=== PATIENT | female | born 1945 | race Caucasian/White ===

== ENCOUNTER 2016-12-10 19:11 | Inpatient (IN) | payer MEDICARE ==
[2016-12-10] MEDS ORDERED: Morphine INJ* 10 MG/ML 1 ML SYRINGE SUBCUT ONE (20:29)
[2016-12-10] MEDS ORDERED: Morphine INJ* 10 MG/ML 1 ML SYRINGE IV ONE ×2 (20:38→23:20)
[2016-12-10 21:15] LABS: Hematocrit 34 % (35-47); Hemoglobin 10.7 g/dl (12.0-16.0); Mean Corpuscular HGB Conc 31 g/dl (31-36); Mean Corpuscular Hemoglobin 25 pg (27-31); Mean Corpuscular Volume 79 fL (80-97); Mean Platelet Volume 7 um3 (7.4-10.4); Red Blood Count 4.33 10^6/ul (4.0-5.4); Red Cell Distribution Width 17 % (10.5-15)
[2016-12-10 21:22] LABS: Albumin 3.7 g/dL (3.2-5.2); BUN/Creatinine Ratio 16.9 (8-20); C Reactive Protein 18.43 mg/L (< 5.00); Calcium 9.2 mg/dL (8.6-10.3); EGFR African American 87.4 (>60); Globulin 3.5 g/dL (2-4); Potassium 4.4 mmol/L (3.5-5.0); Total Bilirubin 0.7 mg/dL (0.2-1.0); Total Protein 7.2 g/dL (6.4-8.9)
[2016-12-10] MEDS ORDERED: oxyCODONE/Acetamin 5/325 MG* TAB PO ONE (22:45)
[2016-12-11] MEDS ORDERED: Morphine INJ* 10 MG/ML 1 ML SYRINGE IV ONE (03:43)
[2016-12-11] MEDS ORDERED: Bisacodyl SUPP* 10 MG SUPP PR PRN (05:18)
--- NOTE | 2016-12-11 07:41 | RAD ---
HISTORY: Pain and weakness, leg giving out, right hip COMPARISONS: None VIEWS: 4, Frontal view of the pelvis with frontal and frog-leg views of the right hip FINDINGS: BONE DENSITY: Normal. BONES: There is no displaced fracture. JOINTS: There is mild osteoarthritis of the hips and SI joints bilaterally. ALIGNMENT: There is no dislocation. SOFT TISSUES: Unremarkable. OTHER FINDINGS: Degenerative changes are noted of the spine IMPRESSION: OSTEOARTHRITIS. NO ACUTE OSSEOUS INJURY. IF SYMPTOMS PERSIST, RECOMMEND REPEAT IMAGING.
--- NOTE | 2016-12-11 07:42 | RAD ---
HISTORY: Pain, weakness, right knee tibia COMPARISONS: None VIEWS: 5, Frontal, lateral, axial, and oblique views of the right knee. The axial views are technically limited. FINDINGS: BONE DENSITY: There is diffuse osteopenia. BONES: There is no displaced fracture. JOINTS: There is advanced tricompartmental osteoarthritis. ALIGNMENT: There is no dislocation. SOFT TISSUES: Unremarkable. OTHER FINDINGS: None. IMPRESSION: ADVANCED OSTEOARTHRITIS. NO ACUTE OSSEOUS INJURY. IF SYMPTOMS PERSIST, RECOMMEND REPEAT IMAGING.
--- NOTE | 2016-12-11 07:44 | RAD ---
HISTORY: Right lower extremity pain COMPARISONS: April 27, 2013 TECHNIQUE: Multiple transverse and longitudinal ultrasound images were obtained of the right lower extremity from the level of the common femoral vein inferiorly through to the infrapopliteal veins using grayscale, color Doppler, and spectral Doppler imaging with and without compression and with augmentation. Comparison images were obtained of the contralateral common femoral vein. FINDINGS: The study is limited by patient body habitus. There is limited evaluation of the peroneal veins. VEINS: The venous system of the right lower extremity is compressible throughout its course, with normal flow on color Doppler imaging and normal response to augmentation on spectral Doppler imaging. SOFT TISSUES: Unremarkable. OTHER FINDINGS: None. IMPRESSION: LIMITED STUDY. NO RIGHT LOWER EXTREMITY DEEP VEIN THROMBOSIS
--- NOTE | 2016-12-11 08:11 | ED ---
Wilbert Chávez Janilya, scribed for Griselda Fields MD on 12/10/16 at 1953 . Lower Extremity - HPI Summary HPI Summary: A 71 y/o female came in to [facility] presenting w/ a gradual onset of constant chronic R leg pain. Severity rated 8/10 per triage note. Pt states a month ago, pt was given Lasix by Dr. Saenz for pedal edema. When she has shoes on, the edema is more under control. Today, pt had Lasix at 1330 20 mg. At 1500, pt reports knee swelling, numbness, prickly sensation, and pain to touch. At 1800, pt could not ambulate or stand up. She states her leg was "bent". Also, pt has started physical therapy on Wednesday, 12/08. She believes she might have pulled a muscle during PT because she started having front leg pain. In addition, pt has been doing heel to toe home exercises. Pt states on the third day of the second week, she started having severe hip pain. Pt was seen at [facility] for lab work today. Pt usually takes Oxycodone and oxycontin prescribed by Dr. Olson for chronic pain. Pt has had several Doppler studies - all normal according to pt. PMHx PE 3 years ago. - History of Current Complaint Chief Complaint: EDExtremityLower Stated Complaint: RT LEG PAIN Time Seen by Provider: 12/10/16 19:17 Hx Obtained From: Patient, Family/Public Policy Professor - daughter Onset of Pain: Days Onset/Duration: Worse Since - Physical therapy on 12/08 Severity Initially: Moderate Severity Currently: Moderate Pain Intensity: 8 Pain Scale Used: 0-10 Numeric Timing: Constant Location: Is Discrete @ - right leg Character Of Pain: Aching Associated Signs And Symptoms: Positive: Swelling, Knee Pain Aggravating Factor(s): Standing, Ambulation, Weight Bearing Alleviating Factor(s): Nothing Able to Bear Weight: No - Risk Factors Gout Risk Factors: Diabetes, Obesity DVT Risk Factors: Prior PE, Other: - morbid obesity Septic Arthritis Risk Factor: Negative - Allergies/Home Medications Allergies/Adverse Reactions: Allergies Allergy/AdvReac Type Severity Reaction Status Date / Time Clindamycin Allergy Nausea Verified 05/12/14 11:14 crab Allergy Hives Uncoded 04/27/13 13:58 Home Medications: Home Medications Furosemide [Lasix] 20 mg PO DAILY 12/10/16 [History Confirmed 12/10/16] Warfarin Sodium [Coumadin] 2.5 mg PO QPM 12/10/16 [History Confirmed 12/10/16] PMH/Surg Hx/FS Hx/Imm Hx Previously Healthy: No - morbid obesity Endocrine/Hematology History: Reports: 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 Denies: Hx Diabetes Cardiovascular History: Reports: Hx Hypercholesterolemia - HYPERLIPIDEMIA, Hx Hypertension Respiratory History: Reports: Hx Pulmonary Embolism History: Musculoskeletal History: Reports: Hx Arthritis - BL KNEES Sensory History: Reports: Hx Contacts or Glasses Opthamlomology History: Reports: Hx Contacts or Glasses - Surgical History Surgery Procedure, Year, and Place: 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,,appendectomy,[place] Infectious Disease History: No Infectious Disease History: Denies: Traveled Outside the [place] in Last 30 Days - Family History Known Family History: Positive: Cardiac Disease - father, Diabetes - mother, Other - breast cancer - mother Negative: Hypertension - Social History Alcohol Use: Occasionally Substance Use Type: Reports: None Smoking Status (MU): Former Smoker Type: Cigarettes Review of Systems Constitutional: Negative Gastrointestinal: Negative Positive: frequency Positive: Arthralgia - R leg pain, hip pain, Myalgia - R leg pain, hip pain, Edema Positive: Rash - chronic venous stasis changes bilat Positive: Paresthesia - "prickly" sensation, Numbness Psychological: Normal All Other Systems Reviewed And Are Negative: Yes Physical Exam Triage Information Reviewed: Yes Vital Signs On Initial Exam: Initial Vitals Temp Pulse Resp BP Pulse Ox 98.9 F 75 14 136/67 97 12/10/16 19:11 12/10/16 19:11 12/10/16 19:11 12/10/16 19:11 12/10/16 19:11 Vital Signs Reviewed: Yes Appearance: Positive: Well-Appearing, Well-Nourished, Pain Distress Skin: Positive: Warm, Skin Color Reflects Adequate Perfusion, Dry, Other - 3 cm and 2 cm ecchymosis of green, purple, and yellow colors at femoral crease. venous stasis changes bilat lower extrem Head/Face: Positive: Normal Head/Face Inspection Eyes: Positive: EOMI, Conjunctiva Clear ENT: Positive: Normal ENT inspection, Hearing grossly normal. Negative: Muffled /hoarse voice Neck: Positive: Supple Respiratory/Lung Sounds: Positive: Clear to Auscultation, Breath Sounds Present Cardiovascular: Positive: RRR, Pulses are Symmetrical in both Upper and Lower Extremities. Negative: Murmur Abdomen Description: Positive: Nontender, Soft Bowel Sounds: Positive: Present Musculoskeletal: Positive: Limited @ - right leg, Pain @ - right hip and right knee, Edema Left, Edema Right, Other - R calf and R lateral hip tenderness. Negative: Strength/ROM Intact, Prosper Sign Left, Prosper Sign Right Neurological: Positive: Sensory/Motor Intact, Alert, Oriented to Person Place, Time. Negative: Facial Droop, Focal Deficit @, Slurred Speech Psychiatric: Positive: Normal - Phyllis Coma Scale Coma Scale Total: 15 Diagnostics - Vital Signs Vital Signs Temp Pulse Resp BP Pulse Ox 12/10/16 19:11 98.9 F 75 14 136/67 97 - Laboratory Lab Results: Lab Results 12/10/16 12/10/16 12/10/16 Range/Units 20:55 20:55 20:55 WBC 12.0 H (3.5-10.8) 10^3/ul RBC 4.33 (4.0-5.4) 10^6/ul Hgb 10.7 L (12.0-16.0) g/dl Hct 34 L (35-47) % MCV 79 L (80-97) fL MCH 25 L (27-31) pg MCHC 31 (31-36) g/dl RDW 17 H (10.5-15) % Plt Count 321 (150-450) 10^3/ul MPV 7 L (7.4-10.4) um3 Neut % (Auto) 88.5 H (38-83) % Lymph % (Auto) 6.0 L (25-47) % [place] % (Auto) 3.9 (1-9) % Eos % (Auto) 0.3 (0-6) % Baso % (Auto) 1.3 (0-2) % Absolute Neuts (auto) 10.6 H (1.5-7.7) 10^3/ul Absolute Lymphs (auto) 0.7 L (1.0-4.8) 10^3/ul Absolute Monos (auto) 0.5 (0-0.8) 10^3/ul Absolute Eos (auto) 0 (0-0.6) 10^3/ul Absolute Basos (auto) 0.2 (0-0.2) 10^3/ul Absolute Nucleated RBC 0.01 10^3/ul Nucleated RBC % 0.1 INR (Anticoag Therapy) 3.94 H (0.89-1.11) APTT 58.8 H (26.0-36.3) seconds D-Dimer, Quantitative 428 H (Less Than 230) ng/mL Sodium 131 L (133-145) mmol/L Potassium 4.4 (3.5-5.0) mmol/L Chloride 97 L (101-111) mmol/L Carbon Dioxide 30 (22-32) mmol/L Anion Gap 4 (2-11) mmol/L BUN 14 (6-24) mg/dL Creatinine 0.83 (0.51-0.95) mg/dL Est GFR ( Amer) 87.4 (>60) Est GFR (Non-Af Amer) 68.0 (>60) BUN/Creatinine Ratio 16.9 (8-20) Glucose 131 H (70-100) mg/dL Calcium 9.2 (8.6-10.3) mg/dL Total Bilirubin 0.70 (0.2-1.0) mg/dL AST 16 (13-39) U/L ALT 12 (7-52) U/L Alkaline Phosphatase 50 (34-104) U/L C-Reactive Protein 18.43 H (< 5.00) mg/L Total Protein 7.2 (6.4-8.9) g/dL Albumin 3.7 (3.2-5.2) g/dL Globulin 3.5 (2-4) g/dL Albumin/Globulin Ratio 1.1 (1-3) Result Diagrams: 12/10/16 20:55 12/10/16 20:55 Lab Statement: Any lab studies that have been ordered have been reviewed, and results considered in the medical decision making process. - Radiology knee Xray Interpretation: Positive (See Comments) - Severe bone on bone osteoarthritic changes w/ sclerosis. Osteophyte. Complete collapse of medial compartment. Radiology Interpretation Completed By: ED Physician - Dr. Fields hip/pelvis Xray Interpretation: No Acute Changes - Negative examination Radiology Interpretation Completed By: ED Physician - Dr. Fields - Additional Comments Diagnostic Additional Comments: Venous Doppler: R lower extremity venous duplex negative for DVT Re-Evaluation - Re-Evaluation First Eval Re-Evaluation Time: 12:19 Change: Unchanged Comment: Examined legs. Discussed xray results, lab workups, and evaluate ability to ambulate. Pt able to stand, but unable to bear weight as right knee gives out. Second Eval Re-Evaluation Time: 03:45 - c/o continued pain, will medicate again with morphine IV Change: Unchanged Lower Extremity Course/Dx - Diagnoses Differential Diagnosis/HQI/PQRI: Positive: Arthritis, Cellulitis, DVT, Sprain, Strain Provider Diagnoses: Arthritis - Physician Notifications Discussed Care of Patient With: Dr. Conde (hospitalist) at 0245: agrees to evaluate pt for admission for pain control. Discharge - Discharge Plan Condition: Stable Disposition: ADMITTED TO [facility] documentation as recorded by the Wilbert shirley Janilya accurately reflects the service I personally performed and the decisions made by Donnie lees Barbara J, MD.
[2016-12-11] MEDS ORDERED: oxyCODONE SR TAB(*) 20 MG TAB.SR PO SCH ×2 (09:00→10:30)
[2016-12-11] MEDS ORDERED: [UNRECOGNIZED DRUG - MIXTURE] PO SCH (09:00)
[2016-12-11] MEDS ORDERED: GARLIC 1000 MG PO SCH (09:00)
[2016-12-11] MEDS ORDERED: OMEGA PO SCH (09:00)
--- NOTE | 2016-12-11 09:19 | PN ---
Subjective Date of Service: 12/11/16 Interval History: Patient seen this morning. States she continues to have R knee pain, has not been out of bed since the ED. Urinating frequently, has been using depends as she does at home. Unsure if leg is less edematous. Pain began around the anterior knee/thigh and then after exercising with PT developed pain in the hip area on the R which seemed to improve with alteration of her exercises (calf raises). Family History: Unchanged from Admission Social History: Unchanged from Admission Past Medical History: Unchanged from Admission Objective Active Medications: Aspirin (Aspirin Ec Low Dose*) 81 mg PO DAILY [facility] Atorvastatin Calcium (Lipitor*) 10 mg PO BEDTIME [facility] Bisacodyl (Dulcolax Supp*) 10 mg [place] DAILY PRN Calcium/Vitamin D (Oscal D Tab 250/125*) 1 tab PO BID [facility] Furosemide (Lasix Tab*) 20 mg PO DAILY [facility] ([place]-3 Fatty Acids ([Fish Oil] 1 Cap)) 1 cap PO BID [facility]AN[facility] Oxycodone HCl (Oxycontin(*)) 20 mg PO BID [facility] Oxycodone HCl (Roxycodone Tab*) 10 mg PO Q4H [facility] Pharmacy Profile Note (Coumadin Per Pharmacy*) 1 note FOLLOW UP 1700 [facility] Polyethylene Glycol/Electrolytes (Miralax*) 17 gm PO DAILY PRN Valsartan (Diovan Tab*) 80 mg PO DAILY [facility] Warfarin Sodium (Coumadin Tab(*)) 2.5 mg PO 1700 [facility] Vital Signs 12/11/16 12/11/16 05:30 06:44 Temperature 97.9 F Pulse Rate 71 73 Respiratory 20 Rate Blood Pressure 97/43 127/56 (mmHg) O2 Sat by Pulse 93 96 Oximetry Oxygen Devices in Use Now: None Appearance: Super morbid obese, elderly F, laying in bed in NAD Eyes: No Scleral Icterus Ears/Nose/Mouth/Throat: Mucous Membranes Moist Neck: NL Appearance and Movements; NL JVP Respiratory: Symmetrical Chest Expansion and Respiratory Effort, Clear to Auscultation - in lateral and anterior andujar Cardiovascular: NL Sounds; No Murmurs; No JVD, RRR Abdominal: NL Sounds; No Tenderness; No Distention Lymphatic: No Cervical Adenopathy Extremities: - - Definite pedal edema B/L, does not seem to have much difference in edema in legs otherwise but difficult to tell due to morbid obesity, cannot identify landmarks in the knee, do not appreciate effusion, attempted anterior and posterior drawer tests which seem to be negative, no worsening pain with lateral or medial tension, reports pain when she attempts to flex the knee, no TTP at hip Skin: - - Chronic LE skin changes Neurological: Alert and Oriented x 3 Result Diagrams: 12/10/16 20:55 12/10/16 20:55 Assess/Plan/Problems-Billing Assessment: RLE pain in a 71 yo F with super morbid obesity, LE edema, HTN, HLD, hx of PE on coumadin - Patient Problems (1) Acute pain of right lower extremity Current Visit: Yes Comment: on chronic. May be combination of acute on chronic OA, LE edema, possible muscle/ligament strain. Some symptoms sound like possible IT band syndrome but this seems less likely. Exam incredibly difficult due to habitus. Imaging negative for fracture, shows OA. Will continue home narcotic regimen. Will add ATC tylenol and antiinflammatories. PT eval pending. (2) HTN (hypertension) Current Visit: No Comment: Continue home Losartan (3) Pulmonary embolism Current Visit: No Comment: INR supratherapeutic, hold Warfarin for now (4) Leg edema Current Visit: Yes Comment: Continue home Lasix (5) Obesity, morbid, BMI 50 or higher Current Visit: No (6) DVT prophylaxis Current Visit: Yes Comment: Warfarin Status and Disposition: PT eval pending
[2016-12-11] MEDS: Aspirin EC Low Dose* 81 MG TAB.EC PO SCH (10:36)
[2016-12-11] MEDS: oxyCODONE TAB* 5 MG TAB PO SCH ×6 (10:37→21:03)
[2016-12-11] MEDS: Calcium/Vitamin D TAB 250/125* TAB PO SCH ×2 (10:37→21:04)
[2016-12-11] MEDS: Furosemide TAB* 20 MG PO SCH (10:38)
[2016-12-11] MEDS: Valsartan TAB* 80 MG PO SCH (10:38)
[2016-12-11] MEDS: Acetaminophen TAB* 325 MG PO SCH ×3 (10:41→21:03)
--- NOTE | 2016-12-11 13:55 | HP ---
HISTORY AND PHYSICAL: DATE OF ADMISSION: 12/11/16 PRIMARY CARE PHYSICIAN: Anum Saenz MD CHIEF COMPLAINT: Knee pain. HISTORY OF PRESENT ILLNESS: The patient is a 71-year-old woman who was in her usual state of health until this and at about 6 p.m., she stood up to go to the bathroom and after she did, she developed significant pain in her right knee. It became so bad that she stumbled backwards and had to sit back in her chair. The pain was about 10/10 in severity. Because she could not get up, she came to the hospital for further evaluation. In the ER, she received morphine and Percocet and this seemed to help. So she tried to stand up with a walker, but said her right knee buckled and she was unable to keep any weight on. Pain can be excruciating and she has a history of chronic pain and takes numerous opioids for this problem. In the ER, the patient was evaluated and there was no evidence of fracture on any of the imaging studies. PAST MEDICAL HISTORY: Significant for pulmonary embolism, pneumonia, hypertension, hyperlipidemia, and osteoarthritis. CURRENT MEDICATIONS: Are as follows: 1. Garlic 1000 mg daily. 2. Dulcolax 10 mg p.r. daily as needed. 3. MiraLAX 17 g daily as needed. 4. [place]-3 fatty acid 1 capsule twice daily. 5. Calcium with vitamin D 1 tablet twice daily. 6. Aspirin 81 mg daily. 7. Furosemide 20 mg daily. 8. Oxycodone 10 mg every 4 hours as needed. 9. Warfarin 2.5 mg in the evening. 10. OxyContin 20 mg twice daily. 11. Valsartan 80 mg daily. 12. Simvastatin 20 mg at bedtime. ALLERGIES: She has an allergy/adverse reaction to CLINDAMYCIN and CRABS. FAMILY HISTORY: Mother at 50 of bone cancer and father at 90 of old age. Brother, diabetes. SOCIAL HISTORY: She quit tobacco in 1973, but smoked only for 4 years. Social alcohol. No recreational drug use. She is a with 2 children. Her daughter, Lucía Gunn, , is her healthcare proxy. REVIEW OF SYSTEMS: A 14-point review of systems was completed with the patient. All pertinent positives and negatives are in the history of present illness, otherwise negative. PHYSICAL EXAMINATION GENERAL: A pleasant woman, lying in bed, in no acute distress. VITAL SIGNS: Blood pressure 130/44, pulse ox 93%, heart rate 69 beats per minute, and temperature is 98.9 degrees. HEENT: Normocephalic, atraumatic. Pupils equal, round, reactive to light. Moist mucous membranes. NECK: Supple. No JVD, bruits, palpable thyroid, or lymphadenopathy. CHEST: Clear to auscultation and percussion bilaterally. CARDIOVASCULAR: S1, S2 appreciated. Regular rate and rhythm. ABDOMEN: Positive bowel sounds in all 4 quadrants. Soft, nontender, and nondistended. EXTREMITIES: No cyanosis, clubbing, or edema. No tenderness to palpation of her knees. She has got such a large legs that is unable to really distinguish her kneecap. NEUROLOGIC: Alert and oriented x3. She moves all extremities. SKIN: No rashes or abnormalities. DIAGNOSTIC STUDIES/LAB DATA: Her white count is 12.0, hemoglobin 15.7, hematocrit 44, and platelets 221. Sodium 131, potassium 4.4, chloride 97, CO2 30, BUN 14, creatinine 0.83, and glucose 131. Her INR was 2.94. Knee x-ray, preliminary reading showed no evidence of fracture. Venous duplex showed no evidence of a DVT. ASSESSMENT AND PLAN: 1. Right knee pain: This probably is an exacerbation of the patient's arthritis. She is on chronic pain meds, started feeling better. We will get a PT consult but the patient should leave by later today. She is a candidate for the CDU unit. 2. History of a pulmonary embolism: Continue Coumadin. INR is right now supratherapeutic; so if she stays overnight for unknown reason, they should hold the Coumadin. 3. Hypertension: Blood pressure adequately controlled. Continue current regimen. 4. FEN: Low-fat diet 5. DVT prophylaxis: She is on Coumadin and anticoagulated. 6. The patient is a full code. TIME SPENT: Over 75 minutes was spent on this H and P; more than 40 minutes of which was spent in direct [id number] contact with the patient, evaluation, physical exam, counseling, and coordination of care. CC: Dr. Saenz* [id number]/[facility] #: [id number] PLAINVIEW HOSPITALFreida
[2016-12-11] MEDS ORDERED: Warfarin TAB(*) 2.5 MG PO SCH (17:00)
[2016-12-11] MEDS: oxyCODONE SR TAB(*) 20 MG TAB.SR PO SCH (21:04)
[2016-12-11] MEDS: OMEGA PO SCH (21:04)
[2016-12-11] MEDS: Polyethylene Glycol 3350* 17 GM PACKET PO PRN (21:05)
[2016-12-11] MEDS: Atorvastatin* 10 MG TAB PO SCH (21:05)
[2016-12-12] MEDS: oxyCODONE TAB* 5 MG TAB PO SCH ×6 (03:15→23:33)
[2016-12-12] MEDS: Calcium/Vitamin D TAB 250/125* TAB PO SCH ×2 (09:24→20:36)
[2016-12-12] MEDS: oxyCODONE SR TAB(*) 20 MG TAB.SR PO SCH ×2 (09:25→20:36)
[2016-12-12] MEDS: Furosemide TAB* 20 MG PO SCH (09:26)
[2016-12-12] MEDS: Acetaminophen TAB* 325 MG PO SCH ×3 (09:26→20:35)
[2016-12-12] MEDS: Valsartan TAB* 80 MG PO SCH (09:26)
[2016-12-12] MEDS: Aspirin EC Low Dose* 81 MG TAB.EC PO SCH (09:26)
[2016-12-12] MEDS: OMEGA PO SCH ×2 (09:28→20:37)
--- NOTE | 2016-12-12 13:06 | PN ---
Subjective Date of Service: 12/12/16 Interval History: Patient seen this afternoon. States she has had continued pain, better at the moment but was more severe this morning after her pain medication was a little late. OK PO intake. Feels LE swelling is improving with Lasix. Family History: Unchanged from Admission Social History: Unchanged from Admission Past Medical History: Unchanged from Admission Objective Active Medications: Acetaminophen (Tylenol Tab*) 975 mg PO TID [facility] Aspirin (Aspirin Ec Low Dose*) 81 mg PO DAILY [facility] Atorvastatin Calcium (Lipitor*) 10 mg PO BEDTIME [facility] Bisacodyl (Dulcolax Supp*) 10 mg [place] DAILY PRN Calcium/Vitamin D (Oscal D Tab 250/125*) 1 tab PO BID [facility] Fish Oil (Fish Oil (Nf)) 1,000 mg PO BID [facility] Furosemide (Lasix Tab*) 20 mg PO DAILY [facility] Ibuprofen (Motrin Tab*) 600 mg PO Q6H PRN Oxycodone HCl (Oxycontin(*)) 20 mg PO BID [facility] Oxycodone HCl (Roxycodone Tab*) 10 mg PO Q4HR [facility] Pharmacy Profile Note (Coumadin Per Pharmacy*) 1 note FOLLOW UP 1700 [facility] Polyethylene Glycol/Electrolytes (Miralax*) 17 gm PO DAILY PRN Valsartan (Diovan Tab*) 80 mg PO DAILY [facility] Vital Signs 12/11/16 12/11/16 12/11/16 15:47 16:17 17:51 Temperature 98.7 F Pulse Rate 77 Respiratory 17 16 16 Rate Blood Pressure 127/51 (mmHg) O2 Sat by Pulse 94 Oximetry 12/12/16 12/12/16 12/12/16 03:54 05:15 05:50 Temperature 98.3 F Pulse Rate 73 Respiratory 18 18 18 Rate Blood Pressure 141/57 (mmHg) O2 Sat by Pulse 96 Oximetry 12/12/16 12/12/16 12/12/16 07:37 07:50 08:00 Temperature 97.8 F Pulse Rate 71 Respiratory 18 18 18 Rate Blood Pressure 139/62 (mmHg) O2 Sat by Pulse 96 Oximetry Oxygen Devices in Use Now: None Appearance: Obese, F, laying in bed in NAD Eyes: No Scleral Icterus Ears/Nose/Mouth/Throat: Mucous Membranes Moist Neck: NL Appearance and Movements; NL JVP Respiratory: Symmetrical Chest Expansion and Respiratory Effort, Clear to Auscultation Cardiovascular: NL Sounds; No Murmurs; No JVD, RRR Abdominal: NL Sounds; No Tenderness; No Distention, - - Obese, soft Lymphatic: No Cervical Adenopathy Extremities: - - B/L LE edema, non-pitting. Better ROM in LLE, pain in R knee limiting movement, difficult to examine due to habitus, cannot appreciate effuison Neurological: Alert and Oriented x 3 Result Diagrams: 12/10/16 20:55 12/10/16 20:55 Assess/Plan/Problems-Billing Assessment: RLE pain in a 71 yo F with super morbid obesity, LE edema, HTN, HLD, hx of PE on coumadin - Patient Problems (1) Acute pain of right lower extremity Current Visit: Yes Comment: on chronic. May be combination of acute on chronic OA, LE edema, possible muscle/ligament strain. Some symptoms sound like possible. Imaging negative for fracture, shows OA. Will continue home narcotic regimen. Continue ATC tylenol and antiinflammatories. Continue PT eval. If not improving by Wednesday can consider additional imaging (MRI) but I'm not convinced this will show much. (2) HTN (hypertension) Current Visit: No Comment: Continue home Losartan (3) Pulmonary embolism Current Visit: No Comment: Coumadin dosing as per pharmacy (4) Leg edema Current Visit: Yes Comment: Continue home Lasix (5) Obesity, morbid, BMI 50 or higher Current Visit: No (6) DVT prophylaxis Current Visit: Yes Comment: Warfarin Status and Disposition: May need HLOC
[2016-12-12] MEDS: Ibuprofen TAB* 600 MG PO PRN ×2 (14:16→23:33)
[2016-12-12] MEDS ORDERED: Warfarin TAB(*) 1 MG PO ONE (18:00)
[2016-12-12] MEDS: Atorvastatin* 10 MG TAB PO SCH (20:36)
[2016-12-13] MEDS: oxyCODONE TAB* 5 MG TAB PO SCH ×6 (03:12→22:00)
[2016-12-13 07:52] LABS: Hematocrit 31 % (35-47); Hemoglobin 9.7 g/dl (12.0-16.0); Mean Corpuscular HGB Conc 31 g/dl (31-36); Mean Corpuscular Hemoglobin 25 pg (27-31); Mean Corpuscular Volume 81 fL (80-97); Mean Platelet Volume 7 um3 (7.4-10.4); Red Blood Count 3.87 10^6/ul (4.0-5.4); Red Cell Distribution Width 18 % (10.5-15); White Blood Count 8.3 10^3/ul (3.5-10.8)
[2016-12-13 08:08] LABS: Add Diff/Slide Review? Slide Review Added; Comments Flag Yes
[2016-12-13] MEDS: Aspirin EC Low Dose* 81 MG TAB.EC PO SCH (08:59)
[2016-12-13] MEDS: Acetaminophen TAB* 325 MG PO SCH ×3 (08:59→22:00)
[2016-12-13] MEDS: Furosemide TAB* 20 MG PO SCH (09:00)
[2016-12-13] MEDS: Calcium/Vitamin D TAB 250/125* TAB PO SCH ×2 (09:00→22:00)
[2016-12-13] MEDS: Valsartan TAB* 80 MG PO SCH (09:00)
[2016-12-13] MEDS: oxyCODONE SR TAB(*) 20 MG TAB.SR PO SCH ×2 (09:01→22:00)
[2016-12-13] MEDS: OMEGA PO SCH ×2 (09:03→22:01)
--- NOTE | 2016-12-13 11:03 | PN ---
Subjective Date of Service: 12/13/16 Interval History: Patient seen this morning. Pleased with her progress. Feels ibuprofen has been helpful. Has been able to support weight on her R knee and has been able to get to the bedside commode with assistance. Family History: Unchanged from Admission Social History: Unchanged from Admission Past Medical History: Unchanged from Admission Objective Active Medications: Acetaminophen (Tylenol Tab*) 975 mg PO TID [facility] Aspirin (Aspirin Ec Low Dose*) 81 mg PO DAILY [facility] Atorvastatin Calcium (Lipitor*) 10 mg PO BEDTIME [facility] Bisacodyl (Dulcolax Supp*) 10 mg [place] DAILY PRN Calcium/Vitamin D (Oscal D Tab 250/125*) 1 tab PO BID [facility] Fish Oil (Fish Oil (Nf)) 1,000 mg PO BID [facility] Furosemide (Lasix Tab*) 20 mg PO DAILY [facility] Ibuprofen (Motrin Tab*) 600 mg PO Q6H PRN Oxycodone HCl (Oxycontin(*)) 20 mg PO BID [facility] Oxycodone HCl (Roxycodone Tab*) 10 mg PO Q4HR [facility] Pharmacy Profile Note (Coumadin Per Pharmacy*) 1 note FOLLOW UP 1700 [facility] Polyethylene Glycol/Electrolytes (Miralax*) 17 gm PO DAILY PRN Valsartan (Diovan Tab*) 80 mg PO DAILY [facility] Warfarin Sodium (Coumadin Tab(*)) 2.5 mg PO 1700 [facility] Vital Signs 12/12/16 12/12/16 12/12/16 11:25 14:13 15:57 Temperature 98.8 F Pulse Rate 77 Respiratory 18 18 18 Rate Blood Pressure 126/45 (mmHg) O2 Sat by Pulse 96 Oximetry 12/12/16 12/12/16 12/12/16 20:36 22:36 23:31 Temperature 98.3 F Pulse Rate 71 Respiratory 16 18 16 Rate Blood Pressure 115/49 (mmHg) O2 Sat by Pulse 95 Oximetry 12/13/16 12/13/16 12/13/16 07:40 08:00 09:00 Temperature 97.6 F Pulse Rate 59 Respiratory 16 18 18 Rate Blood Pressure 119/53 (mmHg) O2 Sat by Pulse 95 Oximetry Oxygen Devices in Use Now: None Appearance: Morbidly obese, F, laying in bed in NAD Eyes: No Scleral Icterus Ears/Nose/Mouth/Throat: Mucous Membranes Moist Neck: NL Appearance and Movements; NL JVP Respiratory: Symmetrical Chest Expansion and Respiratory Effort, Clear to Auscultation Cardiovascular: NL Sounds; No Murmurs; No JVD, RRR Abdominal: NL Sounds; No Tenderness; No Distention Lymphatic: No Cervical Adenopathy Extremities: - - Mild LE edema, some improved ROM in RLE, unable to do adequate exam to habitus, no TTP Skin: No Rash or Ulcers Neurological: Alert and Oriented x 3 Result Diagrams: 12/13/16 07:25 12/10/16 20:55 Additional Lab and Data: Assess/Plan/Problems-Billing Assessment: RLE pain in a 71 yo F with super morbid obesity, LE edema, HTN, HLD, hx of PE on coumadin - Patient Problems (1) Acute pain of right lower extremity Current Visit: Yes Comment: on chronic. May be combination of acute on chronic OA, LE edema, possible muscle/ligament strain. Some symptoms sound like possible. Imaging negative for fracture, shows OA. Will continue home narcotic regimen. Continue ATC tylenol and anti-inflammatories. Continue PT sessions. (2) HTN (hypertension) Current Visit: No Comment: Continue home Losartan (3) Pulmonary embolism Current Visit: No Comment: Coumadin dosing as per pharmacy. If lower tomorrow AM will bridge with Lovenox. (4) Leg edema Current Visit: Yes Comment: Continue home Lasix (5) Obesity, morbid, BMI 50 or higher Current Visit: No (6) DVT prophylaxis Current Visit: Yes Comment: Warfarin Status and Disposition: May need HLOC
[2016-12-13] MEDS ORDERED: Warfarin TAB(*) 2.5 MG PO ONE (17:00)
[2016-12-13] MEDS: Atorvastatin* 10 MG TAB PO SCH (22:01)
[2016-12-13] MEDS: Polyethylene Glycol 3350* 17 GM PACKET PO PRN (22:07)
[2016-12-13] MEDS: Ibuprofen TAB* 600 MG PO PRN (22:10)
[2016-12-14] MEDS: oxyCODONE TAB* 5 MG TAB PO SCH ×6 (02:23→21:38)
[2016-12-14 06:58] LABS: Hematocrit 29 % (35-47); Hemoglobin 9.3 g/dl (12.0-16.0); Mean Platelet Volume 7 um3 (7.4-10.4)
[2016-12-14] MEDS: Enoxaparin(*) 80 MG/0.8 ML SYR SUBCUT SCH ×2 (08:42→21:35)
[2016-12-14] MEDS: Calcium/Vitamin D TAB 250/125* TAB PO SCH ×2 (08:43→21:34)
[2016-12-14] MEDS: Enoxaparin(*) 100 MG/ML SYR SUBCUT SCH ×2 (08:43→21:36)
[2016-12-14] MEDS: oxyCODONE SR TAB(*) 20 MG TAB.SR PO SCH ×2 (08:43→21:35)
[2016-12-14] MEDS: Acetaminophen TAB* 325 MG PO SCH ×3 (08:43→21:35)
[2016-12-14] MEDS: Furosemide TAB* 20 MG PO SCH (08:43)
[2016-12-14] MEDS: Valsartan TAB* 80 MG PO SCH (08:44)
[2016-12-14] MEDS: OMEGA PO SCH ×2 (08:44→21:34)
[2016-12-14] MEDS: Aspirin EC Low Dose* 81 MG TAB.EC PO SCH (08:44)
--- NOTE | 2016-12-14 12:11 | PN ---
Subjective Date of Service: 12/14/16 Interval History: Continues to feel improvement in symptoms. More ambulatory this morning with PT. Sitting up for hours at a time. Family History: Unchanged from Admission Social History: Unchanged from Admission Past Medical History: Unchanged from Admission Objective Active Medications: Acetaminophen (Tylenol Tab*) 975 mg PO TID [facility] Last Admin: 12/14/16 08:43 Dose: 975 mg Aspirin (Aspirin Ec Low Dose*) 81 mg PO DAILY [facility] Last Admin: 12/14/16 08:44 Dose: 81 mg Atorvastatin Calcium (Lipitor*) 10 mg PO BEDTIME [facility] Last Admin: 12/13/16 22:01 Dose: 10 mg Bisacodyl (Dulcolax Supp*) 10 mg [place] DAILY PRN PRN Reason: CONSTIPATION Calcium/Vitamin D (Oscal D Tab 250/125*) 1 tab PO BID [facility] Last Admin: 12/14/16 08:43 Dose: 1 tab Enoxaparin Sodium (Lovenox(*)) 100 mg SUBCUT BID [facility] Last Admin: 12/14/16 08:43 Dose: 100 mg Enoxaparin Sodium (Lovenox(*)) 80 mg SUBCUT BID [facility] Last Admin: 12/14/16 08:42 Dose: 80 mg Fish Oil (Fish Oil (Nf)) 1,000 mg PO BID [facility] Last Admin: 12/14/16 08:44 Dose: Not Given Furosemide (Lasix Tab*) 20 mg PO DAILY [facility] Last Admin: 12/14/16 08:43 Dose: 20 mg Ibuprofen (Motrin Tab*) 600 mg PO Q6H PRN PRN Reason: PAIN Last Admin: 12/13/16 22:10 Dose: 600 mg Oxycodone HCl (Oxycontin(*)) 20 mg PO BID [facility] Last Admin: 12/14/16 08:43 Dose: 20 mg Oxycodone HCl (Roxycodone Tab*) 10 mg PO Q4HR [facility] Last Admin: 12/14/16 10:59 Dose: 10 mg Pharmacy Profile Note (Coumadin Per Pharmacy*) 1 note FOLLOW UP 1700 [facility] Last Admin: 12/13/16 17:34 Dose: 1 note Polyethylene Glycol/Electrolytes (Miralax*) 17 gm PO DAILY PRN PRN Reason: CONSTIPATION Last Admin: 12/13/16 22:07 Dose: 17 gm Valsartan (Diovan Tab*) 80 mg PO DAILY [facility] Last Admin: 12/14/16 08:44 Dose: 80 mg Warfarin Sodium (Coumadin Tab(*)) 2.5 mg PO ONCE ONE Stop: 12/14/16 17:01 Vital Signs 12/13/16 12/13/16 12/13/16 13:46 15:46 16:06 Temperature 97.9 F Pulse Rate 70 Respiratory 18 18 Rate Blood Pressure 117/50 (mmHg) O2 Sat by Pulse 95 Oximetry 12/13/16 12/13/16 12/13/16 17:33 19:33 20:56 Temperature Pulse Rate Respiratory 18 16 16 Rate Blood Pressure (mmHg) O2 Sat by Pulse Oximetry 12/13/16 12/13/16 12/14/16 22:00 23:23 00:00 Temperature 98.0 F Pulse Rate 78 Respiratory 16 16 14 Rate Blood Pressure 134/56 (mmHg) O2 Sat by Pulse 97 Oximetry 12/14/16 12/14/16 12/14/16 02:23 04:23 06:19 Temperature Pulse Rate Respiratory 16 16 16 Rate Blood Pressure (mmHg) O2 Sat by Pulse Oximetry 12/14/16 12/14/16 12/14/16 08:00 08:03 08:43 Temperature 98.5 F Pulse Rate 66 Respiratory 18 20 Rate Blood Pressure 131/75 (mmHg) O2 Sat by Pulse 97 Oximetry 12/14/16 10:59 Temperature Pulse Rate Respiratory 18 Rate Blood Pressure (mmHg) O2 Sat by Pulse Oximetry Oxygen Devices in Use Now: None Appearance: Elderly, super morbidly obese F, laying in bed in NAD Eyes: No Scleral Icterus Ears/Nose/Mouth/Throat: Mucous Membranes Moist Neck: NL Appearance and Movements; NL JVP Respiratory: Symmetrical Chest Expansion and Respiratory Effort, Clear to Auscultation Cardiovascular: NL Sounds; No Murmurs; No JVD, RRR Abdominal: NL Sounds; No Tenderness; No Distention Lymphatic: No Cervical Adenopathy Extremities: - - B/L LE edema seems to be improving, can clearly feel patella, non-tender Skin: No Rash or Ulcers Neurological: Alert and Oriented x 3 Result Diagrams: 12/14/16 06:29 12/10/16 20:55 Additional Lab and Data: Assess/Plan/Problems-Billing Assessment: RLE pain in a 71 yo F with super morbid obesity, LE edema, HTN, HLD, hx of PE on coumadin - Patient Problems (1) Acute pain of right lower extremity Current Visit: Yes Comment: on chronic. May be combination of acute on chronic OA, LE edema, possible muscle/ligament strain. Some symptoms sound like possible. Imaging negative for fracture, shows OA. Will continue home narcotic regimen. Continue ATC tylenol and anti-inflammatories. Continue PT sessions. Will need placement. (2) HTN (hypertension) Current Visit: No Comment: Continue home Losartan (3) Pulmonary embolism Current Visit: No Comment: Coumadin dosing as per pharmacy. INR low, will bridge with Lovenox (4) Leg edema Current Visit: Yes Comment: Continue home Lasix (5) Obesity, morbid, BMI 50 or higher Current Visit: No (6) DVT prophylaxis Current Visit: Yes Comment: Warfarin/Lovenox Status and Disposition: Will need NANDO
[2016-12-14] MEDS: Ibuprofen TAB* 600 MG PO PRN (14:46)
[2016-12-14] MEDS ORDERED: Warfarin TAB(*) 2.5 MG PO ONE (17:00)
[2016-12-14] MEDS: Atorvastatin* 10 MG TAB PO SCH (21:35)
[2016-12-15] MEDS: oxyCODONE TAB* 5 MG TAB PO SCH ×3 (02:15→10:05)
[2016-12-15] MEDS: Ibuprofen TAB* 600 MG PO PRN ×2 (02:39→08:40)
--- NOTE | 2016-12-15 06:33 | DS ---
DISCHARGE SUMMARY: DATE OF ADMISSION: 12/10/16 DATE OF DISCHARGE: 12/15/16 PRIMARY CARE PHYSICIAN: Dr. Saenz. PRINCIPAL DISCHARGE DIAGNOSES: 1. Right knee pain. 2. [id number] osteoarthritis. 3. Super morbid obesity. SECONDARY DIAGNOSES: 1. Hypertension. 2. Hyperlipidemia. 3. Pulmonary embolism, on warfarin. 4. Chronic pain. STUDIES DONE DURING HOSPITALIZATION: 1. Right lower extremity Doppler - Impression: Limited study, no right lower extremity DVT. 2. Hip x-ray - Impression: Osteoarthritis. No acute osseous injury. 3. Knee x-ray - Impression: Advanced osteoarthritis. No acute osseous injury. DISCHARGE MEDICATION REGIMEN: 1. Simvastatin 20 mg by mouth at bedtime. 2. Valsartan 80 mg by mouth daily. 3. OxyContin 20 mg by mouth 3 times daily. 4. Warfarin 2.5 mg by mouth daily. 5. Oxycodone 10 mg by mouth every 4 hours as needed for pain. 6. Lasix 20 mg by mouth daily. 7. Aspirin 81 mg by mouth daily. 8. Calcium plus D plus K 750/500/40 mg one tablet by mouth 3 times daily. 9. Calcium carbonate and vitamin D one tablet by mouth 3 times daily. 10. [place]-3 fatty acid one capsule by mouth 3 times daily. 11. Polyethylene glycol one powder by mouth daily as needed for constipation. 12. Dulcolax 10 mg by mouth daily as needed for constipation. 13. Garlic 1000 mg by mouth daily. 14. Ibuprofen 600 mg by mouth every 6 hours as needed for pain. 15. Lovenox 180 mg by mouth 3 times daily until INR is therapeutic. 16. Tylenol 975 mg by mouth 3 times daily. HISTORY OF PRESENT ILLNESS AND HOSPITAL SUMMARY: Please see the full history and physical by Dr. Moise Conde for full details. Briefly, Ms. Tipton is a 71- year-old female with a past medical history as above, including super-morbid obesity who presented to the hospital with progressive right knee pain. There is no trauma involved; however, it seemed to worsen, which she attributes to doing some physical therapy exercises incorrectly. The pain progressed to the point where the patient was unable to put any weight on her right knee. She came to the emergency department. As noted above, imaging was negative for any fractures. The patient was treated with [id number] Tylenol anti- inflammatories and physical therapy. Over the following days, her symptoms improved. She did have some edema that is being treated with Lasix, which also improved over the course of the hospitalization. Her symptoms are certainly driven by her super-morbid obesity and this precluded an accurate knee exam. Despite improvement here in the hospital, the patient still needs significant assistance and will be transferred to rehab facility for further physical therapy. The patient is on Coumadin for pulmonary embolism and while hospitalized, her INR dropped below 2. She was started on therapeutic Lovenox, which should continue until her INR becomes therapeutic again. The patient will be transferred to [facility]. Total time spent on this discharge was 45 minutes. This is a summary of the hospitalization, please see the full medical record for further details. CC: Dr. Saenz* [id number]/[facility] #: [id number] SAVAN[place]H
[2016-12-15 08:05] VITALS: BP 120/46
[2016-12-15] MEDS: Valsartan TAB* 80 MG PO SCH (08:38)
[2016-12-15] MEDS: Calcium/Vitamin D TAB 250/125* TAB PO SCH (08:38)
[2016-12-15] MEDS: Acetaminophen TAB* 325 MG PO SCH (08:39)
[2016-12-15] MEDS: OMEGA PO SCH (08:39)
[2016-12-15] MEDS: Furosemide TAB* 20 MG PO SCH (08:39)
[2016-12-15] MEDS: oxyCODONE SR TAB(*) 20 MG TAB.SR PO SCH (08:39)
[2016-12-15] MEDS: Aspirin EC Low Dose* 81 MG TAB.EC PO SCH (08:39)
[2016-12-15] MEDS: Enoxaparin(*) 80 MG/0.8 ML SYR SUBCUT SCH (08:40)
[2016-12-15] MEDS: Enoxaparin(*) 100 MG/ML SYR SUBCUT SCH (08:40)
== END 2016-12-15 11:00 | DRG 556 ==
LOC: ED 19:11 → MED 12-11 05:29 → OBSVTOIN 12-11 15:37
PROVIDERS: ADMIT Internal Medicine; ATTEND Hospitalist
DX: M25.561 Pain in right knee (principal); Z68.45 Body mass index [BMI] 70 or greater, adult; I10 Essential (primary) hypertension; M17.11 Unilateral primary osteoarthritis, right knee; E66.01 Morbid (severe) obesity due to excess calories; E78.5 Hyperlipidemia, unspecified; Z86.711 Personal history of pulmonary embolism; Z79.01 Long term (current) use of anticoagulants; G89.29 Other chronic pain; Z79.82 Long term (current) use of aspirin; Z79.891 Long term (current) use of opiate analgesic; Z79.899 Other long term (current) drug therapy; Z88.8 Allergy status to other drugs, medicaments and biological substances; Z91.013 Allergy to seafood; Z83.3 Family history of diabetes mellitus; Z80.8 Family history of malignant neoplasm of other organs or systems; Z87.891 Personal history of nicotine dependence; R60.0 Localized edema
CPT/HCPCS: 36415; 80053; 85014; 85018; 85025; 85049; 85379; 85610; 85730; 86140; A9270-GY; J1650; J2270

== ENCOUNTER 2018-12-24 11:12 | Inpatient (IN) | payer MEDICARE, BC ==
--- OUTSIDE RECORDS SUMMARY | 2018-12-24 12:00 | XMS REPORT | Continuity of Care Document ---
:1945 External Reference #:[id number] Author Name Lebron Olson DO, MPH Address [address] [place] [address], [address] [place] [address] Care Team Providers Name Role Phone Anum Saenz M.D. Care Team Information Medical Assisting Instructor Unavailable Anum Saenz M.D. Primary Care Physician Unavailable Payers Date Identification Numbers Payment Provider Subscriber Effective: 2011 Policy Number: [id number] [employer] [place] Erika Tipton PayID: [id number] [address] [place] [address] Policy Number: [id number] Formerly [facility] Erika Tipton PayID: [id number] [address] [place] [address] Advance Directives Description No Information Available Problems Description No Information Family History Date Family Member(s) Observation Comments Father due to Natural Causes () Mother due to Ovarian Cancer () Children 2 Siblings 3 Grandchildren 2 Social History Type Date Description Comments Sex Unknown Marital Status Occupation Retired Work Status Not Currently Working Cigarette Use Former Cigarette Smoker 1 Pack Daily ETOH Use Denies alcohol use Tobacco Use Start: Unknown Patient has never smoked Smoking Status Reviewed: 12/06/18 Patient has never smoked Allergies, Adverse Reactions, Alerts Active Allergies Reaction Severity Comments Date Clindamycin 08/28/2013 Crab 08/28/2013 Medications Active Medications SIG Qnty Indications Ordering Provider Date Oxycontin si by mouth 60tabs Lebron Olson DO, 11/22/2013 20mg Tab ER every 12 hours MPH 12H Abuse-Det chronic pain patient Oxycodone HCL si-2 by mouth 180tabs Lebron Olson DO, 09/14/2013 5mg every 4 to 6 MPH Tablets hours as directed chronic pain patient Lasix 1 by mouth in the Unknown 40mg Tablets morning Miralax si scoop in Ud Unknown [id number] Powder 8oz of water x 3 nights ud Coumadin si po qd 30tabs Unknown 2.5mg Tablets Fish Oil Unknown 300mg Capsules Garlic Unknown 1000mg Capsules Ella Root Unknown 550mg Capsules Aspir-81 1 po qhs Unknown [address] Tablets [address] Calcium + D3 2 po daily Unknown [id number] Tablets Diovan HCT 1 po q Am Unknown 80-12.5mg Tablets Simvastatin 1 po qPM Unknown 20mg Tablets History Medications Amitiza si bid 60caps Lebron Olson DO, 04/20/2014 - 8mcg Capsules MPH 05/25/2014 Oxycontin take 2 po q12 48units Lebron Olson DO, 09/26/2013 - 10mg T12a hours ud chronic MPH 11/22/2013 pain patient 12 day script Tramadol HCL si po q8h ud 90tabs Lebron Olson DO, 08/28/2013 - 50mg chronic pain MPH 09/14/2013 Tablets patient Hydrocodone/Acetamin si po q8-12h 90tabs Unknown - ophen prn 11/22/2013 5-325mg Tablets chronic pain patient Warfarin Sodium 1 po q PM Unknown - 2.5mg 11/22/2013 Tablets Lidocaine apply 1 a day to 30units Unknown - 5% Patches affected area prn 11/26/[address] 1 PO bid 60tabs Unknown - 01/23/2015 75mg Tablets Immunizations Description No Information Available Vital Signs Date Vital Result Comment 12/06/2018 2:13pm Respiratory Rate 20 /min Weight 303.00 lb Pain Level Without Medicine 9 without meds 11/03/2018 2:22pm BP Systolic 128 mmHg BP Diastolic 76 mmHg Heart Rate 78 /min Respiratory Rate 20 /min Height 62 inches 5'2" Weight 304.00 lb Pain Level 2 Pain at this time. Pain Level With Medicine 1 on average with meds Pain Level Without Medicine 10 06/01 without meds BMI (Body Mass Index) 55.6 kg/m2 09/23/2018 2:18pm BP Systolic 128 mmHg BP Diastolic 78 mmHg Heart Rate 74 /min Respiratory Rate 20 /min Height 62 inches 5'2" Weight 302.00 lb Pain Level 2 Pain at this time. Pain Level With Medicine 1 on average with meds Pain Level Without Medicine 06/01 without meds BMI (Body Mass Index) 55.2 kg/m2 08/26/2018 11:11am BP Systolic 128 mmHg BP Diastolic 84 mmHg Heart Rate 86 /min Respiratory Rate 20 /min Height 62 inches 5'2" Weight 292.00 lb Pain Level 2 Pain at this time. Pain Level With Medicine 1 on average with meds Pain Level Without Medicine 06/01 without meds BMI (Body Mass Index) 53.4 kg/m2 07/26/2018 11:07am BP Systolic 128 mmHg BP Diastolic 78 mmHg Heart Rate 76 /min Respiratory Rate 20 /min Height 62 inches 5'2" Weight 290.00 lb Pain Level 2 Pain at this time. Pain Level With Medicine 1 on average with meds Pain Level Without Medicine 06/01 without meds BMI (Body Mass Index) 53.0 kg/m2 06/21/2018 10:53am BP Systolic 128 mmHg BP Diastolic 80 mmHg Heart Rate 82 /min Respiratory Rate 20 /min Height 62 inches 5'2" Weight 370.00 lb Pain Level 2 Pain at this time. Pain Level With Medicine 1 on average with meds Pain Level Without Medicine 06/01 without meds BMI (Body Mass Index) 67.7 kg/m2 05/25/2018 10:37am BP Systolic 130 mmHg BP Diastolic 84 mmHg Heart Rate 86 /min Respiratory Rate 20 /min Height 62 inches 5'2" Weight 370.00 lb Pain Level 1 Pain at this time. Pain Level With Medicine 1 on average with meds Pain Level Without Medicine 06/01 without meds BMI (Body Mass Index) 67.7 kg/m2 04/20/2018 2:11pm BP Systolic 132 mmHg BP Diastolic 84 mmHg Heart Rate 84 /min Respiratory Rate 20 /min Height 62 inches 5'2" Weight 260.00 lb Pain Level 1 Pain at this time. Pain Level With Medicine 1 on average with meds Pain Level Without Medicine 06/01 without meds BMI (Body Mass Index) 47.5 kg/m2 03/09/2018 2:10pm BP Systolic 128 mmHg BP Diastolic 84 mmHg Heart Rate 76 /min Respiratory Rate 20 /min Height 62 inches 5'2" Weight 352.00 lb Pain Level 3 Pain at this time. Pain Level With Medicine 2 on average with meds Pain Level Without Medicine 06/01 without meds BMI (Body Mass Index) 64.4 kg/m2 02/07/2018 3:06pm BP Systolic 132 mmHg BP Diastolic 84 mmHg Heart Rate 82 /min Respiratory Rate 20 /min Height 62 inches 5'2" Weight 352.00 lb Pain Level 2 Pain at this time. Pain Level With Medicine 1 on average with meds Pain Level Without Medicine 06/01 without meds BMI (Body Mass Index) 64.4 kg/m2 12/28/2017 3:18pm BP Systolic 128 mmHg BP Diastolic 84 mmHg Heart Rate 76 /min Respiratory Rate 20 /min Height 62 inches 5'2" Weight 352.00 lb Pain Level 2 Pain at this time. Pain Level With Medicine 1 on average with meds Pain Level Without Medicine 06/01 without meds BMI (Body Mass Index) 64.4 kg/m2 11/15/2017 2:15pm BP Systolic 124 mmHg BP Diastolic 76 mmHg Heart Rate 72 /min Respiratory Rate 20 /min Height 62 inches 5'2" Weight 350.00 lb Pain Level 2 Pain at this time. Pain Level With Medicine 2 on average with meds Pain Level Without Medicine 06/01 without meds BMI (Body Mass Index) 64.0 kg/m2 10/14/2017 10:24am BP Systolic 130 mmHg BP Diastolic 78 mmHg Heart Rate 76 /min Respiratory Rate 20 /min Height 62 inches 5'2" Weight 341.00 lb Pain Level 2 Pain at this time. Pain Level With Medicine 1 on average with meds Pain Level Without Medicine 06/01 without meds BMI (Body Mass Index) 62.4 kg/m2 08/30/2017 2:57pm BP Systolic 132 mmHg BP Diastolic 80 mmHg Heart Rate 86 /min Respiratory Rate 20 /min Height 62 inches 5'2" Weight 341.00 lb Pain Level 3 Pain at this time. Pain Level With Medicine 2 on average with meds Pain Level Without Medicine 06/01 without meds BMI (Body Mass Index) 62.4 kg/m2 07/21/2017 10:29am BP Systolic 128 mmHg BP Diastolic 74 mmHg Heart Rate 76 /min Respiratory Rate 20 /min Height 62 inches 5'2" Weight 341.00 lb Pain Level 2 Pain at this time. Pain Level With Medicine 1 on average with meds Pain Level Without Medicine 06/01 without meds BMI (Body Mass Index) 62.4 kg/m2 06/17/2017 10:27am BP Systolic 126 mmHg BP Diastolic 74 mmHg Heart Rate 76 /min Respiratory Rate 20 /min Height 62 inches 5'2" Weight 356.00 lb Pain Level 2 Pain at this time. Pain Level With Medicine 1 on average with meds Pain Level Without Medicine 06/01 without meds BMI (Body Mass Index) 65.1 kg/m2 05/11/2017 3:10pm BP Systolic 128 mmHg BP Diastolic 76 mmHg Heart Rate 74 /min Respiratory Rate 20 /min Height 62 inches 5'2" Weight 360.00 lb Pain Level 2 Pain at this time. Pain Level With Medicine 2 on average with meds Pain Level Without Medicine 06/01 without meds BMI (Body Mass Index) 65.8 kg/m2 04/12/2017 11:09am BP Systolic 126 mmHg BP Diastolic 84 mmHg Heart Rate 82 /min Respiratory Rate 20 /min Height 62 inches 5'2" Weight 375.00 lb Pain Level 2 Pain at this time. Pain Level With Medicine 1 on average with meds Pain Level Without Medicine 06/01 without meds BMI (Body Mass Index) 68.6 kg/m2 03/09/2017 10:55am BP Systolic 128 mmHg BP Diastolic 74 mmHg Heart Rate 76 /min Respiratory Rate 20 /min Height 62 inches 5'2" Weight 375.00 lb Pain Level 3 Pain at this time. Pain Level With Medicine 2 on average with meds Pain Level Without Medicine 06/01 without meds BMI (Body Mass Index) 68.6 kg/m2 02/03/2017 2:30pm BP Systolic 122 mmHg BP Diastolic 70 mmHg Heart Rate 74 /min Respiratory Rate 20 /min Height 62 inches 5'2" Weight 375.00 lb Pain Level 3 Pain at this time. Pain Level With Medicine 3 on average with meds Pain Level Without Medicine 06/01 without meds BMI (Body Mass Index) 68.6 kg/m2 01/06/2017 2:25pm BP Systolic 128 mmHg BP Diastolic 80 mmHg Heart Rate 78 /min Respiratory Rate 20 /min Height 62 inches 5'2" Weight 375.00 lb Pain Level 4 Pain at this time. Pain Level With Medicine 3 on average with meds Pain Level Without Medicine 06/01 without meds BMI (Body Mass Index) 68.6 kg/m2 11/27/2016 11:22am BP Systolic 128 mmHg BP Diastolic 86 mmHg Heart Rate 74 /min Respiratory Rate 20 /min Height 62 inches 5'2" Weight 352.00 lb Pain Level 2 Pain at this time. Pain Level With Medicine 2 on average with meds Pain Level Without Medicine 06/01 without meds BMI (Body Mass Index) 64.4 kg/m2 10/23/2016 11:26am BP Systolic 128 mmHg BP Diastolic 76 mmHg Heart Rate 84 /min Respiratory Rate 20 /min Height 62 inches 5'2" Weight 352.00 lb Pain Level 3 Pain at this time. Pain Level With Medicine 2 on average with meds Pain Level Without Medicine 06/01 without meds BMI (Body Mass Index) 64.4 kg/m2 09/24/2016 2:29pm BP Systolic 130 mmHg BP Diastolic 84 mmHg Heart Rate 82 /min Respiratory Rate 18 /min Height 62 inches 5'2" Weight 354.00 lb Pain Level 3 Pain at this time. Pain Level With Medicine 3 on average with meds Pain Level Without Medicine 06/01 without meds BMI (Body Mass Index) 64.7 kg/m2 08/26/2016 3:14pm BP Systolic 132 mmHg BP Diastolic 84 mmHg Heart Rate 80 /min Respiratory Rate 20 /min Height 62 inches 5'2" Weight 354.00 lb Pain Level 5 Pain at this time. Pain Level With Medicine 4 on average with meds Pain Level Without Medicine 06/01 without meds BMI (Body Mass Index) 64.7 kg/m2 07/23/2016 11:06am Respiratory Rate 18 /min Height 62 inches 5'2" Weight 354.00 lb Pain Level Without Medicine 06/01 without meds BMI (Body Mass Index) 64.7 kg/m2 07/08/2016 11:17am Respiratory Rate 20 /min Height 62 inches 5'2" Weight 354.00 lb Pain Level 2 Pain at this time. Pain Level With Medicine 2 on average with meds Pain Level Without Medicine 06/01 without meds BMI (Body Mass Index) 64.7 kg/m2 06/01/2016 11:06am BP Systolic 128 mmHg BP Diastolic 80 mmHg Heart Rate 76 /min Respiratory Rate 20 /min Height 62 inches 5'2" Weight 354.00 lb Pain Level 2 Pain at this time. Pain Level With Medicine 2 on average with meds Pain Level Without Medicine 06/01 without meds BMI (Body Mass Index) 64.7 kg/m2 05/01/2016 11:04am Respiratory Rate 18 /min Height 62 inches 5'2" Weight 352.00 lb Pain Level Without Medicine 06/01 without meds BMI (Body Mass Index) 64.4 kg/m2 04/01/2016 9:02am BP Systolic 130 mmHg BP Diastolic 80 mmHg Heart Rate 76 /min Respiratory Rate 20 /min Height 62 inches 5'2" Weight 354.00 lb Pain Level 2 Pain at this time. Pain Level With Medicine 2 on average with meds Pain Level Without Medicine 06/01 without meds BMI (Body Mass Index) 64.7 kg/m2 03/03/2016 10:17am Respiratory Rate 18 /min Height 62 inches 5'2" Weight 354.00 lb Pain Level Without Medicine 06/01 without meds BMI (Body Mass Index) 64.7 kg/m2 01/30/2016 11:07am BP Systolic 136 mmHg BP Diastolic 82 mmHg Heart Rate 80 /min Respiratory Rate 20 /min Height 62 inches 5'2" Weight 354.00 lb Pain Level 4 Pain at this time. Pain Level With Medicine 3 on average with meds Pain Level Without Medicine 06/01 without meds BMI (Body Mass Index) 64.7 kg/m2 12/31/2015 10:32am BP Systolic 130 mmHg BP Diastolic 76 mmHg Heart Rate 84 /min Respiratory Rate 20 /min Height 62 inches 5'2" Weight 354.00 lb Pain Level 3 Pain at this time. Pain Level With Medicine 2 on average with meds Pain Level Without Medicine 06/01 without meds BMI (Body Mass Index) 64.7 kg/m2 12/02/2015 10:20am BP Systolic 130 mmHg BP Diastolic 78 mmHg Heart Rate 82 /min Respiratory Rate 20 /min Height 62 inches 5'2" Weight 355.00 lb Pain Level 4 Pain at this time. Pain Level With Medicine 3 on average with meds Pain Level Without Medicine 06/01 without meds BMI (Body Mass Index) 64.9 kg/m2 10/29/2015 11:07am BP Systolic 128 mmHg BP Diastolic 80 mmHg Heart Rate 76 /min Respiratory Rate 20 /min Height 62 inches 5'2" Weight 352.00 lb Pain Level 2 Pain at this time. Pain Level With Medicine 2 on average with meds Pain Level Without Medicine 10 06/01 without meds BMI (Body Mass Index) 64.4 kg/m2 09/30/2015 11:25am BP Systolic 136 mmHg BP Diastolic 80 mmHg Heart Rate 76 /min Respiratory Rate 20 /min Height 62 inches 5'2" Weight 342.00 lb Pain Level 2 Pain at this time. Pain Level With Medicine 2 on average with meds Pain Level Without Medicine 10 06/01 without meds BMI (Body Mass Index) 62.5 kg/m2 08/29/2015 11:18am BP Systolic 132 mmHg BP Diastolic 80 mmHg Heart Rate 80 /min Respiratory Rate 20 /min Height 62 inches 5'2" Weight 342.00 lb Pain Level 3 Pain at this time. Pain Level With Medicine 2 on average with meds Pain Level Without Medicine 06/01 without meds BMI (Body Mass Index) 62.5 kg/m2 07/29/2015 10:57am BP Systolic 138 mmHg BP Diastolic 78 mmHg Heart Rate 80 /min Respiratory Rate 22 /min Height 62 inches 5'2" Weight 338.00 lb Pain Level 2 Pain at this time. Pain Level With Medicine 2 on average with meds Pain Level Without Medicine 06/01 without meds BMI (Body Mass Index) 61.8 kg/m2 06/27/2015 11:22am BP Systolic 128 mmHg BP Diastolic 74 mmHg Heart Rate 72 /min Respiratory Rate 18 /min Height 62 inches 5'2" Weight 342.00 lb Pain Level 2 2/10, Pain at this time. Pain Level With Medicine 2 2/10, on average with meds Pain Level Without Medicine 10 06/01 without meds BMI (Body Mass Index) 62.5 kg/m2 05/28/2015 11:50am BP Systolic 126 mmHg BP Diastolic 78 mmHg Heart Rate 80 /min Respiratory Rate 18 /min Height 62 inches 5'2" Weight 342.00 lb Pain Level 2 2/10, Pain at this time. Pain Level With Medicine 2 2/10, on average with meds Pain Level Without Medicine 10 06/01 without meds BMI (Body Mass Index) 62.5 kg/m2 04/25/2015 11:25am BP Systolic 130 mmHg BP Diastolic 84 mmHg Heart Rate 76 /min Respiratory Rate 20 /min Height 62 inches 5'2" Weight 342.00 lb Pain Level 2 Pain at this time. Pain Level With Medicine 2 on average with meds Pain Level Without Medicine 06/01 without meds BMI (Body Mass Index) 62.5 kg/m2 03/27/2015 10:51am BP Systolic 128 mmHg BP Diastolic 80 mmHg Heart Rate 80 /min Respiratory Rate 20 /min Height 62 inches 5'2" Weight 340.00 lb Pain Level 2 Pain at this time. Pain Level With Medicine 1 on average with meds Pain Level Without Medicine 06/01 without meds BMI (Body Mass Index) 62.2 kg/m2 02/25/2015 2:37pm BP Systolic 138 mmHg BP Diastolic 82 mmHg Heart Rate 80 /min Respiratory Rate 20 /min Height 62 inches 5'2" Weight 340.00 lb Pain Level 2 Pain at this time. Pain Level With Medicine 2 on average with meds Pain Level Without Medicine 06/01 without meds BMI (Body Mass Index) 62.2 kg/m2 01/23/2015 2:26pm BP Systolic 130 mmHg BP Diastolic 78 mmHg Heart Rate 76 /min Respiratory Rate 22 /min Height 62 inches 5'2" Weight 336.00 lb Pain Level 3 Pain at this time. Pain Level With Medicine 2 on average with meds Pain Level Without Medicine 06/01 without meds BMI (Body Mass Index) 61.4 kg/m2 12/26/2014 2:38pm BP Systolic 134 mmHg BP Diastolic 78 mmHg Heart Rate 74 /min Respiratory Rate 22 /min Height 62 inches 5'2" Weight 330.00 lb Pain Level 2 Pain at this time. Pain Level With Medicine 2 on average with meds Pain Level Without Medicine 06/01 without meds BMI (Body Mass Index) 60.4 kg/m2 11/26/2014 2:11pm BP Systolic 128 mmHg BP Diastolic 84 mmHg Heart Rate 74 /min Respiratory Rate 22 /min Height 62 inches 5'2" Weight 330.00 lb Pain Level 2 Pain at this time. Pain Level With Medicine 2 on average with meds Pain Level Without Medicine 06/01 without meds BMI (Body Mass Index) 60.4 kg/m2 10/25/2014 2:29pm BP Systolic 134 mmHg BP Diastolic 84 mmHg Heart Rate 76 /min Respiratory Rate 22 /min Height 62 inches 5'2" Weight 330.00 lb Pain Level 1 Pain at this time. Pain Level With Medicine 1 on average with meds Pain Level Without Medicine 06/01 without meds BMI (Body Mass Index) 60.4 kg/m2 09/26/2014 2:23pm BP Systolic 120 mmHg BP Diastolic 74 mmHg Heart Rate 76 /min Respiratory Rate 18 /min Height 62 inches 5'2" Weight 330.00 lb Pain Level 2 2/, Pain at this time. Pain Level With Medicine 2 2/10, on average with meds Pain Level Without Medicine 06/01 without meds BMI (Body Mass Index) 60.4 kg/m2 08/27/2014 2:56pm BP Systolic 124 mmHg BP Diastolic 74 mmHg Heart Rate 78 /min Respiratory Rate 18 /min Height 62 inches 5'2" Weight 330.00 lb Pain Level 3 3, Pain at this time. Pain Level With Medicine 2 2/10, on average with meds Pain Level Without Medicine 06/01 without meds BMI (Body Mass Index) 60.4 kg/m2 07/23/2014 2:42pm BP Systolic 132 mmHg BP Diastolic 84 mmHg Heart Rate 80 /min Respiratory Rate 20 /min Height 62 inches 5'2" Weight 330.00 lb Pain Level 2 Pain at this time. Pain Level With Medicine 2 on average with meds Pain Level Without Medicine 06/01 without meds BMI (Body Mass Index) 60.4 kg/m2 06/25/2014 2:59pm BP Systolic 128 mmHg BP Diastolic 76 mmHg Heart Rate 80 /min Respiratory Rate 20 /min Height 62 inches 5'2" Weight 334.00 lb Pain Level 3 310, Pain at this time. Pain Level With Medicine 2 2/10, on average with meds Pain Level Without Medicine 06/01 without meds BMI (Body Mass Index) 61.1 kg/m2 05/25/2014 10:59am BP Systolic 124 mmHg BP Diastolic 70 mmHg Heart Rate 68 /min Respiratory Rate 18 /min Height 62 inches 5'2" Weight 334.00 lb Pain Level 3 310, Pain at this time. Pain Level With Medicine 2-3 2-10/30, on average with meds Pain Level Without Medicine 06/01 without meds BMI (Body Mass Index) 61.1 kg/m2 04/20/2014 11:02am BP Systolic 124 mmHg BP Diastolic 78 mmHg Heart Rate 76 /min Respiratory Rate 18 /min Height 62 inches 5'2" Weight 334.00 lb Pain Level 3 3, Pain at this time. Pain Level With Medicine 3 10/30, on average with meds Pain Level Without Medicine 10 06/01 without meds BMI (Body Mass Index) 61.1 kg/m2 03/20/2014 2:53pm BP Systolic 132 mmHg BP Diastolic 84 mmHg Heart Rate 80 /min Respiratory Rate 20 /min Height 62 inches 5'2" Weight 337.00 lb Pain Level 3-4 Pain at this time. Pain Level With Medicine 3 on average with meds Pain Level Without Medicine 10 06/01 without meds BMI (Body Mass Index) 61.6 kg/m2 02/19/2014 3:10pm BP Systolic 124 mmHg BP Diastolic 78 mmHg Heart Rate 84 /min Respiratory Rate 18 /min Height 62 inches 5'2" Weight 329.00 lb Pain Level 6 6, Pain at this time. Pain Level With Medicine 5 12/30, on average with meds Pain Level Without Medicine 10 06/01 without meds BMI (Body Mass Index) 60.2 kg/m2 01/18/2014 3:10pm BP Systolic 126 mmHg BP Diastolic 78 mmHg Heart Rate 78 /min Respiratory Rate 18 /min Height 62 inches 5'2" Weight 334.00 lb Pain Level 4-5 4-12/30, Pain at this time. Pain Level With Medicine 4 11/30, on average with meds Pain Level Without Medicine 10 06/01 without meds BMI (Body Mass Index) 61.1 kg/m2 12/20/2013 4:14pm BP Systolic 142 mmHg BP Diastolic 80 mmHg Heart Rate 84 /min Respiratory Rate 22 /min Height 62 inches 5'2" Weight 344.00 lb Pain Level 5-6 Pain at this time. Pain Level With Medicine 5 on average with meds Pain Level Without Medicine 10 06/01 without meds BMI (Body Mass Index) 62.9 kg/m2 11/22/2013 4:20pm BP Systolic 124 mmHg BP Diastolic 78 mmHg Heart Rate 80 /min Respiratory Rate 18 /min Height 62 inches 5'2" Weight 340.00 lb Pain Level 6 6/10, Pain at this time. Pain Level With Medicine 4 11/30, on average with meds Pain Level Without Medicine 10 06/01 without meds BMI (Body Mass Index) 62.2 kg/m2 10/31/2013 3:54pm BP Systolic 126 mmHg BP Diastolic 74 mmHg Heart Rate 76 /min Respiratory Rate 18 /min Height 62 inches 5'2" Weight 344.00 lb Pain Level 5-6 5-6, Pain at this time. Pain Level With Medicine 5 12/30, on average with meds Pain Level Without Medicine 10 06/01 without meds BMI (Body Mass Index) 62.9 kg/m2 10/10/2013 4:40pm BP Systolic 126 mmHg BP Diastolic 78 mmHg Heart Rate 78 /min Respiratory Rate 18 /min Height 62 inches 5'2" Weight 344.00 lb Pain Level 9 05/02, Pain at this time. Pain Level With Medicine 7 03/01, on average with meds Pain Level Without Medicine 10 06/01 without meds BMI (Body Mass Index) 62.9 kg/m2 09/26/2013 4:28pm BP Systolic 126 mmHg BP Diastolic 80 mmHg Heart Rate 84 /min Respiratory Rate 22 /min Height 62 inches 5'2" Weight 344.00 lb Pain Level 7-8 -8, Pain at this time. Pain Level With Medicine 7-8 -04/01, on average with meds Pain Level Without Medicine 10 06/01 without meds BMI (Body Mass Index) 62.9 kg/m2 09/14/2013 4:17pm BP Systolic 128 mmHg BP Diastolic 78 mmHg Heart Rate 80 /min Respiratory Rate 18 /min Height 62 inches 5'2" Weight 340.00 lb Pain Level 9 05/02, Pain at this time. Pain Level With Medicine 8 04/01, on average with meds Pain Level Without Medicine 10 06/01 without meds BMI (Body Mass Index) 62.2 kg/m2 08/28/2013 3:17pm BP Systolic 122 mmHg BP Diastolic 76 mmHg Heart Rate 72 /min Height 62 inches 5'2" Weight 340.00 lb Pain Level 9 10, Pain at this time. Pain Level Without Medicine 10 06/01 without meds BMI (Body Mass Index) 62.2 kg/m2 Results Description No Information Available Procedures Date Code Description Status 11/03/2018 91204 Therapeutic, Prophylactic Or Diagnostic Injection Subq/Im Completed 09/23/2018 43090 Therapeutic, Prophylactic Or Diagnostic Injection Subq/Im Completed 08/26/2018 11054 Therapeutic, Prophylactic Or Diagnostic Injection Subq/Im Completed 07/26/2018 94229 Therapeutic, Prophylactic Or Diagnostic Injection Subq/Im Completed 03/09/2018 61462 Therapeutic, Prophylactic Or Diagnostic Injection Subq/Im Completed 02/07/2018 63275 Therapeutic, Prophylactic Or Diagnostic Injection Subq/Im Completed 12/28/2017 76626 Therapeutic, Prophylactic Or Diagnostic Injection Subq/Im Completed 11/15/2017 34075 Therapeutic, Prophylactic Or Diagnostic Injection Subq/Im Completed 10/14/2017 82883 Therapeutic, Prophylactic Or Diagnostic Injection Subq/Im Completed 08/30/2017 19581 Therapeutic, Prophylactic Or Diagnostic Injection Subq/Im Completed 07/21/2017 44330 Therapeutic, Prophylactic Or Diagnostic Injection Subq/Im Completed 06/17/2017 [id number] Therapeutic, Prophylactic Or Diagnostic Injection Subq/Im Completed 05/11/2017 42117 Therapeutic, Prophylactic Or Diagnostic Injection Subq/Im Completed 04/12/2017 09662 Therapeutic, Prophylactic Or Diagnostic Injection Subq/Im Completed 03/09/2017 21081 Therapeutic, Prophylactic Or Diagnostic Injection Subq/Im Completed 01/06/2017 02221 Therapeutic, Prophylactic Or Diagnostic Injection Subq/Im Completed 10/23/2016 96075 Therapeutic, Prophylactic Or Diagnostic Injection Subq/Im Completed 09/24/2016 41536 Therapeutic, Prophylactic Or Diagnostic Injection Subq/Im Completed 08/26/2016 90368 Therapeutic, Prophylactic Or Diagnostic Injection Subq/Im Completed 08/26/2016 50248 Omt 1-2 Body Regions Completed 07/23/2016 95630 Therapeutic, Prophylactic Or Diagnostic Injection Subq/Im Completed 07/08/2016 27412 Therapeutic, Prophylactic Or Diagnostic Injection Subq/Im Completed 06/01/2016 20229 Therapeutic, Prophylactic Or Diagnostic Injection Subq/Im Completed 04/01/2016 26279 Therapeutic, Prophylactic Or Diagnostic Injection Subq/Im Completed 03/03/2016 23414 Therapeutic, Prophylactic Or Diagnostic Injection Subq/Im Completed 01/30/2016 91876 Therapeutic, Prophylactic Or Diagnostic Injection Subq/Im Completed 12/02/2015 [id number] Therapeutic, Prophylactic Or Diagnostic Injection Subq/Im Completed 12/02/2015 12112 Omt 1-2 Body Regions Completed 10/29/2015 99406 Therapeutic, Prophylactic Or Diagnostic Injection Subq/Im Completed 09/30/2015 92733 Therapeutic, Prophylactic Or Diagnostic Injection Subq/Im Completed 08/29/2015 38784 Therapeutic, Prophylactic Or Diagnostic Injection Subq/Im Completed 07/29/2015 12701 Therapeutic, Prophylactic Or Diagnostic Injection Subq/Im Completed 07/29/2015 16561 Test Autonomic Nervous System, Sudomotor Completed 06/27/2015 50617 Therapeutic, Prophylactic Or Diagnostic Injection Subq/Im Completed 05/28/2015 35225 Therapeutic, Prophylactic Or Diagnostic Injection Subq/Im Completed 12/26/2014 08983 Test Autonomic Nervous System, Sudomotor Completed Encounters Type Date Location Provider Dx Diagnosis Office Visit 11/03/2018 Main Office as Of Lebron Olson DO G89.29 Other chronic pain 2:15p 09/23/13 MPH M54.2 Cervicalgia M54.5 Low back pain M17.4 Other bilateral secondary osteoarthritis of knee 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 R53.83 Other fatigue Office Visit 09/23/2018 2:15p Main Office as Lebron Olson G89.29 Other chronic Of 09/23/13 DO, MPH pain M54.2 Cervicalgia M17.4 Other bilateral secondary osteoarthritis of knee M54.5 Low back pain Z79.891 retirement (current) use of opiate analgesic R53.83 Other fatigue Office Visit 08/26/2018 11:15a Main Office as Lebron Olson G89.29 Other chronic Of 09/23/13 DO, MPH pain M54.2 Cervicalgia M17.4 Other bilateral secondary osteoarthritis of knee M54.5 Low back pain R53.83 Other fatigue 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 Office Visit 07/26/2018 10:45a Main Office as Lebron Olson G89.29 Other chronic Of 09/23/13 DO, MPH pain M17.4 Other bilateral secondary osteoarthritis of knee M54.5 Low back pain Z79.891 retirement (current) use of opiate analgesic R53.83 Other fatigue Office Visit 06/21/2018 10:45a Main Office as Lebron Olson G89.29 Other chronic Of 09/23/13 DO, MPH pain M17.4 Other bilateral secondary osteoarthritis of knee M54.5 Low back pain Z79.891 retirement (current) use of opiate analgesic Office Visit 05/25/2018 10:30a Main Office as Lebron Olson, G89.29 Other chronic Of 09/23/13 DO, MPH pain M17.4 Other bilateral secondary osteoarthritis of knee M54.2 Cervicalgia M54.5 Low back pain 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 Office Visit 04/20/2018 2:15p Main Office as Lebron Olson G89.29 Other chronic Of 09/23/13 DO, MPH pain M17.4 Other bilateral secondary osteoarthritis of knee M54.2 Cervicalgia M54.5 Low back pain 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 Office Visit 03/09/2018 2:15p Main Office as Lebron Olson G89.29 Other chronic Of 09/23/13 DO, MPH pain M17.4 Other bilateral secondary osteoarthritis of knee M54.5 Low back pain M54.2 Cervicalgia R53.83 Other fatigue I89.0 Lymphedema, not elsewhere classified Z79.891 retirement (current) use of opiate analgesic Office Visit 02/07/2018 3:15p Main Office as Lebron Olson G89.29 Other chronic Of 09/23/13 DO, MPH pain M17.4 Other bilateral secondary osteoarthritis of knee M54.2 Cervicalgia M54.5 Low back pain R53.83 Other fatigue Z79.891 retirement (current) use of opiate analgesic Office Visit 12/28/2017 3:15p Main Office as Lebron Olson G89.29 Other chronic Of 09/23/13 DO, MPH pain M17.4 Other bilateral secondary osteoarthritis of knee M54.5 Low back pain M54.2 Cervicalgia R53.83 Other fatigue 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 Office Visit 11/15/2017 2:00p Main Office as Lebron Olson, G89.29 Other chronic Of 09/23/13 DO, MPH pain M54.5 Low back pain I89.0 Lymphedema, not elsewhere classified M17.4 Other bilateral secondary osteoarthritis of knee R53.83 Other fatigue Z79.891 retirement (current) use of opiate analgesic Office Visit 10/14/2017 10:15a Main Office as Lebron Olson, G89.29 Other chronic Of 09/23/13 DO, MPH pain M17.4 Other bilateral secondary osteoarthritis of knee I89.0 Lymphedema, not elsewhere classified M54.5 Low back pain 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 R53.83 Other fatigue Office Visit 08/30/2017 2:45p Main Office as Lebron Olson, G89.29 Other chronic Of 09/23/13 DO, MPH pain I89.0 Lymphedema, not elsewhere classified M17.4 Other bilateral secondary osteoarthritis of knee R53.83 Other fatigue M54.5 Low back pain 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 Office Visit 07/21/2017 10:30a Main Office as Lebron Olson, G89.29 Other chronic Of 09/23/13 DO, MPH pain I89.0 Lymphedema, not elsewhere classified M17.4 Other bilateral secondary osteoarthritis of knee M54.5 Low back pain R53.83 Other fatigue 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 Office Visit 06/17/2017 10:30a Main Office as Lebron Olson, G89.29 Other chronic Of 09/23/13 DO, MPH pain M54.5 Low back pain M17.4 Other bilateral secondary osteoarthritis of knee I89.0 Lymphedema, not elsewhere classified R53.83 Other fatigue Z79.891 retirement (current) use of opiate analgesic Office Visit 05/11/2017 3:00p Main Office as Lebron Olson, G89.29 Other chronic Of 09/23/13 DO, MPH pain M17.4 Other bilateral secondary osteoarthritis of knee M54.5 Low back pain I89.0 Lymphedema, not elsewhere classified R53.83 Other fatigue Z79.891 retirement (current) use of opiate analgesic Office Visit 04/12/2017 10:45a Main Office as Lebron Olson, G89.29 Other chronic Of 09/23/13 DO, MPH pain M17.4 Other bilateral secondary osteoarthritis of knee M54.5 Low back pain I89.0 Lymphedema, not elsewhere classified R53.83 Other fatigue Z79.891 retirement (current) use of opiate analgesic Office Visit 03/09/2017 11:15a Main Office as Lebron Olson, G89.29 Other chronic Of 09/23/13 DO, MPH pain M54.5 Low back pain M17.4 Other bilateral secondary osteoarthritis of knee I89.0 Lymphedema, not elsewhere classified R53.83 Other fatigue Z79.891 retirement (current) use of opiate analgesic Office Visit 02/03/2017 2:30p Main Office as Lebron Olson, G89.29 Other chronic Of 09/23/13 DO, MPH pain I89.0 Lymphedema, not elsewhere classified M54.5 Low back pain M17.4 Other bilateral secondary osteoarthritis of knee 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 Office Visit 01/06/2017 2:15p Main Office as Lebron Olson, G89.29 Other chronic Of 09/23/13 DO, MPH pain I89.0 Lymphedema, not elsewhere classified M54.5 Low back pain M17.4 Other bilateral secondary osteoarthritis of knee R53.83 Other fatigue Z79.891 retirement (current) use of opiate analgesic Office Visit 11/27/2016 11:15a Main Office as Lebron Olson, G89.29 Other chronic Of 09/23/13 DO, MPH pain M54.5 Low back pain I89.0 Lymphedema, not elsewhere classified M17.4 Other bilateral secondary osteoarthritis of knee 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 Office Visit 10/23/2016 11:30a Main Office as Lebron Olson, G89.29 Other chronic Of 09/23/13 DO, MPH pain M54.5 Low back pain I89.0 Lymphedema, not elsewhere classified M17.4 Other bilateral secondary osteoarthritis of knee R53.83 Other fatigue I10 Essential (primary) hypertension E78.2 Mixed hyperlipidemia I27.82 Chronic pulmonary embolism 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 Office Visit 09/24/2016 2:30p Main Office as Lebron Olson, G89.29 Other chronic Of 09/23/13 DO, MPH pain M54.5 Low back pain I89.0 Lymphedema, not elsewhere classified M17.4 Other bilateral secondary osteoarthritis of knee R53.83 Other fatigue E78.2 Mixed hyperlipidemia I10 Essential (primary) hypertension K59.09 Other constipation I27.82 Chronic pulmonary embolism Z79.891 retirement (current) use of opiate analgesic Office Visit 08/26/2016 3:00p Main Office as OlsonOlu henryph, G89.29 Other chronic Of 09/23/13 DO, MPH pain M54.5 Low back pain I89.0 Lymphedema, not elsewhere classified M99.06 Segmental and somatic dysfunction of lower extremity M17.4 Other bilateral secondary osteoarthritis of knee R53.83 Other fatigue Office Visit 07/23/2016 11:30a Main Office as OlsonLebron edmondson, G89.29 Other chronic Of 09/23/13 DO, MPH pain M54.5 Low back pain I89.0 Lymphedema, not elsewhere classified M17.4 Other bilateral secondary osteoarthritis of knee R53.83 Other fatigue Office Visit 07/08/2016 11:00a Main Office as OlsonOlu edmondsonph, G89.29 Other chronic Of 09/23/13 DO, MPH pain M54.5 Low back pain I89.0 Lymphedema, not elsewhere classified M17.4 Other bilateral secondary osteoarthritis of knee R53.83 Other fatigue 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 Office Visit 06/01/2016 11:00a Main Office as OlsonOlu edmondsonph, G89.29 Other chronic Of 09/23/13 DO, MPH pain M54.5 Low back pain I89.0 Lymphedema, not elsewhere classified M17.4 Other bilateral secondary osteoarthritis of knee M54.2 Cervicalgia R53.83 Other fatigue 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 Office Visit 05/01/2016 11:15a Main Office as OlsonOlu edmondsonph, G89.29 Other chronic Of 09/23/13 DO, MPH pain M54.5 Low back pain I89.0 Lymphedema, not elsewhere classified M17.4 Other bilateral secondary osteoarthritis of knee M54.2 Cervicalgia Office Visit 04/01/2016 10:15a Main Office as OlsonOlu edmondsonph, G89.29 Other chronic Of 09/23/13 DO, MPH pain M54.5 Low back pain I89.0 Lymphedema, not elsewhere classified M17.4 Other bilateral secondary osteoarthritis of knee R53.83 Other fatigue Z79.891 retirement (current) use of opiate analgesic Office Visit 03/03/2016 10:00a Main Office as Lebron Olson, G89.29 Other chronic Of 09/23/13 DO, MPH pain M54.5 Low back pain M17.4 Other bilateral secondary osteoarthritis of knee I89.0 Lymphedema, not elsewhere classified R53.83 Other fatigue 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 Office Visit 01/30/2016 10:45a Main Office as Lebron Olson, G89.29 Other chronic Of 09/23/13 DO, MPH pain M54.5 Low back pain M17.4 Other bilateral secondary osteoarthritis of knee I89.0 Lymphedema, not elsewhere classified R53.83 Other fatigue 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 Office Visit 12/31/2015 10:15a Main Office as Lebron Olson G89.29 Other chronic Of 09/23/13 DO, MPH pain M54.5 Low back pain M17.4 Other bilateral secondary osteoarthritis of knee I89.0 Lymphedema, not elsewhere classified 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 Office Visit 12/02/2015 10:30a Main Office as Lebron Olson, G89.29 Other chronic Of 09/23/13 DO, MPH pain M54.5 Low back pain M17.4 Other bilateral secondary osteoarthritis of knee I89.0 Lymphedema, not elsewhere classified R53.83 Other fatigue M54.2 Cervicalgia M99.01 Segmental and somatic dysfunction of cervical region Z79.891 retirement (current) use of opiate analgesic Office Visit 10/29/2015 11:00a Main Office as Lebron Olson Z79.891 [employer] Of 09/23/13 DO, MPH (current) use of opiate analgesic G89.29 Other chronic pain M54.5 Low back pain M17.4 Other bilateral secondary osteoarthritis of knee I89.0 Lymphedema, not elsewhere classified R53.83 Other fatigue 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 Office Visit 09/30/2015 11:15a Main Office as Lebron Olson, G89.29 Other chronic Of 09/23/13 DO, MPH pain M54.5 Low back pain M17.4 Other bilateral secondary osteoarthritis of knee I89.0 Lymphedema, not elsewhere classified R53.83 Other fatigue Office Visit 08/29/2015 11:00a Main Office as Lebron Olson, G89.29 Other chronic Of 09/23/13 DO, MPH pain M54.5 Low back pain M17.4 Other bilateral secondary osteoarthritis of knee I89.0 Lymphedema, not elsewhere classified R53.83 Other fatigue G90.3 Multi-system degeneration of the autonomic nervous system Office Visit 07/29/2015 11:00a Main Office as Lebron Olson, G89.29 Other chronic Of 09/23/13 DO, MPH pain M54.5 Low back pain M17.11 Unilateral primary osteoarthritis, right knee M17.12 Unilateral primary osteoarthritis, left knee R53.83 Other fatigue I89.0 Lymphedema, not elsewhere classified G90.3 Multi-system degeneration of the autonomic nervous system Office Visit 06/27/2015 11:00a Main Office as Lebron Olson, Z79.891 [employer] Of 09/23/13 DO, MPH (current) use of opiate analgesic G89.29 Other chronic pain M54.5 Low back pain Z79.891 retirement (current) use of opiate analgesic R53.83 Other fatigue Office Visit 05/28/2015 11:00a Main Office as Lebron Olson, G89.29 Other chronic Of 09/23/13 DO, MPH pain M54.5 Low back pain R53.83 Other fatigue M17.11 Unilateral primary osteoarthritis, right knee M17.12 Unilateral primary osteoarthritis, left knee Office Visit 04/25/2015 11:15a Main Office as Lebron Olson, 338.29 Other Chronic Of 09/23/13 DO, MPH Pain 724.2 Lumbago 719.46 Pain Joint Knee 715.16 Osteoarthrosis Localized Prim Lower Leg Office Visit 03/27/2015 11:00a Main Office as Lebron Olson, V58.69 Medications Long Of 09/23/13 DO, MPH Term (Current) Use Encounter 338.29 Other Chronic Pain 724.2 Lumbago 719.46 Pain Joint Knee 715.16 Osteoarthrosis Localized Prim Lower Leg V58.69 Medications Director Utilization Management (Current) Use Encounter Office Visit 02/25/2015 2:30p Main Office as Lebron Olson, 338.29 Other Chronic Of 09/23/13 DO, MPH Pain 724.2 Lumbago 719.46 Pain Joint Knee 715.16 Osteoarthrosis Localized Prim Lower Leg Office Visit 01/23/2015 2:15p Main Office as Lebron Olson, 338.29 Other Chronic Of 09/23/13 DO, MPH Pain 724.2 Lumbago 719.46 Pain Joint Knee 715.16 Osteoarthrosis Localized Prim Lower Leg Office Visit 12/26/2014 2:30p Main Office as Lebron Olson, 338.29 Other Chronic Of 09/23/13 DO, MPH Pain 724.2 Lumbago 719.46 Pain Joint Knee 715.16 Osteoarthrosis Localized Prim Lower Leg 337.9 Autonomic Nervous System Disorder Unspec Office Visit 11/26/2014 2:15p Main Office as Lebron Olson, 338.29 Other Chronic Of 09/23/13 DO, MPH Pain 724.2 Lumbago 719.46 Pain Joint Knee Office Visit 10/25/2014 2:15p Main Office Lebron Olson, 715.16 Osteoarthrosis as Of 09/23/13 DO, MPH Localized Prim Lower Leg 338.29 Other Chronic Pain 724.2 Lumbago 719.46 Pain Joint Knee V58.69 Medications Skilled Nursing (Current) Use Encounter Office Visit 09/26/2014 2:00p Main Office Lebron Olson, 715.16 Osteoarthrosis as Of 09/23/13 DO, MPH Localized Prim Lower Leg 338.29 Other Chronic Pain 724.2 Lumbago 719.46 Pain Joint Knee Office Visit 08/27/2014 2:45p Main Office as Lebron Olson, 338.29 Other Chronic Of 09/23/13 DO, MPH Pain 724.2 Lumbago 719.46 Pain Joint Knee 715.16 Osteoarthrosis Localized Prim Lower Leg 564.00 Constipation Unspecified Office Visit 07/23/2014 2:15p Main Office as Lebron Olson, 338.29 Other Chronic Of 09/23/13 DO, MPH Pain 724.2 Lumbago 719.46 Pain Joint Knee 715.16 Osteoarthrosis Localized Prim Lower Leg V58.69 Medications Director Utilization Management (Current) Use Encounter Office Visit 06/25/2014 2:45p Main Office as OlsonOlu edmondsonph, 338.29 Other Chronic Of 09/23/13 DO, MPH Pain 724.2 Lumbago 719.46 Pain Joint Knee 715.16 Osteoarthrosis Localized Prim Lower Leg Office Visit 05/25/2014 11:00a Main Office as OlsonOlu edmondsonph, 338.29 Other Chronic Of 09/23/13 DO, MPH Pain 724.2 Lumbago 719.46 Pain Joint Knee 715.16 Osteoarthrosis Localized Prim Lower Leg 780.59 Sleep Disturbances Other 415.19 Pulmonary Embolism And Infarction Other 564.00 Constipation Unspecified Office Visit 04/20/2014 11:00a Main Office as OlsonOlu edmondsonph, 338.29 Other Chronic Of 09/23/13 DO, MPH Pain 719.46 Pain Joint Knee 724.2 Lumbago 715.16 Osteoarthrosis Localized Prim Lower Leg 564.00 Constipation Unspecified Office Visit 03/20/2014 3:00p Main Office as OlsonOlu edmondsonph, 338.29 Other Chronic Of 09/23/13 DO, MPH Pain 719.46 Pain Joint Knee 724.2 Lumbago 715.16 Osteoarthrosis Localized Prim Lower Leg V58.69 Medications Director Utilization Management (Current) Use Encounter Office Visit 02/19/2014 3:00p Main Office as OlsonOlu edmondsonph, 338.29 Other Chronic Of 09/23/13 DO, MPH Pain 719.46 Pain Joint Knee 724.2 Lumbago 715.16 Osteoarthrosis Localized Prim Lower Leg Office Visit 01/18/2014 3:00p Main Office as OlsonOlu edmondsonph, 338.29 Other Chronic Of 09/23/13 DO, MPH Pain 719.46 Pain Joint Knee 724.2 Lumbago Office Visit 12/20/2013 4:00p Main Office as OlsonOlu edmondsonph, 338.29 Other Chronic Of 09/23/13 DO, MPH Pain 719.46 Pain Joint Knee 715.16 Osteoarthrosis Localized Prim Lower Leg 724.2 Lumbago Office Visit 11/22/2013 4:15p Main Office as Lebron Olson, 338.29 Other Chronic Of 09/23/13 , MPH Pain 719.46 Pain Joint Knee 715.16 Osteoarthrosis Localized Prim Lower Leg 724.2 Lumbago Office Visit 10/31/2013 3:45p Main Office as OlsonLebron edmondson, 338.29 Other Chronic Of 09/23/13 DO, MPH Pain 719.46 Pain Joint Knee 715.16 Osteoarthrosis Localized Prim Lower Leg 724.2 Lumbago 780.59 Sleep Disturbances Other Office Visit 10/10/2013 4:15p Main Office as OlsonLebron edmondson, 338.29 Other Chronic Of 09/23/13 DO, MPH Pain 719.46 Pain Joint Knee 715.16 Osteoarthrosis Localized Prim Lower Leg 724.2 Lumbago Office Visit 09/26/2013 4:15p Main Office as Lebron Olson, 338.29 Other Chronic Of 09/23/13 , MPH Pain 719.46 Pain Joint Knee 715.16 Osteoarthrosis Localized Prim Lower Leg 724.2 Lumbago Office Visit 09/14/2013 4:30p Main Office as Lebron Olson, 338.29 Other Chronic Of 09/23/13 DO, MPH Pain 719.46 Pain Joint Knee Office Visit 08/28/2013 2:00p Main Office as Lebron Olson, 719.46 Pain Joint Knee Of 09/23/13 , MPH 724.2 Lumbago 715.16 Osteoarthrosis Localized Prim Lower Leg Plan of Treatment Future Appointment(s):01/04/2019 2:45 pm - Lebron Olson DO, MPH at Main Office as Of 09/23/1403 - Lebron Olson DO, MPHG89.29 Other chronic painComments:Chronic. Symptoms and complaints discussed and reviewed today. No significant changes in physical findings. Continue current medical pain management.M17.4 Other bilateral secondary osteoarthritis of kneeComments: Chronic. Symptoms and complaints discussed and reviewed today. No significant changes in physical findings. Continue current medical pain management.M54.2 CervicalgiaComments:Chronic. Symptoms and complaints discussed and reviewed today. No significant changes in physical findings. Continue current medical pain management.M54.5 Low back painComments:Chronic. Symptoms and complaints discussed and reviewed today.No changes in physical findings. Patient is stable and comfortable when current medical therapy is rendered.Z79.891 retirement ( current) use of opiate analgesicNew Labs:Urine Drug Screen, Ordered: Comments:Urine drug screen sample taken today to monitor opiate use and to monitor use of illicit substances.Will discuss results at next appointment.The following tests were ordered:6 AM, AMPH, DEB, DAISHA, BUP, CARIS, COCM, COT, ETG , FENT, MCSHSG, OPI, OXY, PCP, TAPEN, XTSY, ZOLP. A urine drug test (UDT ) was ordered for this patient and collected on site today. Creatinine has been ordered as well for specimen validity, not for kidney function. Preliminary UDT results are not final and should not be used to determine patient care or plan of treatment. Initially a qualitative immunoassay screen will be done. Any inconsistent or positive findings will be further tested with a more comprehensive quantitative confirmation LCMS study. It is part of the treatment process of prescribing controlled substances and is considered standard of care.R53.83 Other fatigueComments:Symptoms and complaints discussed and reviewed today. No significant changes in physical findings. Continue current medical pain management. B12 injection administered after patient evaluated. 1ml IM for fatigue. (See Consent for injection-B12 document for lot number and expiration date.)AllComments:All above symptoms and complaints discussed as well as diagnoses reviewed.Continue trial of opioid pain management - note changes below; injection therapy, osteopathic manipulation ( OMT), PT / modalities, and consults as needed to manage chronic pain.Side effects discussed; anticipatory guidance given. Patient clearly understands and agrees with all medical treatments and suggestions. All medicines prescribed are adequate and appropriate for this patient's complaint of pain, medical history, physical, and personal goals.Goals of Treatment are to provide adequate and appropriate multidisciplinary medical pain management to increase/ maintain patient's quality of life and functionality while maintaining satisfactory side effect profile and minimizing [facility] end-organ damage. Activity as toleratedContinue with PCP
[2018-12-24 12:44] LABS: Hematocrit 40 % (35-47); Hemoglobin 12.9 g/dL (12.0-16.0); Mean Corpuscular HGB Conc 33 g/dL (31-36); Mean Corpuscular Hemoglobin 28 pg (27-31); Mean Corpuscular Volume 85 fL (80-97); Mean Platelet Volume 6.7 fL (7.4-10.4); Platelet Count 412 10^3/uL (150-450); Red Blood Count 4.65 10^6 /uL (3.70-4.87); Red Cell Distribution Width 15 % (10.5-15); White Blood Count 21.4 10^3/uL (3.5-10.8)
--- NOTE | 2018-12-24 13:00 | ED ---
Skin Complaint - HPI Summary HPI Summary: Pt. is a 73 y.o female who presents to the ER for abscess to left buttocks x 1 week. Pt. states she notes pain to left buttocks last week. She was PCP and was placed on cefuroxime 6 days ago. Daughter who is present states redness and swelling has progressively became larger this week. Pt. also notes fever and chills. Past medical hx of obesity, HTN, HDL. Symptoms are moderate in severity. Touching affecting area makes sxs worse. Nothing makes sxs better. - History of Current Complaint Chief Complaint: EDRashSkinAbscess Time Seen by Provider: 12/24/18 11:30 Stated Complaint: ABCESS PER PT Hx Obtained From: Patient, Family/Rehab Department Manager Pain Intensity: 10 - Additional Pertinent History Primary Care Physician: LUCY - Allergy/Home Medications Allergies/Adverse Reactions: Allergies Allergy/AdvReac Type Severity Reaction Status Date / Time clindamycin Allergy Nausea Verified 12/24/18 11:39 crab Allergy Hives Uncoded 12/24/18 11:18 Home Medications: Home Medications Acetaminophen TAB* [Tylenol TAB*] 975 mg PO TID PRN 12/24/18 [History Confirmed 12/24/18] Irbesartan (NF) [Avapro (NF)] 150 mg PO DAILY 12/24/18 [History Confirmed ] Losartan TAB* [Cozaar TAB*] 50 mg PO DAILY 12/24/18 [History Confirmed 12/24/18] ceFUROXime TAB(*) [Ceftin TAB 250 MG(*)] 500 mg PO BID 12/24/18 [History Confirmed 12/24/18] PMH/Surg Hx/FS Hx/Imm Hx Previously Healthy: Yes Endocrine/Hematology History: Reports: 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 Denies: Hx Diabetes Cardiovascular History: Reports: Hx Hypercholesterolemia - HYPERLIPIDEMIA, Hx Hypertension Respiratory History: Reports: Hx Pulmonary Embolism History: Musculoskeletal History: Reports: Hx Arthritis - BL KNEES, Other Musculoskeletal History - knee pain bilat Comment Only: Hx Rheumatoid Arthritis - arthritis ? 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 Negative: Abdominal Pain, Vomiting Positive: Other - swelling and redness to left buttocks. Neurological: Negative All Other Systems Reviewed And Are Negative: Yes Physical Exam Triage Information Reviewed: Yes Vital Signs On Initial Exam: Initial Vitals Temp Pulse Resp BP Pulse Ox 98.0 F 86 18 122/82 95 12/24/18 11:15 12/24/18 11:15 12/24/18 11:15 12/24/18 11:15 12/24/18 11:15 Vital Signs Reviewed: Yes Appearance: Positive: Well-Appearing - Pt. sitting up in bed in NAD. Morbidly obese. Daughter present. Skin: Positive: Warm, Dry, Other - Extensive erythema and induration noted to left lower buttocks. Cannot fully evaluate secondary to pt.'s body habitus. Head/Face: Positive: Normal Head/Face Inspection Eyes: Positive: Normal, EOMI Neck: Positive: Supple Cardiovascular: Positive: Normal, RRR Abdomen Description: Positive: Nontender, Soft Musculoskeletal: Positive: Normal, Strength/ROM Intact Neurological: Positive: Normal, CN Intact II-III Psychiatric: Positive: Affect/Mood Appropriate Diagnostics - Vital Signs Vital Signs Temp Pulse Resp BP Pulse Ox 12/24/18 12:04 96 114/61 95 12/24/18 12:00 93 95 12/24/18 11:34 98 102/69 99 12/24/18 11:15 98.0 F 86 18 122/82 95 - Laboratory Lab Results: Lab Results 12/24/18 Range/Units 12:33 WBC 21.4 H (3.5-10.8) 10^3/uL RBC 4.65 (3.70-4.87) 10^6 /uL Hgb 12.9 (12.0-16.0) g/dL Hct 40 (35-47) % MCV 85 (80-97) fL MCH 28 (27-31) pg MCHC 33 (31-36) g/dL RDW 15 (10.5-15) % Plt Count 412 (150-450) 10^3/uL MPV 6.7 L (7.4-10.4) fL Neut % (Auto) Pending Lymph % (Auto) Pending [place] % (Auto) Pending Eos % (Auto) Pending Baso % (Auto) Pending Absolute Neuts (auto) Pending Absolute Lymphs (auto) Pending Absolute Monos (auto) Pending Absolute Eos (auto) Pending Absolute Basos (auto) Pending Absolute Nucleated RBC Pending Nucleated RBC % Pending Result Diagrams: 12/24/18 12:33 12/24/18 12:33 Lab Statement: Any lab studies that have been ordered have been reviewed, and results considered in the medical decision making process. Course/Dx - Course Course Of Treatment: Pt. presenting with cellulitis and likely abscess to left buttocks. Will obtain CT scan for further evaluation of extension of infection. Pt. afebrile with stable VS. Labs and IV access were delayed due to multiple failed attempts. CT abd./pelvis per radiology: IMPRESSION: 1. FINDINGS MOST CONSISTENT WITH A LARGE ABSCESS LOCATED IN THE LEFT MEDIAL INFERIOR. GLUTEAL REGION. 2. HEPATIC STEATOSIS. 3. STATUS POST CHOLECYSTECTOMY. 4. EXTRAVASATION OF INTRAVENOUS CONTRAST. 1420: Peripheral line blew during CT scan. Dr. Pandey recommends surgical consult for central line placement given body habitus. I spoke with Dr. Mcneil who agrees to place line and consult on pt. for abscess. I spoke with hospitalist, Dr. Bhatti, and she has accepted pt. to her service. - Differential Diagnoses - Skin Complaint Differential Diagnoses: Abscess, Cellulitis - Diagnoses Provider Diagnoses: Abscess, Leukocytosis Discharge - Sign-Out/Discharge Documenting (check all that apply): Patient Departure Patient Received Moderate/Deep Sedation with Procedure: No - Discharge Plan Condition: Stable Disposition: ADMITTED TO [facility] - Billing Disposition and Condition Condition: STABLE Disposition: Admitted to [facility]
[2018-12-24 13:01] LABS: Albumin 3.2 g/dL (3.2-5.2); Albumin/Globulin Ratio 0.8 (1-3); BUN/Creatinine Ratio 17.9 (8-20); C Reactive Protein 244.32 mg/L (<8.01); Calcium 9.2 mg/dL (8.6-10.3); EGFR African American 80.6 (>60); EGFR Non-African American 66.6 (>60); Potassium 4.6 mmol/L (3.5-5.0); Total Bilirubin 0.5 mg/dL (0.2-1.0); Total Protein 7.2 g/dL (6.4-8.9)
[2018-12-24 13:08] LABS: ABS Eosinophils 0.1 10^3/ul (0-0.6); ABS Lymphocytes 0.8 10^3/ul (1.0-4.8); ABS Monocytes 1.4 10^3/ul (0-0.8); ABS Neutrophils 19.1 10^3/ul (1.5-7.7); Eosinophil % 0.3 %; Lymphocyte % 3.6 %
[2018-12-24] MEDS ORDERED: Iohexol 300* (CONTRAST) 10 ML SDV IV ONE (14:01)
[2018-12-24] MEDS ORDERED: Acetaminophen TAB* 325 MG PO PRN (15:13)
[2018-12-24] MEDS ORDERED: Ondansetron INJ* 2 MG/ML VIAL IV PRN (15:13)
[2018-12-24] MEDS ORDERED: Ibuprofen TAB* 600 MG PO PRN (15:15)
[2018-12-24] MEDS ORDERED: Polyethylene Glycol 3350* 17 GM PACKET PO PRN (15:15)
[2018-12-24] MEDS ORDERED: Bisacodyl SUPP* 10 MG SUPP PR PRN (15:15)
[2018-12-24] MEDS: Vancomycin(*) 2,000 MG in NS 0.9% 500 ML* 500 ML IVPB ONE ×2 (15:26→18:19)
[2018-12-24] MEDS: Morphine 4 MG/ML VIAL (1 ml) 4 MG/ML VIAL IV ONE ×2 (15:26→16:06)
[2018-12-24] MEDS: NS 0.9% 1000 ML** 1,000 ML IV ONE ×2 (15:26→16:06)
[2018-12-24] MEDS: ED Piperacillin/Tazobac 3.375 3.375 GM/100 ML PREMIX.SET IVPB ONE ×2 (15:26→16:07)
[2018-12-24] MEDS ORDERED: Vancomycin per Pharmacy* NOTE FOLLOW UP SCH (16:00)
[2018-12-24] MEDS ORDERED: Piperacillin/Tazobac (*) 3.375 GM BAG ONE (16:07)
[2018-12-24 16:38] LABS: INR 6.83 (0.82-1.09)
[2018-12-24] MEDS ORDERED: Phytonadione IV (Adult)* 10 MG/ML 1 ML AMP IV ONE ×3 (16:46→22:47)
--- NOTE | 2018-12-24 16:54 | HP ---
CC: Dr. Saenz; Dr. Mark Mcneil * ADMISSION HISTORY AND PHYSICAL: DATE OF ADMISSION: 12/24/18 PRIMARY CARE PROVIDER: Dr. Saenz. MY ATTENDING WHILE IN THE HOSPITAL: Dr. Ruma Bhatti.* (DICTATED BY DERECK BOWSER) CONSULTING SURGEON: Dr. Mark Mcneil. CHIEF COMPLAINT: Perineal pain x6 days. HISTORY OF PRESENT ILLNESS: Ms. Tipton is a 73-year-old female with a past medical history significant for morbid obesity, history of pulmonary embolism x2 , hypertension, hyperlipidemia and arthritis, who presents to the emergency department after approximately 1 week ago on 12/18/18, she felt some irritation in her perineal area and felt like it was a small open area in her skin, was treating it with sitz baths; however, the pain began to increase over several days. The patient had intermittent low-grade fevers. The patient had no diarrhea, no abdominal pain. The patient went to her primary care provider on 12/21/18 and was told that she had a large cyst, was started on cefuroxime, but then had no improvement in her pain, which began getting worse interfering with activities of daily living and her bowel movements. The patient began to have worsening fevers, worsening chills, worsening pain. The patient continued to deny abdominal pain, chest pain, shortness of breath. The patient has intermittent wheezing, but no hypoxia. The patient has shortness of breath on exertion, but attributes this to her pain. The patient denies any history of infections like this. No recent sick contacts. No recent changes in her medications. The patient denies recent hospitalizations. The patient's pain became out of control in conjunction with the patient's fevers. She presented to the emergency room and was found to have a leukocytosis, severely elevated CRP, and a CT scan of the abdomen and pelvis revealed a large 13 cm x 10 cm x 8 cm abscess with air to the left gluteal fold. Due to concern for large abscess, we were asked to evaluate the patient for admission to the hospital. PAST MEDICAL HISTORY: History of pulmonary embolism x2, hypertension, hyperlipidemia, osteoarthritis. PAST SURGICAL HISTORY: Cholecystectomy, tonsillectomy, hysterectomy, and abdominal tumor removal in 2004. MEDICATIONS: 1. Simvastatin 20 mg p.o. daily. 2. Damion-D 600 two tabs p.o. b.i.d. 3. OxyContin 20 mg p.o. b.i.d. 4. Oxycodone 10 mg p.o. q.4 hours as needed. 5. Polyethylene glycol 17 g p.o. daily. 6. Aspirin 81 mg p.o. daily. 7. [place]-3 fatty acids 1 cap p.o. b.i.d. 8. Garlic 1000 mg p.o. daily. 9. Warfarin 2 mg p.o. daily. 10. Furosemide 40 mg p.o. daily. 11. Ibuprofen 600 mg p.o. q.6 hours as needed. 12. Ceftin 500 mg p.o. b.i.d. 13. Irbesartan 150 mg p.o. daily. 14. Tylenol 975 mg p.o. t.i.d. as needed. ALLERGIES: CLINDAMYCIN and CRAB. FAMILY HISTORY: The patient's father of old age. The patient's mother of bone cancer. The patient's brother of CHF and had diabetes and cirrhosis. The patient has a sister and brother, who are alive and healthy. SOCIAL HISTORY: The patient smoked from the ages of 19 to 29. The patient denies illicit drug use. The patient denies alcohol abuse. The patient used to work at the [employer] in [place] in [employer] [facility] [place]. The patient is and . The patient has 2 children. The patient's surrogate decision maker will be her daughter, Lucía Gunn. REVIEW OF SYSTEMS: A 14-point review of systems was reviewed and is negative except as above in the HPI. PHYSICAL EXAMINATION GENERAL: The patient is a 73-year-old female, who appears stated age and sitting comfortably in bed, in no acute distress. VITAL SIGNS: Temperature 98.0, pulse rate 93, respiratory rate 20, oxygen saturation 95% on room air, blood pressure 150/62. HEENT: Head: Normocephalic, atraumatic. Sclerae anicteric. No conjunctival injection. Nasal mucosa moist. Oral mucosa moist. No pharyngeal erythema, discharge, or exudate. NECK: Supple, nontender. No lymphadenopathy. No carotid bruits auscultated. No JVD. RESPIRATORY: Clear to auscultation bilaterally. No wheezes, rales, or rhonchi. Good air exchange bilaterally. CARDIAC: Regular rate and rhythm. No clicks, murmurs, gallops, or rubs. Pulses are 2+ in the bilateral dorsalis pedis, posterior tibialis, and radial areas. ABDOMEN: Soft, nontender, nondistended. Bowel sounds present and normoactive in all 4 quadrants. No hepatosplenomegaly. No abdominal bruits auscultated. No hepatojugular reflux. GENITOURINARY: No suprapubic or CVA tenderness. NEURO: Cranial nerves II through XII intact. No focal deficits. Alert and oriented x3. PSYCHIATRIC: Pleasant and cooperative. SKIN: Large area of erythema with induration and swelling in the left gluteal fold with induration and no open area or purulent drainage. DIAGNOSTIC STUDIES/LAB DATA: White blood cell count 21.4, hemoglobin 12.9, platelet count 412. Sodium 132, potassium 4.6, chloride 96, carbon dioxide 29, anion gap 7, BUN 15, creatinine 0.84, glucose 147, lactic acid 0.6, calcium 9.2. Bilirubin 0.5, AST 25, ALT 22, alkaline phosphatase 91. CRP 244.32. Protein 7.2, albumin 3.2, globulin 4.0. Studies: Abdomen and pelvis CT read as findings most consistent with large abscess located in the left medial inferior gluteal region, hepatic steatosis, status post cholecystectomy, extravasation of intravenous contrast. ASSESSMENT AND PLAN: Impression: Ms. Tipton is a 73-year-old female with past medical history significant for pulmonary embolism x2, hypertension, hyperlipidemia, morbid obesity, who presents to the emergency department with 1 week of worsening swelling, pain and induration in her gluteal region. The patient was found to have a large abscess and will be admitted to the hospital for IV antibiotics and surgical drainage. 1. Gluteal abscess. The patient's abscess measures at 13 cm in its largest dimension. The patient was given Zosyn in the emergency department. The patient failed outpatient cefuroxime therapy. The patient has blood cultures pending. The patient will have wound cultures pending. The patient will be seen in consultation by Dr. Mark Mcneil of Surgery, who will evaluate the patient for incision and drainage in the OR. The patient will be placed on broad-spectrum antibiotics at this time including methicillin-resistant Staphylococcus aureus and anaerobic coverage given the location of the abscess and the failure of outpatient antibiotics. The patient has an elevated white blood cell count. The patient had fevers at home, but none reported in the emergency department. The patient's pulse rate is now consistently above 90. The patient is not hypotensive. The patient has severely elevated CRP. The patient has no intravenous access at this time and has not been able to be given any antibiotics while in the emergency department. The patient will have central line placed for blood draws and IV antibiotics. The patient does not require fluids at this time. 2. Pulmonary embolism x2. The patient had no INR drawn in the emergency department. We will check an INR at this time given the patient's need for incision and drainage. 3. Hypertension. The patient is currently normotensive. Continue the patient' s home irbesartan. Hold the patient's home furosemide at this time. 4. Hyperlipidemia. Continue the patient's home simvastatin. 5. Chronic pain. The patient has both acute and chronic pain. Continue the patient's home dosing of OxyContin, home oxycodone and the patient will have morphine IV for breakthrough pain. This should be tapered as the patient's pain associated with abscess decreases. 6. DVT prophylaxis: The patient is on Coumadin. INR is pending. 7. FEN: The patient will be n.p.o. at this time. The patient will have a heart- healthy diet, caffeine okay after her surgical procedure. TIME SPENT: Approximately 60 minutes was spent on the admission of this patient , 30 of which was spent [id number] with the patient obtaining history and physical and discussing treatment plan. This plan was discussed with my attending, Dr. Ruma Bhatti, and she is in agreement. ADDENDUM: Was called later in the day for what was believed to be bloody drainage from abscess. Rectal exam revealed this was from the rectum. Discussion with Dr. Rubin Hyde of Gastroenterology recommended reversal of INR and monitoring of H/H with no further intervention at this time. 10mg Vitamin K and 2u FFP given. H/H Q8H ordered. DERECK BOWSER [id number]/[facility] #: [id number] SAVANNAH
[2018-12-24] MEDS ORDERED: Warfarin TAB(*) 2 MG PO SCH (17:00)
[2018-12-24] MEDS: Morphine INJ* 2 MG/ML 1 ML SYRINGE (TWO MG - NEW SYRINGE VERSION) IV PRN ×2 (17:20→20:00)
[2018-12-24] MEDS: oxyCODONE TAB* 5 MG TAB PO PRN (17:20)
[2018-12-24] MEDS: Acetaminophen TAB* 325 MG PO PRN (17:30)
[2018-12-24] MEDS: NS 0.9% 1000 ML** 1,000 ML IV SCH (17:32)
[2018-12-24] MEDS: metroNIDAZOLE IV 500 MG/100ML* 500 MG/100 ML BAG IVPB SCH (17:33)
--- NOTE | 2018-12-24 17:43 | CONS ---
AMENDED REPORT NOW INCLUDES DATE OF CONSULT - ESIGNED BEFORE ADJUSTMENTS CC: [facility]; Dr. Saenz * SURGICAL CONSULTATION REPORT AND PROCEDURE NOTE: DATE OF CONSULT: 12/24/18 - ROOM #413 HISTORY OF PRESENT ILLNESS: I was contacted by the hospitalist service to evaluate Ms. Erika Tipton, a 73-year-old super, super, super morbidly obese patient who presents to the emergency room with complaints of left-sided perianal and buttock pain for close to 4 days. The patient has been non- eating. Her workup included labs, which showed a white count of 21. She was seen in the ER and she was diagnosed with a perianal abscess, buttock abscess on the left. The patient had an IV placed and it failed. Additional attempts were unsuccessful and the patient was in need of antibiotics and they consulted Surgery for placement of a central line. PAST MEDICAL HISTORY: Reviewed and includes obesity, history of pulmonary embolus, hypertension, hypercholesterolemia, joint pain. PAST SURGICAL HISTORY: Open cholecystectomy, hysterectomy. MEDICATIONS: List is reviewed and includes Coumadin, INR is not resulted. SOCIAL HISTORY: The patient is ambulatory. Lives in a home, taking care of herself, she has got family. REVIEW OF SYSTEMS: Decreased appetite, shortness of breath. No chest pain. Severe buttock pain. No abdominal pain. PHYSICAL EXAM: The patient is well appearing, morbidly obese and comfortable on the stretcher. Focused exam of the perianal area reveals swelling right up to the labia with fluctuance and tender with redness. IMPRESSION: Systemic inflammatory response syndrome in a patient with perirectal abscess that has not spontaneously drained who has no IV access. This was placed by me now with utilizing a central line at the right groin. PROCEDURE NOTE: After obtaining informed consent, the right groin was prepped and draped in a standard surgical fashion. A time-out was performed. An injection of lidocaine along the proposed site was done and a right common femoral vein was accessed on the first attempt, wire inserted with ease and a 20 cm triple-lumen catheter inserted without difficulty. All ports were flushed after aspiration of blood and it was sutured to the skin followed by sterile dressing. The patient tolerated the procedure well. INR is still pending. We will wait for this. The patient will get antibiotics. She will remain n.p.o. with pain control and IV fluids and we will take her to the operation room tomorrow for incision and drainage of the perirectal abscess. I described the procedure of perirectal abscess drainage going over the risks, benefits, and alternatives. The patient understands and wishes to proceed. We spoke about the possible complications, which include but not limited to recurrence, need for additional procedures, possible fistula formation. The patient's questions were answered and we will schedule it for tomorrow. [id number]/[facility] #: [id number] SAVANNAH
[2018-12-24 17:56] LABS: Hematocrit 37 % (35-47); Hemoglobin 11.8 g/dL (12.0-16.0)
[2018-12-24 20:49] LABS: Urine Appearance Clear; Urine Bacteria Absent (Absent); Urine Bilirubin Negative (Negative); Urine Blood 2+ (Negative); Urine Color Yellow; Urine Glucose Negative (Negative); Urine Ketones 1+ (Negative); Urine Nitrite Negative (Negative); Urine Protein Negative (Negative); Urine Red Blood Cell 3+(>10/hpf) (Absent); Urine Specific Gravity 1.033 (1.010-1.030); Urine Squamous Epithelial Cell Present (Absent); Urine Urobilinogen Negative (Negative); Urine White Blood Cell Absent (Absent)
[2018-12-24] MEDS: Cefepime 1 GM in Dextrose(*) 1 GM/50 ML BAG IV SCH (22:00)
[2018-12-24 22:02] LABS: INR 2.64 (0.82-1.09)
[2018-12-24 22:07] LABS: Hematocrit 34 % (35-47); Hemoglobin 10.8 g/dL (12.0-16.0)
[2018-12-24] MEDS ORDERED: Phytonadione IV (Adult)* 5 MG in NS 0.9% 50 ML* 50 ML IV ONE (23:30)
[2018-12-24] MEDS: Atorvastatin* 10 MG TAB PO SCH (23:53)
[2018-12-24] MEDS: Calcium/Vitamin D TAB 250/125* TAB PO SCH (23:53)
[2018-12-24] MEDS: CMC:OMEGA-3 FATTY ACIDS (NF) 1,000 MG CAP PO SCH (23:55)
[2018-12-25] MEDS: oxyCODONE SR TAB(*) 20 MG TAB.SR PO SCH ×3 (00:10→22:26)
[2018-12-25] MEDS: metroNIDAZOLE IV 500 MG/100ML* 500 MG/100 ML BAG IVPB SCH ×5 (00:13→20:30)
[2018-12-25] MEDS: NS 0.9% 1000 ML** 1,000 ML IV SCH (01:37)
[2018-12-25] MEDS: Vancomycin(*) 1,000 MG in NS 0.9% 250 ML* 250 ML IVPB SCH ×3 (01:54→19:30)
[2018-12-25] MEDS: Morphine 4 MG/ML VIAL (1 ml) 4 MG/ML VIAL IV PRN ×3 (05:27→22:23)
[2018-12-25 05:48] LABS: ABS Basophils 0.1 10^3/ul (0-0.2); ABS Eosinophils 0.1 10^3/ul (0-0.6); ABS Lymphocytes 0.7 10^3/ul (1.0-4.8); ABS Monocytes 1.3 10^3/ul (0-0.8); ABS Neutrophils 19.3 10^3/ul (1.5-7.7); Eosinophil % 0.2 %; Hematocrit 32 % (35-47); Hemoglobin 10.4 g/dL (12.0-16.0); Lymphocyte % 3.2 %; Mean Corpuscular HGB Conc 33 g/dL (31-36); Mean Corpuscular Hemoglobin 28 pg (27-31); Mean Corpuscular Volume 85 fL (80-97); Mean Platelet Volume 6.7 fL (7.4-10.4); Platelet Count 353 10^3/uL (150-450); Red Blood Count 3.78 10^6 /uL (3.70-4.87); Red Cell Distribution Width 15 % (10.5-15); White Blood Count 21.5 10^3/uL (3.5-10.8)
[2018-12-25 05:59] LABS: Calcium 8.2 mg/dL (8.6-10.3); EGFR African American 91.9 (>60); Magnesium 1.9 mg/dL (1.9-2.7)
[2018-12-25 08:26] LABS: INR 1.52 (0.82-1.09)
[2018-12-25] MEDS: Cefepime 1 GM in Dextrose(*) 1 GM/50 ML BAG IV SCH ×2 (08:32→22:29)
[2018-12-25] MEDS ORDERED: Losartan TAB* 25 MG PO SCH (09:00)
--- NOTE | 2018-12-25 09:34 | PN ---
Progress Note - Progress Note Date of Service: 12/25/18 SOAP: Subjective: Pt seen and examined. Overnight events noted. Spontaneous drainage from perirectal abscess. FFp and Vit K given. Pain relieved with narcotics Sandbag to R groin and bleeding stopped Objective: Temp Pulse Resp BP Pulse Ox 98.8 F 76 28 94/41 97 12/25/18 07:58 12/25/18 07:58 12/25/18 08:30 12/25/18 07:58 12/25/18 07:58 a and o x3,mild distress abdo: obese/ NT Rectal: spontaneous drainage from L of anus opening. COpious pus encounteed. Undermined throughout. Cavity large and will require additional drainage, washout. Labs noted INR 1.5 Assessment: Morbidly obese female, SIRS 2ary to perirectal abscess- currently draining. INR 1.5 Plan: cont abx OR for incision and drainage and packing placement NPO
--- NOTE | 2018-12-25 10:00 | PN ---
Subjective Date of Service: 12/25/18 Interval History: s/p Vit K and FFP last night for reversal of INR 6. Pt with INR 1.5 this morning. She has no cardiac symptoms, has an EKG without acute findings. Her RCRI score is 0 and her Tay score is 0.1%. She is ready to proceed to the OR without further medical work up. Pt reports NO pain at rest. Now pain is only 5/10 when moving. She is unsure if this is because her abscess spontaneously drained a bit yesterday, or because of the morphine. Denies fevers, chills, night sweats. Received R femoral line yesterday with some bleeding, which has since resolved. Is receiving vanc, cefepime, and metronidazole. Objective Active Medications: Acetaminophen (Tylenol Tab*) 975 mg PO TID PRN PRN Reason: PAIN Last Admin: 12/24/18 17:30 Dose: 975 mg Atorvastatin Calcium (Lipitor*) 10 mg PO BEDTIME [facility] Last Admin: 12/24/18 23:53 Dose: 10 mg Bisacodyl (Dulcolax Supp*) 10 mg CO DAILY PRN PRN Reason: CONSTIPATION Calcium/Vitamin D (Oscal D Tab 250/125*) 2 tab PO BID [facility] Last Admin: 12/24/18 23:53 Dose: 2 tab Fish Oil (Fish Oil (Nf)) 1,000 mg PO BID [facility] Last Admin: 12/24/18 23:55 Dose: 1,000 mg Cefepime HCl (Maxipime 1 Gm In Dextrose Duplex (*)) 1 gm in 50 mls @ 100 mls/ hr IV Q12H [facility] Last Admin: 12/25/18 08:32 Dose: 100 mls/hr Metronidazole/Sodium Chloride (Flagyl 500 Mg Ivpb*) 500 mg in 100 mls @ 100 mls /hr IVPB Q6H [facility] Last Admin: 12/25/18 05:22 Dose: 100 mls/hr Sodium Chloride (Ns 0.9% 1000 Ml) 1,000 mls @ 125 mls/hr IV PER RATE [facility] Stop: 12/26/18 00:14 Last Admin: 12/25/18 01:37 Dose: 125 mls/hr Vancomycin HCl 1,000 mg/ (Sodium Chloride) 250 mls @ 166.667 mls/hr IVPB Q8H [facility] Last Admin: 12/25/18 01:54 Dose: 166.667 mls/hr Lactated Ringer's (Lactated Ringers 1000 Ml Bag*) 1,000 mls @ 0 mls/hr IV WIDE OPEN [facility] Stop: 12/25/18 23:59 Morphine Sulfate (Morphine 4 Mg/Ml Vial (1 Ml)) 3 mg IV Q2H PRN PRN Reason: PAIN Last Admin: 12/25/18 08:30 Dose: 3 mg Ondansetron HCl (Zofran Inj*) 4 mg IV Q6H PRN PRN Reason: NAUSEA Last Admin: 12/24/18 17:41 Dose: 4 mg Oxycodone HCl (Roxycodone Tab*) 10 mg PO Q4H PRN PRN Reason: PAIN Last Admin: 12/24/18 17:20 Dose: 10 mg Oxycodone HCl (Oxycontin(*)) 20 mg PO BID [facility] Last Admin: 12/25/18 00:10 Dose: 20 mg Pharmacy Consult (Vancomycin Per Pharmacy*) 1 note FOLLOW UP .VANC PER PHARMACY [facility] Pharmacy Profile Note (Vancomycin Trough Check) 1 note FOLLOW UP 1730 ONE Stop: 12/25/18 17:31 Polyethylene Glycol/Electrolytes (Miralax*) 17 gm PO DAILY PRN PRN Reason: CONSTIPATION Vital Signs - 8 hr 12/25/18 12/25/18 12/25/18 02:15 03:01 05:27 Temperature 98.7 F Pulse Rate 91 Respiratory 18 24 20 Rate Blood Pressure 94/46 (mmHg) O2 Sat by Pulse 97 Oximetry 12/25/18 12/25/18 07:58 08:30 Temperature 98.8 F Pulse Rate 76 Respiratory 20 28 Rate Blood Pressure 94/41 (mmHg) O2 Sat by Pulse 97 Oximetry Oxygen Devices in Use Now: Nasal Cannula Appearance: comfortable appearing, nontoxic, alert and interactive, daughter at bedside Ears/Nose/Mouth/Throat: Mucous Membranes Moist Respiratory: - - clear anteriorly Cardiovascular: RRR Abdominal: - - protuberant Extremities: - - no pitting edema, significant subq adiposity Neurological: Alert and Oriented x 3 Result Diagrams: 12/25/18 05:25 12/25/18 05:25 Additional Lab and Data: Lab Results 12/24/18 Range/Units 12:33 WBC 21.4 H (3.5-10.8) 10^3/uL RBC 4.65 (3.70-4.87) 10^6 /uL Hgb 12.9 (12.0-16.0) g/dL Hct 40 (35-47) % MCV 85 (80-97) fL MCH 28 (27-31) pg MCHC 33 (31-36) g/dL RDW 15 (10.5-15) % Plt Count 412 (150-450) 10^3/uL MPV 6.7 L (7.4-10.4) fL Neut % (Auto) Pending Lymph % (Auto) Pending [place] % (Auto) Pending Eos % (Auto) Pending Baso % (Auto) Pending Absolute Neuts (auto) Pending Absolute Lymphs (auto) Pending Absolute Monos (auto) Pending Absolute Eos (auto) Pending Absolute Basos (auto) Pending Absolute Nucleated RBC Pending Nucleated RBC % Pending Microbiology and Other Data: Microbiology 12/24/18 21:48 Transfusion Reaction Culture - Preliminary Blood Bag Culture Under Incubation Transfusion Reaction Gram Stain - Final 12/24/18 17:45 Skin and Soft Tissue MRSA/MSSA (PCR - Final Buttock Mrsa Negative S.aureus Negative Gram Stain - Final Assess/Plan/Problems-Billing Assessment: 73W with HTN, extreme obesity, PE x 2 on warfarin, DM2 on diet, who presents with worsening swelling and pain of her L gluteal region. Found with large leticia- rectal abscess, admitted for IV abx and surgical I&D. - Patient Problems (1) Leticia-rectal abscess Comment: - cont IV vanc, cefepime, and flagyl - f/u cultures - appreciate surgical recommendations - to OR today 5/5 - pain control - home oxycodone standing, oxy rescue for mild breakthrough main , morphine for mod-severe - monitor Hgb, fever curve (2) HTN (hypertension) Comment: holding home irbesartan and furosemide - monitor BP closely and restart as able (3) Pulmonary embolism Comment: holding AC for surgery - will restart when cleared by surgeon (4) Diabetes mellitus Comment: A1c 7.2%. Not on meds. - cont statin, holding aspirin for OR
[2018-12-25] MEDS: CMC:OMEGA-3 FATTY ACIDS (NF) 1,000 MG CAP PO SCH ×2 (10:09→22:26)
[2018-12-25] MEDS: Calcium/Vitamin D TAB 250/125* TAB PO SCH ×2 (10:09→22:27)
[2018-12-25] MEDS: Lactated Ringers 1000 ML Bag* 1,000 ML IV SCH ×2 (10:35→15:10)
[2018-12-25] MEDS ORDERED: Methylene Blue 0.5 %* 50 MG/10 ML AMP IV ONE (11:24)
[2018-12-25] MEDS ORDERED: Bupivacaine 0.25% EPI 200,000* 30 ML SDV ONE (11:24)
[2018-12-25] MEDS ORDERED: Gelfoam Sponge SIZE 100* SPONGE ONE (11:24)
[2018-12-25] MEDS ORDERED: Propofol* 10 MG/ML 20 ML BTL ONE (11:26)
[2018-12-25] MEDS ORDERED: fentaNYL* 50 MCG/ML 2 ML VIAL (100 MCG VIAL) ONE (11:26)
[2018-12-25] MEDS ORDERED: Rocuronium* 10 MG/ML VIAL ONE (11:27)
[2018-12-25] MEDS ORDERED: Midazolam* 1 MG/ML 2 ML VIAL (2 MG) ONE (11:27)
[2018-12-25] MEDS ORDERED: KETAMINE HCL* 50 MG/ML 10 ML VIAL ONE (11:48)
[2018-12-25] MEDS ORDERED: Glycopyrrolate IV* 0.2 MG/ML 1 ML VIAL ONE (12:35)
[2018-12-25] MEDS ORDERED: Neostigmine Methylsulfate* 3 MG/3 ML SYRINGE ONE (12:35)
[2018-12-25] MEDS ORDERED: Senna TAB PO PRN (12:49)
--- NOTE | 2018-12-25 12:50 | BRIEFOPN ---
Brief Operative Note - Surgery Procedures: Procedures Pre-OP Diagnoses: perianal abscesses Post-op Diagnosis: same Procedure: incisiona nd drainage of perianal abscess Surgeon: Ewa Asst: none Anethesia: SEBASTIÁN Madrigal EBL: 100cc IVF: minimal Specimen: cultures Drains: wound packed Complications: None
[2018-12-25] MEDS ORDERED: Naloxone* 0.4 MG/ML 1 ML VIAL IV PRN (12:51)
[2018-12-25] MEDS ORDERED: oxyCODONE TAB* 5 MG TAB PO PRN (12:51)
[2018-12-25] MEDS ORDERED: Ondansetron INJ* 2 MG/ML VIAL IV PRN (12:51)
[2018-12-25] MEDS ORDERED: fentaNYL* 50 MCG/ML 2 ML VIAL (100 MCG VIAL) IV PRN (12:51)
[2018-12-25] MEDS ORDERED: Acetaminophen TAB* 325 MG ONE (13:23)
[2018-12-25] MEDS: Acetaminophen TAB* 325 MG PO PRN (13:23)
[2018-12-25] MEDS ORDERED: Lactated Ringers 1000 ML Bag* 1,000 ML IV SCH (14:33)
--- NOTE | 2018-12-25 14:53 | OP ---
CC: Dr. Saenz * DATE OF OPERATION: 12/25/18 - ROOM #413 DATE OF : 47 SURGEON: Mark Mcneil MD CONTRACTS REPRESENTATIVE: None. ANESTHESIOLOGIST: Dr. Madrigal. ANESTHESIA: General anesthesia. PRE-OP DIAGNOSIS: Perianal abscess. POST-OP DIAGNOSES: Perianal abscess. OPERATIVE PROCEDURE: Incision and drainage of perianal abscess and wash out. SPECIMEN: Cultures. WOUND PACKED: Open. INDICATIONS: The patient is a morbidly obese 73-year-old female whom I met yesterday. She presented with SIRS and a large perianal abscess extending towards the left buttock. The patient was on Coumadin, had elevated INR when I met her. She had no IV access and I placed a central catheter at bedside in the emergency room and recommended incision and drainage of perirectal abscess after FFP and a vitamin K. The patient understood this plan. In the overnight, the patient did have a spontaneous drainage. She was evaluated this morning and noted to have large cavity that was not completely accessible from the small drainage site. For this reason, I recommend incision and drainage. The patient signed consent knowingly, understanding the possible complications of bleeding, infection, fistula in ano, additional disease and additional need for surgery as well as packing changes. DESCRIPTION OF PROCEDURE: The patient was taken to the operating room and placed on the operating table in a supine position. General anesthesia was induced. Sequential devices could not be placed on bilateral lower extremities due to the patient's size. She was then placed with her legs in stirrups and her knees extended at this, and for this reason, we placed sheets at her popliteal fossa to give tension, so that she would flex somewhat of the knee. She was then prepped and draped sterilely. A time-out was performed. I approached the previous spontaneous incision site, this was about 1 x 1 cm. It was undermined in all directions almost beyond my finger and we then made an incision. We opened this incision up anteriorly and then I could get in, break up loculations. Cultures were taken both aerobic and anaerobic. We then used approximately 3 L of warm saline and Pulsavac and view the site. I did a digital rectal exam and this did not communicate with the abscess. Next, the wound was packed with gauze and sterile dressing was applied. The patient tolerated the procedure well, was transferred to the PACU in stable condition. [id number]/[facility] #: [id number] [facility] HOSPITALFreida
[2018-12-25] MEDS ORDERED: Vancomycin Trough Check NOTE FOLLOW UP ONE (17:30)
[2018-12-25] MEDS: Atorvastatin* 10 MG TAB PO SCH (22:27)
[2018-12-26] MEDS: metroNIDAZOLE IV 500 MG/100ML* 500 MG/100 ML BAG IVPB SCH ×4 (02:02→21:04)
[2018-12-26] MEDS: Vancomycin(*) 1,000 MG in NS 0.9% 250 ML* 250 ML IVPB SCH ×2 (03:00→09:21)
[2018-12-26 05:47] LABS: Hematocrit 29 % (35-47); Hemoglobin 9.2 g/dL (12.0-16.0); Mean Corpuscular HGB Conc 32 g/dL (31-36); Mean Corpuscular Hemoglobin 27 pg (27-31); Mean Corpuscular Volume 85 fL (80-97); Mean Platelet Volume 6.7 fL (7.4-10.4); Platelet Count 315 10^3/uL (150-450); Red Blood Count 3.39 10^6 /uL (3.70-4.87); Red Cell Distribution Width 16 % (10.5-15); White Blood Count 16.3 10^3/uL (3.5-10.8)
[2018-12-26 05:51] LABS: INR 1.4 (0.82-1.09)
[2018-12-26 06:07] LABS: BUN/Creatinine Ratio 18.1 (8-20); Calcium 8.3 mg/dL (8.6-10.3); EGFR African American 96.3 (>60); EGFR Non-African American 79.6 (>60); Magnesium 1.9 mg/dL (1.9-2.7)
[2018-12-26 07:14] LABS: ABS Basophils 0.1 10^3/ul (0-0.2); ABS Eosinophils 0.4 10^3/ul (0-0.6); ABS Lymphocytes 1.1 10^3/ul (1.0-4.8); ABS Monocytes 0.8 10^3/ul (0-0.8); Eosinophil % 2.7 %; Lymphocyte % 6.5 %
[2018-12-26] MEDS: Calcium/Vitamin D TAB 250/125* TAB PO SCH ×2 (07:55→21:24)
[2018-12-26] MEDS: oxyCODONE SR TAB(*) 20 MG TAB.SR PO SCH ×2 (07:56→21:24)
[2018-12-26] MEDS: CMC:OMEGA-3 FATTY ACIDS (NF) 1,000 MG CAP PO SCH ×2 (08:16→21:22)
[2018-12-26] MEDS: Cefepime 1 GM in Dextrose(*) 1 GM/50 ML BAG IV SCH (08:25)
[2018-12-26] MEDS ORDERED: Enoxaparin(*) 40 MG/0.4 ML SYR SUBCUT SCH (10:00)
--- NOTE | 2018-12-26 10:16 | PN ---
Progress Note - Progress Note Date of Service: 12/26/18 Note: S: POD#1 incision and drainage. Patient states she is doing well. She states her pain has improved significantly since the drainage, notes 2/10 pain at this time. She also notes slight pain in the left upper arm from placement of IV. She has a slight cough, but denies any SOB since removal of supplemental O2 this morning. She denies any feelings of fever, chills, N/V. Bowel movement this morning. Whaley in place. Non ambulatory at this time. She is using spirometer with averages of 1500 ml. O: Vital Signs - 12 hr Temp Pulse Resp BP Pulse Ox 12/26/18 09:52 18 12/26/18 08:00 19 12/26/18 07:56 19 12/26/18 07:50 97.8 F 67 18 103/52 94 12/26/18 03:43 102/48 12/26/18 03:30 98.4 F 72 24 91/43 97 12/26/18 00:52 98 12/26/18 00:35 21 12/26/18 00:00 97 12/25/18 23:40 20 12/25/18 23:23 20 12/25/18 22:26 22 12/25/18 22:23 20 12/25/18 22:09 98.2 F 67 20 108/49 100 Intake and Output Last 24 Hours 12/24/18 12/25/18 12/26/18 12/27/18 06:59 06:59 06:59 06:59 Intake Total 3486 6050 166 Output Total 725 1275 Balance 2761 4775 166 Weight 386 lb Intake: IV Fluids 1300 5350 LR 2000 flagyl 100 vit k 100 IVPB 1706 700 166 Cefepime 58 Oral 480 0 Output: Whaley 725 1275 Other: # Bowel Movements 0 0 PE: General: Patient is sitting in bed in NAD. Alert and oriented x 3. Large area of ecchymosis in left upper arm. Small hematoma noted at previous IV site. Slight tenderness to the area upon palpation. Lungs: Slight rales in bilateral bases. Wheezing noted in right base. Heart: RRR. Grade I systolic murmur noted. Normal s1/s2. Radial pulse 2+. Abdomen: soft, non-tender. Femoral line in place without tenderness or erythema. Whaley in place. Rectal: Dressing over left perianal incision with moderate bloody drainage. Moderate tenderness notes at area of incision. Violacious skin discoloration surrounding area. Laboratory Tests 12/25/18 12/26/18 05:25 05:30 WBC 21.5 H 16.3 H Hgb 10.4 L 9.2 L Hct 32 L 29 L Absolute Neuts (auto) 19.3 H 14.0 H Current Medications Acetaminophen (Tylenol Tab*) 975 mg PO TID PRN PRN Reason: PAIN Last Admin: 12/25/18 13:23 Dose: 975 mg Atorvastatin Calcium (Lipitor*) 10 mg PO BEDTIME [facility] Last Admin: 12/25/18 22:27 Dose: 10 mg Calcium/Vitamin D (Oscal D Tab 250/125*) 2 tab PO BID [facility] Last Admin: 12/26/18 07:55 Dose: 2 tab Enoxaparin Sodium (Lovenox(*)) 40 mg SUBCUT Q24H [facility] Fish Oil (Fish Oil (Nf)) 1,000 mg PO BID [facility] Last Admin: 12/26/18 08:16 Dose: 1,000 mg Cefepime HCl (Maxipime 1 Gm In Dextrose Duplex (*)) 1 gm in 50 mls @ 100 mls/ hr IV Q12H [facility] Stop: 12/26/18 20:59 Last Admin: 12/26/18 08:25 Dose: 100 mls/hr Vancomycin HCl 1,000 mg/ (Sodium Chloride) 250 mls @ 166.667 mls/hr IVPB Q8H [facility] Last Admin: 12/26/18 09:21 Dose: 166.667 mls/hr Metronidazole/Sodium Chloride (Flagyl 500 Mg Ivpb*) 500 mg in 100 mls @ 100 mls /hr IVPB 0200,0800,1400,2000 [facility] Last Admin: 12/26/18 07:55 Dose: 100 mls/hr Cefepime HCl 1 gm/ Sodium (Chloride) 50 mls @ 100 mls/hr IVPB Q12H [facility] Morphine Sulfate (Morphine 4 Mg/Ml Vial (1 Ml)) 3 mg IV Q2H PRN PRN Reason: PAIN Last Admin: 12/25/18 22:23 Dose: 3 mg Ondansetron HCl (Zofran Inj*) 4 mg IV Q6H PRN PRN Reason: NAUSEA Last Admin: 12/24/18 17:41 Dose: 4 mg Oxycodone HCl (Roxycodone Tab*) 10 mg PO Q4H PRN PRN Reason: PAIN Last Admin: 12/24/18 17:20 Dose: 10 mg Oxycodone HCl (Oxycontin(*)) 20 mg PO BID [facility] Last Admin: 12/26/18 07:56 Dose: 20 mg Pharmacy Consult (Vancomycin Per Pharmacy*) 1 note FOLLOW UP .VANC PER PHARMACY [facility] Polyethylene Glycol/Electrolytes (Miralax*) 17 gm PO DAILY PRN PRN Reason: CONSTIPATION Last Admin: 12/26/18 08:16 Dose: 17 gm Senna (Senokot Tab*) 1 tab PO BEDTIME PRN PRN Reason: if no BM during day Last Admin: 12/26/18 07:55 Dose: 1 tab A: s/p incision and drainage for perianal abscess P: Incision has moderate drainage, continue packing and dressing changes. MRSA and MSSA negative with complete culture results still pending. Continue abx with cefepime and vancomycin. WBC count improving. Encouraged continued use of spirometer, consider consult with respiratory for wheeze and cough. Continue whaley.
--- NOTE | 2018-12-26 10:37 | PN ---
Subjective Date of Service: 12/26/18 Interval History: Pt reports significant improvement in L buttock/labial pain. Denies SOB/cough. Able to DC supplemental oxygen. Noted decrease in Hgb. Pt had spontaneous bleeding from abscess 2 days ago when INR was 6. Yesterday she received significant IVF and has some blood loss during surgery. No current concerns for active bleeding but will continue to monitor closely. Will attempt PICC line today in order to remove femoral line. Will DC vanc given MRSA/MSSA NEGATIVE. Objective Active Medications: Acetaminophen (Tylenol Tab*) 975 mg PO TID PRN PRN Reason: PAIN Last Admin: 12/25/18 13:23 Dose: 975 mg Atorvastatin Calcium (Lipitor*) 10 mg PO BEDTIME [facility] Last Admin: 12/25/18 22:27 Dose: 10 mg Calcium/Vitamin D (Oscal D Tab 250/125*) 2 tab PO BID [facility] Last Admin: 12/26/18 07:55 Dose: 2 tab Enoxaparin Sodium (Lovenox(*)) 40 mg SUBCUT Q24H [facility] Fish Oil (Fish Oil (Nf)) 1,000 mg PO BID [facility] Last Admin: 12/26/18 08:16 Dose: 1,000 mg Cefepime HCl (Maxipime 1 Gm In Dextrose Duplex (*)) 1 gm in 50 mls @ 100 mls/ hr IV Q12H [facility] Stop: 12/26/18 20:59 Last Admin: 12/26/18 08:25 Dose: 100 mls/hr Vancomycin HCl 1,000 mg/ (Sodium Chloride) 250 mls @ 166.667 mls/hr IVPB Q8H [facility] Last Admin: 12/26/18 09:21 Dose: 166.667 mls/hr Metronidazole/Sodium Chloride (Flagyl 500 Mg Ivpb*) 500 mg in 100 mls @ 100 mls /hr IVPB 0200,0800,1400,2000 [facility] Last Admin: 12/26/18 07:55 Dose: 100 mls/hr Cefepime HCl 1 gm/ Sodium (Chloride) 50 mls @ 100 mls/hr IVPB Q12H [facility] Morphine Sulfate (Morphine 4 Mg/Ml Vial (1 Ml)) 3 mg IV Q2H PRN PRN Reason: PAIN Last Admin: 12/25/18 22:23 Dose: 3 mg Ondansetron HCl (Zofran Inj*) 4 mg IV Q6H PRN PRN Reason: NAUSEA Last Admin: 12/24/18 17:41 Dose: 4 mg Oxycodone HCl (Roxycodone Tab*) 10 mg PO Q4H PRN PRN Reason: PAIN Last Admin: 12/24/18 17:20 Dose: 10 mg Oxycodone HCl (Oxycontin(*)) 20 mg PO BID [facility] Last Admin: 12/26/18 07:56 Dose: 20 mg Pharmacy Consult (Vancomycin Per Pharmacy*) 1 note FOLLOW UP .VANC PER PHARMACY [facility] Polyethylene Glycol/Electrolytes (Miralax*) 17 gm PO DAILY PRN PRN Reason: CONSTIPATION Last Admin: 12/26/18 08:16 Dose: 17 gm Senna (Senokot Tab*) 1 tab PO BEDTIME PRN PRN Reason: if no BM during day Last Admin: 12/26/18 07:55 Dose: 1 tab Vital Signs - 8 hr 12/26/18 12/26/18 12/26/18 03:30 03:43 07:50 Temperature 98.4 F 97.8 F Pulse Rate 72 67 Respiratory 24 18 Rate Blood Pressure 91/43 102/48 103/52 (mmHg) O2 Sat by Pulse 97 94 Oximetry 12/26/18 12/26/18 12/26/18 07:56 08:00 09:52 Temperature Pulse Rate Respiratory 19 19 18 Rate Blood Pressure (mmHg) O2 Sat by Pulse Oximetry Oxygen Devices in Use Now: None Appearance: no distress, alert and interactive, pleasant Respiratory: Clear to Auscultation Cardiovascular: RRR Abdominal: NL Sounds; No Tenderness; No Distention Extremities: - - no LE pitting edema Skin: No Rash or Ulcers Neurological: Alert and Oriented x 3 Result Diagrams: 12/26/18 12:40 12/26/18 05:30 Additional Lab and Data: Lab Results 12/24/18 Range/Units 12:33 WBC 21.4 H (3.5-10.8) 10^3/uL RBC 4.65 (3.70-4.87) 10^6 /uL Hgb 12.9 (12.0-16.0) g/dL Hct 40 (35-47) % MCV 85 (80-97) fL MCH 28 (27-31) pg MCHC 33 (31-36) g/dL RDW 15 (10.5-15) % Plt Count 412 (150-450) 10^3/uL MPV 6.7 L (7.4-10.4) fL Neut % (Auto) Pending Lymph % (Auto) Pending [place] % (Auto) Pending Eos % (Auto) Pending Baso % (Auto) Pending Absolute Neuts (auto) Pending Absolute Lymphs (auto) Pending Absolute Monos (auto) Pending Absolute Eos (auto) Pending Absolute Basos (auto) Pending Absolute Nucleated RBC Pending Nucleated RBC % Pending Microbiology and Other Data: Microbiology 12/24/18 21:48 Transfusion Reaction Culture - Preliminary Blood Bag Culture Under Incubation Transfusion Reaction Gram Stain - Final 12/24/18 17:45 Skin and Soft Tissue MRSA/MSSA (PCR - Final Buttock Mrsa Negative S.aureus Negative Gram Stain - Final Assess/Plan/Problems-Billing Assessment: 73W with HTN, extreme obesity, PE x 2 on warfarin, DM2 on diet, who presents with worsening swelling and pain of her L gluteal region. Found with large leticia- rectal abscess, admitted for IV abx and surgical I&D. - Patient Problems (1) Leticia-rectal abscess Comment: s/p I&D on OR on 12/25 - cont IV cefepime and Flagyl (12/24 - ) - f/u cultures - pain control - home oxycodone standing, oxy rescue for mild breakthrough main , morphine for mod-severe (2) HTN (hypertension) Comment: holding home irbesartan and furosemide - monitor BP closely and restart as able (3) Pulmonary embolism Comment: cleared by surgery to restart warfarin - start tonight - cont subq lovenox for DVT ppx until INR at goal (4) Diabetes mellitus Comment: A1c 7.2%. Not on meds. - cont statin, aspirin
[2018-12-26 13:01] LABS: Hematocrit 31 % (35-47); Hemoglobin 9.8 g/dL (12.0-16.0); Mean Corpuscular HGB Conc 32 g/dL (31-36); Mean Corpuscular Hemoglobin 27 pg (27-31); Mean Corpuscular Volume 85 fL (80-97); Mean Platelet Volume 6.9 fL (7.4-10.4); Platelet Count 340 10^3/uL (150-450); Red Blood Count 3.59 10^6 /uL (3.70-4.87); Red Cell Distribution Width 16 % (10.5-15); White Blood Count 16.8 10^3/uL (3.5-10.8)
[2018-12-26] MEDS ORDERED: Warfarin TAB(*) 2 MG PO ONE (17:00)
[2018-12-26] MEDS: Enoxaparin(*) 40 MG/0.4 ML SYR SUBCUT SCH (21:23)
[2018-12-26] MEDS: Atorvastatin* 10 MG TAB PO SCH (21:24)
[2018-12-26] MEDS: Cefepime ADVAN(*) 1 GM in NS 0.9% 50 ML* 50 ML IVPB SCH (21:27)
[2018-12-27] MEDS: Morphine 4 MG/ML VIAL (1 ml) 4 MG/ML VIAL IV PRN (02:11)
[2018-12-27] MEDS: metroNIDAZOLE IV 500 MG/100ML* 500 MG/100 ML BAG IVPB SCH ×2 (02:18→08:00)
[2018-12-27 06:56] LABS: Hematocrit 30 % (35-47); Hemoglobin 9.8 g/dL (12.0-16.0); Mean Corpuscular HGB Conc 33 g/dL (31-36); Mean Corpuscular Hemoglobin 28 pg (27-31); Mean Corpuscular Volume 85 fL (80-97); Mean Platelet Volume 6.8 fL (7.4-10.4); Platelet Count 321 10^3/uL (150-450); Red Blood Count 3.49 10^6 /uL (3.70-4.87); Red Cell Distribution Width 16 % (10.5-15); White Blood Count 10.8 10^3/uL (3.5-10.8)
[2018-12-27 06:57] LABS: INR 1.44 (0.82-1.09)
[2018-12-27 07:07] LABS: BUN/Creatinine Ratio 18.2 (8-20); Calcium 8.7 mg/dL (8.6-10.3); EGFR African American 106.5 (>60); Potassium 4.2 mmol/L (3.5-5.0)
[2018-12-27] MEDS: oxyCODONE SR TAB(*) 20 MG TAB.SR PO SCH ×2 (07:59→20:21)
[2018-12-27] MEDS: CMC:OMEGA-3 FATTY ACIDS (NF) 1,000 MG CAP PO SCH ×2 (07:59→20:21)
[2018-12-27] MEDS: Calcium/Vitamin D TAB 250/125* TAB PO SCH ×2 (07:59→20:21)
[2018-12-27 08:20] LABS: ABS Basophils 0.1 10^3/ul (0-0.2); ABS Eosinophils 0.4 10^3/ul (0-0.6); ABS Lymphocytes 1.2 10^3/ul (1.0-4.8); ABS Monocytes 0.6 10^3/ul (0-0.8); ABS Neutrophils 8.6 10^3/ul (1.5-7.7); Eosinophil % 3.7 %; Lymphocyte % 10.7 %; Nucleated Red Blood Cells % 0.1
--- NOTE | 2018-12-27 08:25 | PN ---
Subjective Date of Service: 12/27/18 Interval History: Pt is feeling well today. She states the pain in her bottom is much less than it has been. She is excited to get up sitting on the edge of the bed for breakfast this AM. No issues with SOB, CP or constipation. Pain is controlled typically with her usual oxycontin and prn oxycodone. Objective Active Medications: Acetaminophen (Tylenol Tab*) 975 mg PO TID PRN PRN Reason: PAIN Last Admin: 12/25/18 13:23 Dose: 975 mg Atorvastatin Calcium (Lipitor*) 10 mg PO BEDTIME [facility] Last Admin: 12/26/18 21:24 Dose: 10 mg Calcium/Vitamin D (Oscal D Tab 250/125*) 2 tab PO BID [facility] Last Admin: 12/27/18 07:59 Dose: 2 tab Enoxaparin Sodium (Lovenox(*)) 40 mg SUBCUT BEDTIME [facility] Last Admin: 12/26/18 21:23 Dose: 40 mg Fish Oil (Fish Oil (Nf)) 1,000 mg PO BID [facility] Last Admin: 12/27/18 07:59 Dose: 1,000 mg Cefepime HCl 1 gm/ Sodium (Chloride) 50 mls @ 100 mls/hr IVPB Q12H [facility] Last Admin: 12/26/18 21:27 Dose: 100 mls/hr Metronidazole (Flagyl Tab*) 500 mg PO TID [facility] Morphine Sulfate (Morphine 4 Mg/Ml Vial (1 Ml)) 3 mg IV Q2H PRN PRN Reason: PAIN Last Admin: 12/27/18 02:11 Dose: 3 mg Ondansetron HCl (Zofran Inj*) 4 mg IV Q6H PRN PRN Reason: NAUSEA Last Admin: 12/24/18 17:41 Dose: 4 mg Oxycodone HCl (Roxycodone Tab*) 10 mg PO Q4H PRN PRN Reason: PAIN Last Admin: 12/24/18 17:20 Dose: 10 mg Oxycodone HCl (Oxycontin(*)) 20 mg PO BID [facility] Last Admin: 12/27/18 07:59 Dose: 20 mg Pharmacy Profile Note (Coumadin Per Pharmacy*) 1 note FOLLOW UP .PER PHARMACY [facility]OC [facility]; Protocol Polyethylene Glycol/Electrolytes (Miralax*) 17 gm PO DAILY PRN PRN Reason: CONSTIPATION Last Admin: 12/26/18 08:16 Dose: 17 gm Senna (Senokot Tab*) 1 tab PO BEDTIME PRN PRN Reason: if no BM during day Last Admin: 12/26/18 07:55 Dose: 1 tab Warfarin Sodium (Coumadin Tab(*)) 2 mg PO ONCE@1700 ONE Stop: 12/27/18 17:01 Vital Signs - 8 hr 12/27/18 12/27/18 12/27/18 00:53 02:11 03:10 Temperature Pulse Rate Respiratory 21 20 Rate Blood Pressure (mmHg) O2 Sat by Pulse 95 Oximetry 12/27/18 12/27/18 03:35 07:59 Temperature 98.6 F Pulse Rate 74 Respiratory 18 18 Rate Blood Pressure 100/38 (mmHg) O2 Sat by Pulse 90 Oximetry Oxygen Devices in Use Now: None Appearance: Elderly female sitting up in bed, NAD Eyes: No Scleral Icterus Ears/Nose/Mouth/Throat: Mucous Membranes Moist Respiratory: Symmetrical Chest Expansion and Respiratory Effort, Clear to Auscultation - anteriorly Cardiovascular: NL Sounds; No Murmurs; No JVD, RRR, No Edema Abdominal: NL Sounds; No Tenderness; No Distention Extremities: No Clubbing, Cyanosis Skin: - - I&D site not inspected by myself- dressing due to be changed this AM by Dr. Mcneil; bruising noted on the L arm Neurological: Alert and Oriented x 3 Result Diagrams: 12/27/18 06:30 12/27/18 06:30 Additional Lab and Data: Lab Results 12/24/18 Range/Units 12:33 WBC 21.4 H (3.5-10.8) 10^3/uL RBC 4.65 (3.70-4.87) 10^6 /uL Hgb 12.9 (12.0-16.0) g/dL Hct 40 (35-47) % MCV 85 (80-97) fL MCH 28 (27-31) pg MCHC 33 (31-36) g/dL RDW 15 (10.5-15) % Plt Count 412 (150-450) 10^3/uL MPV 6.7 L (7.4-10.4) fL Neut % (Auto) Pending Lymph % (Auto) Pending [place] % (Auto) Pending Eos % (Auto) Pending Baso % (Auto) Pending Absolute Neuts (auto) Pending Absolute Lymphs (auto) Pending Absolute Monos (auto) Pending Absolute Eos (auto) Pending Absolute Basos (auto) Pending Absolute Nucleated RBC Pending Nucleated RBC % Pending Microbiology and Other Data: Microbiology 12/24/18 21:48 Transfusion Reaction Culture - Preliminary Blood Bag Culture Under Incubation Transfusion Reaction Gram Stain - Final 12/24/18 17:45 Skin and Soft Tissue MRSA/MSSA (PCR - Final Buttock Mrsa Negative S.aureus Negative Gram Stain - Final Assess/Plan/Problems-Billing 73yo F who has a h/o HTN, obesity, PE x 2 on warfarin, DM2 on diet control, who presents with worsening swelling and pain of her L gluteal region. Found with large leticia-rectal abscess, admitted for IV abx and surgical I&D. - Patient Problems (1) Leticia-rectal abscess Current Visit: Yes Status: Acute Code(s): K61.1 - RECTAL ABSCESS SNOMED Code(s): 86325394 Comment: POD#2 from I&D of perirectal abscess. Culture from OR pending but prior culture grew strep constellatus and bacteroides thetaiotaomicron. Continue cefpime and flagyl (change to oral flagyl). Pain control is generally being achieved by her home oxycontin and oxycodone. (2) Diabetes mellitus Current Visit: Yes Status: Acute Code(s): E11.9 - TYPE 2 DIABETES MELLITUS WITHOUT COMPLICATIONS SNOMED Code(s): 56645794 Comment: A1c 7.2% this admission. Continue diet control. (3) Pulmonary embolism Current Visit: Yes Status: Acute Priority: High Onset Date: 05/12/14 Code(s): I26.99 - OTHER PULMONARY EMBOLISM WITHOUT ACUTE COR PULMONALE SNOMED Code(s): 92938061 Comment: H/O PE x2. Coumadin restarted last night. Follow INR. Lovenox for DVT prophylaxis until INR is therapeutic. (4) HTN (hypertension) Current Visit: Yes Status: Chronic Code(s): I10 - ESSENTIAL (PRIMARY) HYPERTENSION SNOMED Code(s): 87121433 Comment: BP remains soft. Continue to hold irbesartan and lasix. (5) HLD (hyperlipidemia) Current Visit: Yes Status: Chronic Code(s): E78.5 - HYPERLIPIDEMIA, UNSPECIFIED SNOMED Code(s): 40018305 Comment: Continue lipitor. (6) Obesity, morbid, BMI 50 or higher Current Visit: Yes Status: Chronic Code(s): E66.01 - MORBID (SEVERE) OBESITY DUE TO EXCESS CALORIES SNOMED Code(s): 383612540 Comment: Noted (7) Full code status Current Visit: Yes Status: Acute Code(s): Z78.9 - OTHER SPECIFIED HEALTH STATUS SNOMED Code(s): 548321231
[2018-12-27] MEDS: metroNIDAZOLE TAB* 250 MG PO SCH ×3 (08:48→20:20)
[2018-12-27] MEDS: Cefepime ADVAN(*) 1 GM in NS 0.9% 50 ML* 50 ML IVPB SCH ×2 (09:31→21:23)
[2018-12-27] MEDS: oxyCODONE TAB* 5 MG TAB PO PRN (14:10)
[2018-12-27] MEDS ORDERED: Warfarin TAB(*) 2 MG PO ONE (17:00)
[2018-12-27] MEDS: Enoxaparin(*) 40 MG/0.4 ML SYR SUBCUT SCH (20:18)
[2018-12-27] MEDS: Atorvastatin* 10 MG TAB PO SCH (20:21)
[2018-12-28] MEDS: oxyCODONE TAB* 5 MG TAB PO PRN ×4 (01:47→20:17)
[2018-12-28 06:17] LABS: INR 1.5 (0.82-1.09)
[2018-12-28] MEDS: Cefepime ADVAN(*) 1 GM in NS 0.9% 50 ML* 50 ML IVPB SCH ×2 (08:09→20:07)
[2018-12-28] MEDS: Calcium/Vitamin D TAB 250/125* TAB PO SCH ×2 (08:10→20:08)
[2018-12-28] MEDS: oxyCODONE SR TAB(*) 20 MG TAB.SR PO SCH ×2 (08:10→20:09)
[2018-12-28] MEDS: CMC:OMEGA-3 FATTY ACIDS (NF) 1,000 MG CAP PO SCH ×2 (08:10→20:07)
[2018-12-28] MEDS: metroNIDAZOLE TAB* 250 MG PO SCH ×3 (08:11→20:08)
--- NOTE | 2018-12-28 15:18 | PN ---
Subjective Date of Service: 12/28/18 Interval History: Pt is feeling well. No pain or SOB. Pain from perirectal abscess I&D improved and controlled. She has mild bruising and tenderness at the corners of the jaw. Objective Active Medications: Acetaminophen (Tylenol Tab*) 975 mg PO TID PRN PRN Reason: PAIN Last Admin: 12/25/18 13:23 Dose: 975 mg Atorvastatin Calcium (Lipitor*) 10 mg PO BEDTIME [facility] Last Admin: 12/27/18 20:21 Dose: 10 mg Calcium/Vitamin D (Oscal D Tab 250/125*) 2 tab PO BID [facility] Last Admin: 12/28/18 08:10 Dose: 2 tab Enoxaparin Sodium (Lovenox(*)) 40 mg SUBCUT BEDTIME [facility] Last Admin: 12/27/18 20:18 Dose: 40 mg Fish Oil (Fish Oil (Nf)) 1,000 mg PO BID [facility] Last Admin: 12/28/18 08:10 Dose: 1,000 mg Heparin Sodium (Porcine) (Heparin Flush Picc/Ml/Cvc(*)) 1 - 3 ml FLUSH 0600, 1800 [facility]; Protocol Last Admin: 12/28/18 05:30 Dose: 2 ml Cefepime HCl 1 gm/ Sodium (Chloride) 50 mls @ 100 mls/hr IVPB Q12H [facility] Last Admin: 12/28/18 08:09 Dose: 100 mls/hr Metronidazole (Flagyl Tab*) 500 mg PO TID [facility] Last Admin: 12/28/18 14:04 Dose: 500 mg Morphine Sulfate (Morphine 4 Mg/Ml Vial (1 Ml)) 3 mg IV Q2H PRN PRN Reason: PAIN Last Admin: 12/27/18 02:11 Dose: 3 mg Ondansetron HCl (Zofran Inj*) 4 mg IV Q6H PRN PRN Reason: NAUSEA Last Admin: 12/24/18 17:41 Dose: 4 mg Oxycodone HCl (Roxycodone Tab*) 10 mg PO Q4H PRN PRN Reason: PAIN Last Admin: 12/28/18 14:05 Dose: 10 mg Oxycodone HCl (Oxycontin(*)) 20 mg PO BID [facility] Last Admin: 12/28/18 08:10 Dose: 20 mg Pharmacy Profile Note (Coumadin Per Pharmacy*) 1 note FOLLOW UP .PER PHARMACY [facility]; Protocol Polyethylene Glycol/Electrolytes (Miralax*) 17 gm PO DAILY PRN PRN Reason: CONSTIPATION Last Admin: 12/26/18 08:16 Dose: 17 gm Senna (Senokot Tab*) 1 tab PO BEDTIME PRN PRN Reason: if no BM during day Last Admin: 12/26/18 07:55 Dose: 1 tab Warfarin Sodium (Coumadin Tab(*)) 3 mg PO 1700 ONE Stop: 12/28/18 17:01 Vital Signs - 8 hr 12/28/18 12/28/18 12/28/18 07:24 08:00 08:08 Temperature 97.9 F Pulse Rate 69 Respiratory 18 20 18 Rate Blood Pressure 110/59 (mmHg) O2 Sat by Pulse 95 95 Oximetry 12/28/18 12/28/18 12/28/18 08:10 11:06 12:56 Temperature 98.0 F Pulse Rate 72 Respiratory 18 18 Rate Blood Pressure 114/52 (mmHg) O2 Sat by Pulse 94 94 Oximetry 12/28/18 14:05 Temperature Pulse Rate Respiratory 18 Rate Blood Pressure (mmHg) O2 Sat by Pulse Oximetry Oxygen Devices in Use Now: None Appearance: Elderly morbidly obese female lying in bed, NAD Eyes: No Scleral Icterus Ears/Nose/Mouth/Throat: Mucous Membranes Moist Respiratory: Symmetrical Chest Expansion and Respiratory Effort, Clear to Auscultation - anteriorly Cardiovascular: NL Sounds; No Murmurs; No JVD, RRR, No Edema Abdominal: NL Sounds; No Tenderness; No Distention Extremities: No Clubbing, Cyanosis Skin: No Nodules or Sclerosis Neurological: Alert and Oriented x 3 Result Diagrams: 12/27/18 06:30 12/27/18 06:30 Additional Lab and Data: Lab Results 12/24/18 Range/Units 12:33 WBC 21.4 H (3.5-10.8) 10^3/uL RBC 4.65 (3.70-4.87) 10^6 /uL Hgb 12.9 (12.0-16.0) g/dL Hct 40 (35-47) % MCV 85 (80-97) fL MCH 28 (27-31) pg MCHC 33 (31-36) g/dL RDW 15 (10.5-15) % Plt Count 412 (150-450) 10^3/uL MPV 6.7 L (7.4-10.4) fL Neut % (Auto) Pending Lymph % (Auto) Pending [place] % (Auto) Pending Eos % (Auto) Pending Baso % (Auto) Pending Absolute Neuts (auto) Pending Absolute Lymphs (auto) Pending Absolute Monos (auto) Pending Absolute Eos (auto) Pending Absolute Basos (auto) Pending Absolute Nucleated RBC Pending Nucleated RBC % Pending Microbiology and Other Data: Microbiology 12/24/18 21:48 Transfusion Reaction Culture - Preliminary Blood Bag Culture Under Incubation Transfusion Reaction Gram Stain - Final 12/24/18 17:45 Skin and Soft Tissue MRSA/MSSA (PCR - Final Buttock Mrsa Negative S.aureus Negative Gram Stain - Final Assess/Plan/Problems-Billing 73yo F who has a h/o HTN, obesity, PE x 2 on warfarin, DM2 on diet control, who presents with worsening swelling and pain of her L gluteal region. Found with large leticia-rectal abscess, admitted for IV abx and surgical I&D. - Patient Problems (1) Leticia-rectal abscess Current Visit: Yes Status: Acute Code(s): K61.1 - RECTAL ABSCESS SNOMED Code(s): 79405956 Comment: POD#3 from I&D of perirectal abscess. Culture from OR grew strep constellatus. Change to clindamycin 600mg TID. Will reach out to Dr. Mcneil to get recommendations on packing changes. Continue usual pain medicatin regimen. (2) Diabetes mellitus Current Visit: Yes Status: Acute Code(s): E11.9 - TYPE 2 DIABETES MELLITUS WITHOUT COMPLICATIONS SNOMED Code(s): 24188043 Comment: A1c 7.2% this admission. Continue diet control. (3) Pulmonary embolism Current Visit: Yes Status: Acute Priority: High Onset Date: 05/12/14 Code(s): I26.99 - OTHER PULMONARY EMBOLISM WITHOUT ACUTE COR PULMONALE SNOMED Code(s): 99706881 Comment: H/O PE x2. Coumadin restarte.. Follow INR. Lovenox for DVT prophylaxis until INR is therapeutic. (4) HTN (hypertension) Current Visit: Yes Status: Chronic Code(s): I10 - ESSENTIAL (PRIMARY) HYPERTENSION SNOMED Code(s): 95063097 Comment: BP in good range off her usual medications. Will resume lasix. (5) HLD (hyperlipidemia) Current Visit: Yes Status: Chronic Code(s): E78.5 - HYPERLIPIDEMIA, UNSPECIFIED SNOMED Code(s): 24525936 Comment: Continue lipitor. (6) Obesity, morbid, BMI 50 or higher Current Visit: Yes Status: Chronic Code(s): E66.01 - MORBID (SEVERE) OBESITY DUE TO EXCESS CALORIES SNOMED Code(s): 199941759 Comment: Noted (7) Full code status Current Visit: Yes Status: Acute Code(s): Z78.9 - OTHER SPECIFIED HEALTH STATUS SNOMED Code(s): 175178078
[2018-12-28] MEDS ORDERED: Warfarin TAB(*) 3 MG PO ONE (17:00)
[2018-12-28] MEDS: Enoxaparin(*) 40 MG/0.4 ML SYR SUBCUT SCH (20:07)
[2018-12-28] MEDS: Atorvastatin* 10 MG TAB PO SCH (20:08)
[2018-12-29] MEDS: oxyCODONE TAB* 5 MG TAB PO PRN (05:05)
[2018-12-29 05:31] LABS: INR 1.59 (0.82-1.09)
--- NOTE | 2018-12-29 08:54 | PN ---
Progress Note - Progress Note Date of Service: 12/29/18 Note: Surgery progress: S: POD #4. On cefipime and flagyl. Doing well. Not too much pain in the perirectal area. Drainage min to mod. Current Medications Acetaminophen (Tylenol Tab*) 975 mg PO TID PRN PRN Reason: PAIN Last Admin: 12/25/18 13:23 Dose: 975 mg Aspirin (Aspirin Ec Tab*) 81 mg PO DAILY [facility] Atorvastatin Calcium (Lipitor*) 10 mg PO BEDTIME [facility] Last Admin: 12/28/18 20:08 Dose: 10 mg Calcium/Vitamin D (Oscal D Tab 250/125*) 2 tab PO BID [facility] Last Admin: 12/28/18 20:08 Dose: 2 tab Enoxaparin Sodium (Lovenox(*)) 40 mg SUBCUT BEDTIME [facility] Last Admin: 12/28/18 20:07 Dose: 40 mg Fish Oil (Fish Oil (Nf)) 1,000 mg PO BID [facility] Last Admin: 12/28/18 20:07 Dose: 1,000 mg Furosemide (Lasix Tab*) 40 mg PO DAILY [facility] Heparin Sodium (Porcine) (Heparin Flush Picc/Ml/Cvc(*)) 1 - 3 ml FLUSH 0600, 1800 [facility]; Protocol Last Admin: 12/29/18 05:06 Dose: 2 ml Cefepime HCl 1 gm/ Sodium (Chloride) 50 mls @ 100 mls/hr IVPB Q12H [facility] Last Admin: 12/28/18 20:07 Dose: 100 mls/hr Metronidazole (Flagyl Tab*) 500 mg PO TID [facility] Last Admin: 12/28/18 20:08 Dose: 500 mg Morphine Sulfate (Morphine 4 Mg/Ml Vial (1 Ml)) 3 mg IV Q2H PRN PRN Reason: PAIN Last Admin: 12/27/18 02:11 Dose: 3 mg Ondansetron HCl (Zofran Inj*) 4 mg IV Q6H PRN PRN Reason: NAUSEA Last Admin: 12/24/18 17:41 Dose: 4 mg Oxycodone HCl (Roxycodone Tab*) 10 mg PO Q4H PRN PRN Reason: PAIN Last Admin: 12/29/18 05:05 Dose: 10 mg Oxycodone HCl (Oxycontin(*)) 20 mg PO BID [facility] Last Admin: 12/28/18 20:09 Dose: 20 mg Pharmacy Profile Note (Coumadin Per Pharmacy*) 1 note FOLLOW UP .PER PHARMACY PROTOC [facility]; Protocol Polyethylene Glycol/Electrolytes (Miralax*) 17 gm PO DAILY PRN PRN Reason: CONSTIPATION Last Admin: 12/26/18 08:16 Dose: 17 gm Senna (Senokot Tab*) 1 tab PO BEDTIME PRN PRN Reason: if no BM during day Last Admin: 12/26/18 07:55 Dose: 1 tab O: Vital Signs - 8 hr 12/29/18 12/29/18 12/29/18 02:47 05:05 07:37 Temperature 98.3 F 97.6 F Pulse Rate 81 86 Respiratory 18 18 18 Rate Blood Pressure 127/65 126/60 (mmHg) O2 Sat by Pulse 94 96 Oximetry Gen: NAD Left Nelda rectal area: packing removed; 1/2" saline moistened pkg replaced which she magno'd well; no apparent undrained collection; induration and mild tenderness as expected. A: s/p I&D Left perirectal abscess, improving P: cont wound care; abx and d/c dispo per hospitalist. Patient states she will be going to [facility] upon discharge, but would like to remain at [facility] for another day or two for wound care. This could be done on either an inpt or outpt basis. If d/c'd, she will need f/u w/ Dr. Mcneil either in the wound clinic or the office.
[2018-12-29] MEDS ORDERED: Furosemide TAB* 20 MG PO SCH (09:00)
[2018-12-29] MEDS ORDERED: Aspirin EC TAB* 81 MG TAB.EC PO SCH (09:00)
[2018-12-29] MEDS: Cefepime ADVAN(*) 1 GM in NS 0.9% 50 ML* 50 ML IVPB SCH (09:15)
[2018-12-29] MEDS: metroNIDAZOLE TAB* 250 MG PO SCH (09:16)
[2018-12-29] MEDS: Calcium/Vitamin D TAB 250/125* TAB PO SCH (09:16)
[2018-12-29] MEDS: oxyCODONE SR TAB(*) 20 MG TAB.SR PO SCH (09:17)
[2018-12-29] MEDS: CMC:OMEGA-3 FATTY ACIDS (NF) 1,000 MG CAP PO SCH (09:17)
--- NOTE | 2018-12-29 10:49 | DS ---
CC: Dr. Saenz; Dr. Mcneil* DISCHARGE SUMMARY: DATE OF ADMISSION: 12/24/18 DATE OF DISCHARGE: 12/29/18 PRIMARY CARE PROVIDER: Dr. Saenz. SURGEON: Dr. Mcneil. PRINCIPAL DIAGNOSIS: Perirectal abscess. SECONDARY DIAGNOSES: 1. History of pulmonary embolism x2. 2. Hypertension. 4. Hyperlipidemia. 5. Osteoarthritis. DISCHARGE MEDICATIONS: 1. Dulcolax 10 mg p.o. daily p.r.n. constipation. 2. Tylenol 975 mg p.o. t.i.d. p.r.n. pain. 3. Simvastatin 20 mg p.o. q.h.s. 4. OxyContin 20 mg p.o. b.i.d. 5. Oxycodone 10 mg p.o. q.4 hours p.r.n. pain. 6. [place]-3 fatty acid 1 cap p.o. b.i.d. 7. Garlic 1000 mg p.o. daily. 8. Lasix 40 mg p.o. daily. 9. Calcium Plus D 2 tabs p.o. b.i.d. 10. Aspirin 81 mg p.o. daily. 11. Coumadin 2 mg p.o. q.h.s. 12. Flagyl 500 mg p.o. b.i.d. x7 days. 13. MiraLAX 17 g p.o. q.h.s. 14. Cefpodoxime 200 mg p.o. q.12 hours x7 days. HOSPITAL COURSE: Ms. Tipton is a 73-year-old morbidly obese female who has a history of pulmonary embolism x2 and hypertension, who presented to the emergency room with complaints of 6 days of perineal pain. The patient was seen in the ER approximately 1 week prior due to this pain. She was recommended to use sitz baths. The patient had no improvement in the pain and, in fact, it worsened. On 12/21/18, she was seen by her PCP who started cefuroxime. The patient ultimately presented to the emergency room for continued symptoms. A CT scan of the abdomen and pelvis revealed a large 13 cm x 10 cm x 8 cm abscess to the left gluteal fold. The patient was admitted for a perirectal abscess. The patient was seen in consultation by Dr. Mcneil. It was his impression that the patient likely had perirectal abscess. The patient was taken to the OR on 12/25/18 for incision and drainage of the perirectal abscess. The patient has been doing quite well since surgery. She has no pain at this point. Dressing changes are to be done on a daily basis. The plan for dressing change is daily saline moistened 1-inch plain packing gauze to the open wound perirectal abscess cavity to cover with a dry sterile dressing and change the cover dressing as needed if wet or soiled. The patient had been taken off her Coumadin due to going to the OR. Her INR on the day of discharge is slowly climbing back and is at 1.59. The patient will continue on 2 mg of Coumadin daily. She should have the next INR on 01/02/19. In the meantime, the patient should continue on Lovenox 40 mg subcutaneous q.h.s. for DVT prophylaxis, as the patient is not as mobile as she typically is. Also of note, the patient's ARB was held. On her admission paper work, it appears that the patient was taking both losartan and irbesartan. It is unclear why this was occurring. The patient's blood pressure has been under excellent control off the antihypertensives, but is slowly creeping up by the time of discharge. The patient will need to likely be restarted on ARB therapy soon. The dose and accurate medication should be obtained from the patient prior to restarting the medication. PHYSICAL EXAMINATION: On the day of discharge, the patient is awake, alert, and oriented; sitting up in bed, in no acute distress. Cardiac: Normal S1, S2. Regular rate and rhythm. Lungs are clear. Abdomen is soft, nontender, and nondistended. FOLLOWUP CONCERNS: The patient is being discharged to [facility] today on 05/11. Activity level is as tolerated. Diet is regular. CONDITION ON DISCHARGE: Stable. TIME SPENT: 35 minutes was spent discharging this patient. [id number]/[facility] #: [id number] SAVANNAH
[2018-12-29 12:55] VITALS: BP 118/63
[2018-12-29] MEDS ORDERED: Warfarin TAB(*) 3 MG PO ONE (17:00)
== END 2018-12-29 13:50 | DRG 346 ==
LOC: ED 11:12 → MED 15:13 → OBSVTOIN 12-25 16:00
PROVIDERS: ADMIT Internal Medicine; ATTEND Hospitalist
PROC: 0D9P0ZZ Drainage of Rectum, Open Approach (ICD-10-PCS; 2018-12-25)
PROC: 02HV33Z Insertion of Infusion Device into Superior Vena Cava, Percutaneous Approach (ICD-10-PCS; 2018-12-25)
PROC: 30233K1 Transfusion of Nonautologous Frozen Plasma into Peripheral Vein, Percutaneous Approach (ICD-10-PCS; principal; 2018-12-25 11:00)
DX: K61.1 Rectal abscess (principal); I10 Essential (primary) hypertension; E78.5 Hyperlipidemia, unspecified; M19.90 Unspecified osteoarthritis, unspecified site; E66.01 Morbid (severe) obesity due to excess calories; F17.200 Nicotine dependence, unspecified, uncomplicated; G89.29 Other chronic pain; K76.0 Fatty (change of) liver, not elsewhere classified; E78.00 Pure hypercholesterolemia, unspecified; M17.0 Bilateral primary osteoarthritis of knee; E11.9 Type 2 diabetes mellitus without complications; Z79.82 Long term (current) use of aspirin; Z79.01 Long term (current) use of anticoagulants; Z90.49 Acquired absence of other specified parts of digestive tract; Z90.710 Acquired absence of both cervix and uterus; Z88.1 Allergy status to other antibiotic agents; Z86.711 Personal history of pulmonary embolism; Z91.013 Allergy to seafood; Z82.49 Family history of ischemic heart disease and other diseases of the circulatory system; Z83.3 Family history of diabetes mellitus; Z80.3 Family history of malignant neoplasm of breast; Z72.89 Other problems related to lifestyle; Z80.8 Family history of malignant neoplasm of other organs or systems; Z83.79 Family history of other diseases of the digestive system
CPT/HCPCS: 36415; 74177; 80048; 80053; 80202; 81003; 81015; 83036; 83605; 83735; 85014; 85018; 85025; 85027; 85610; 86078; 86140; 86850; 86900; 86901; 86927; 87040; 87070; 87073; 87076; 87077; 87185; 87186; 87205; 87640; 87641; 93005; 99285; A9270-GY; C1751; G8978-GP-CK; G8979-GP-CH; G8987-GO-CL; G8988-GO-CI; J0692; J1650; J2250; J2270; J2405; J2543; J2704; J2710; J3010; J3370; J3430; J3490; P9017; Q9967

== ENCOUNTER 2019-03-11 09:49 | Observation (INO) | payer MEDICARE, BC ==
[2019-03-11] MEDS ORDERED: NS 0.9% 1000 ML** 1,000 ML IV ONE (10:26)
[2019-03-11] MEDS ORDERED: Ondansetron INJ* 2 MG/ML VIAL IV ONE (10:26)
[2019-03-11] MEDS ORDERED: Morphine 4 MG/ML VIAL (1 ml) 4 MG/ML VIAL IV ONE (10:38)
[2019-03-11 10:46] LABS: ABS Eosinophils 0.1 10^3/ul (0-0.6); ABS Lymphocytes 0.5 10^3/ul (1.0-4.8); ABS Monocytes 0.7 10^3/ul (0-0.8); Eosinophil % 0.6 %; Hematocrit 41 % (35-47); Hemoglobin 13.1 g/dL (12.0-16.0); Lymphocyte % 2.8 %; Mean Corpuscular HGB Conc 32 g/dL (31-36); Mean Corpuscular Hemoglobin 26 pg (27-31); Mean Corpuscular Volume 80 fL (80-97); Mean Platelet Volume 6.6 fL (7.4-10.4); Platelet Count 331 10^3/uL (150-450); Red Blood Count 5.15 10^6 /uL (3.70-4.87); Red Cell Distribution Width 17 % (10-15); White Blood Count 16.4 10^3/uL (3.5-10.8)
--- NOTE | 2019-03-11 10:47 | ED ---
GI/ HPI - HPI Summary HPI Summary: This patient is a 73 year old F brought to ED via EMS with a chief complaint of N/V/D since this morning at 0600. She states she thinks she ate a bad salad last night and felt normal when she went to bed yesterday. She reports vomiting green bile. Patient has not traveled recently, and nobody near her has similar symptoms. Patient has a history HTN controlled with medication, but she has not taken any medication this morning. The CC is described as burning. Patient had surgery two months ago for a pilonidal abscess and has recently finished rehab. The patient rates the pain 5/10 in severity. Symptoms aggravated by nothing. Symptoms alleviated by nothing. Patient reports dizziness, diaphoresis, abdominal cramping, chills. Patient denies fever, myalgia, CP. - History of Current Complaint Chief Complaint: EDNauseaVomitDiarrh Time Seen by Provider: 03/11/19 10:20 Stated Complaint: ABD CRAMPING PER EMS Hx Obtained From: Patient Onset/Duration: Started Hours Ago - 0600 this morning, Still Present Timing: Constant Severity: Moderate Current Severity: Moderate Pain Intensity: 5 Location of Pain: Diffuse Pain Characteristics: Burning Associated Signs and Symptoms: Positive: Negative - Fever, myalgia, Dizziness, Nausea, Vomiting, Diarrhea, Diaphoresis, Chills, Abdominal Pain - Cramping. Negative: Chest Pain Aggravating Factor(s): Nothing Alleviating Factor(s): Nothing - Additional Pertinent History Primary Care Physician: LUCY - Allergy/Home Medications Allergies/Adverse Reactions: Allergies Allergy/AdvReac Type Severity Reaction Status Date / Time clindamycin Allergy Nausea Verified 03/11/19 09:58 crab Allergy Diarrhea/Hi Verified 03/11/19 10:22 ves Home Medications: Home Medications Calcium Carbonate/Vitamin D3 [Calcium 600-Vit D3 400 Tablet] 2 tab PO BID [History Confirmed 03/11/19] Garlic [Garlic Oil] 1 cap PO DAILY 03/11/19 [History Confirmed 03/11/19] [place]-3 Fatty Acids/Fish Oil [Fish Oil 1,000 mg Softgel] 1 cap PO BID 03/11/19 [ History Confirmed 03/11/19] Oxycodone IR 10 MG(NF) 10 mg PO Q4H PRN 03/11/19 [History Confirmed 03/11/19] Warfarin Sodium 1.5 mg PO BEDTIME 03/11/19 [History Confirmed 03/11/19] oxyCODONE SR TAB(*) [Oxycontin 20 mg (*)] 20 mg PO BID 03/11/19 [History Confirmed 03/11/19] PMH/Surg Hx/FS Hx/Imm Hx Endocrine/Hematology History: Reports: 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 Negative: Fever Negative: Chest Pain Positive: Abdominal Pain - Cramping, Vomiting, Diarrhea, Nausea Negative: Myalgia All Other Systems Reviewed And Are Negative: Yes Physical Exam - Summary Physical Exam Summary: GENERAL: Patient is obese F who is lying comfortable in the stretcher. Patient is not in any acute respiratory distress. HEAD AND FACE: Normocephalic EYES: PERRLA, EOMI x 2. EARS: Hearing grossly intact. MOUTH: Oropharynx within normal limits. NECK: Supple, trachea is midline, no adenopathy, no JVD, no carotid bruit. CHEST: Symmetric, no tenderness at palpation LUNGS: Clear to auscultation bilaterally. No wheezing or crackles. CVS: Regular rate and rhythm, S1 and S2 present, no murmurs or gallops appreciated. ABDOMEN: diffusely tender to palpation, worse in epigastric area EXTREMITIES: Full ROM in all major joints, no edema, no cyanosis or clubbing. NEURO: Alert and oriented x 3. No acute neurological deficits. Speech is normal and follows commands. SKIN: Dry and warm RECTAL EXAM: no drainage, redness, warmth, or fluctuance around the surgical site for the patient's previous pilonidal abscess. Triage Information Reviewed: Yes Vital Signs On Initial Exam: Initial Vitals Temp Pulse Resp BP Pulse Ox 97.1 F 89 22 129/80 93 03/11/19 09:54 03/11/19 09:54 03/11/19 09:54 03/11/19 09:54 03/11/19 09:54 Vital Signs Reviewed: Yes Diagnostics - Vital Signs Vital Signs Temp Pulse Resp BP Pulse Ox 03/11/19 10:07 77 93 03/11/19 09:54 97.1 F 89 22 129/80 93 - Laboratory Result Diagrams: 03/12/19 04:47 03/12/19 04:47 Lab Statement: Any lab studies that have been ordered have been reviewed, and results considered in the medical decision making process. - Radiology CXR Radiology Interpretation Completed By: Radiologist Summary of Radiographic Findings: NO ACTIVE CARDIOPULMONARY DISEASE IS NOTED. Dr. Jeong has reviewd this radiology report. - CT A/P CT Interpretation Completed By: Radiologist Summary of CT Findings: No abnormal dilatation of small bowel is noted. No free air or obstruction is noted. No abnormal masses or fluid collection is noted. Dr. Jeong has reviewed this radiology report. - EKG 1037 Cardiac Rate: NL - 82 BPM EKG Rhythm: Sinus Rhythm Summary of EKG Findings: NSR at 82 BPM, Q waves in inferior leads, consistent with an old inferior infarct. Re-Evaluation - Re-Evaluation First Eval Re-Evaluation Time: 14:11 Change: Improved Comment: Patient reports feeling no pain and is almost at baseline. Discussed results with patient. Will wait for a urine sample. GIGU Course/Dx - Course Course Of Treatment: This patient is a 73 year old F brought to ED via EMS with a chief complaint of N/V/D since this morning at 0600. In the ED course, patient received fluids, Zofran, and morphine. Blood work and UA obtained. EKG at 1037 revealed NSR at 82 BPM, Q waves in inferior leads, consistent with an old inferior infarct. CXR revealed NO ACTIVE CARDIOPULMONARY DISEASE IS NOTED. CT A/P revealed no abnormal dilatation of small bowel is noted. No free air or obstruction is noted. No abnormal masses or fluid collection is noted. Case discussed with hospitalist. I discussed results with patient. The patient agrees with this plan. Patient will be admitted [place] [facility] with dx of nausea and vomiting and abdominal pain. - Diagnoses Provider Diagnoses: Nausea and vomiting, Abdominal pain - Physician Notifications Discussed Care Of Patient With: Arnold Matos Time Discussed With Above Provider: 14:55 Instructed by Provider To: Admit As Inpatient - Discussed patient case with Dr. Matos, hospitalist, who accepted the patient for admission to [facility]. Discharge - Sign-Out/Discharge Documenting (check all that apply): Patient Departure - Admit Patient Received Moderate/Deep Sedation with Procedure: No - Discharge Plan Condition: Good Disposition: ADMITTED TO [facility] - Billing Disposition and Condition Condition: GOOD Disposition: Admitted to [facility] - Attestation Statements Document Initiated by Scribe: Yes Documenting Scribe: Cedric Montalvo Provider For Whom Wilfredoe is Documenting (Include Credential): Mitra Jeong MD Scribe Attestation: I, Cedric Montalvo, scribed for Mitra Jeong MD on 03/12/19 at 1043. Scribe Documentation Reviewed: Yes Provider Attestation: The documentation as recorded by the Cedric shirley accurately reflects the service I personally performed and the decisions made by me, Mitra Jeong MD Status of Scribe Document: Viewed
[2019-03-11 10:54] LABS: Activated Partial Thrombo Time 51.3 seconds (26.0-38.0)
[2019-03-11 11:03] LABS: ALT 18 U/L (7-52); AST 26 U/L (13-39); Albumin 3.8 g/dL (3.2-5.2); Alkaline Phosphatase 56 U/L (34-104); Anion Gap 6 mmol/L (2-11); BUN/Creatinine Ratio 17.4 (8-20); Blood Urea Nitrogen 15 mg/dL (6-24); C Reactive Protein 5.79 mg/L (<8.01); CO2 Carbon Dioxide 30 mmol/L (22-32); Calcium 9.3 mg/dL (8.6-10.3); Chloride 100 mmol/L (101-111); EGFR African American 78.5 (>60); EGFR Non-African American 64.9 (>60); Globulin 3.7 g/dL (2-4); Glucose 134 mg/dL (70-100); Magnesium 2.1 mg/dL (1.9-2.7); Potassium 3.9 mmol/L (3.5-5.0); Sodium 136 mmol/L (135-145); Total Protein 7.5 g/dL (6.4-8.9)
[2019-03-11 12:07] LABS: INR 2.02 (0.82-1.09)
[2019-03-11] MEDS ORDERED: Iohexol 300* (CONTRAST) 10 ML SDV IV ONE (12:32)
[2019-03-11 14:46] LABS: Urine Appearance Clear; Urine Bacteria Absent (Absent); Urine Bilirubin Negative (Negative); Urine Blood 1+ (Negative); Urine Color Yellow; Urine Glucose Negative (Negative); Urine Ketones Negative (Negative); Urine Nitrite Negative (Negative); Urine Protein Negative (Negative); Urine Red Blood Cell Trace(0-2/hpf) (Absent); Urine Specific Gravity 1.017 (1.010-1.030); Urine Squamous Epithelial Cell Present (Absent); Urine Urobilinogen Negative (Negative); Urine White Blood Cell Absent (Absent)
[2019-03-11] MEDS ORDERED: Acetaminophen TAB* 325 MG PO PRN (15:48)
[2019-03-11] MEDS ORDERED: Ondansetron INJ* 2 MG/ML VIAL IV PRN (15:48)
[2019-03-11] MEDS ORDERED: oxyCODONE TAB* 5 MG TAB PO PRN (15:54)
--- NOTE | 2019-03-11 17:26 | HP ---
CC: Dr. Saenz * HISTORY AND PHYSICAL: DATE OF ADMISSION: 03/11/19 PRIMARY CARE PROVIDER: Dr. Saenz. ATTENDING PHYSICIAN: Dr. Matos * (dictated by Ishmael Herrera NP). CHIEF COMPLAINT: Nausea, vomiting, diarrhea. HISTORY OF PRESENT ILLNESS: Ms. Tipton is a 73-year-old female with a past medical history significant for unprovoked pulmonary embolism x2, hypertension, hyperlipidemia, OA, perirectal abscess; who presented to the emergency department today with complaints of nausea, vomiting, diarrhea since 0600. The patient reports she went to bed last night in her normal state of health. She reports that she ate dinner about 1930, which was a cold salad made from food that was delivered by [employer]. She reports she woke up about 6 o'clock this morning with lower abdominal pain, dry heaving and chills. She reports she went to the bathroom, had a normal BM and then subsequently had 4 to 5 very loose bowel movements that were "foul-smelling." During this time in the bathroom, she felt dizzy, diaphoretic, had abdominal cramps and chills. She reports that she spent about 0600 to 0930 in the bathroom and her legs started to feel numb from sitting on the toilet and she felt very weak; therefore, called 911. She reports she presented to the emergency room by EMS and she did vomit the contents of her dinner en route and also while here in the emergency department. She reports her nausea improved after being given Zofran here in the emergency room. She reports her abdominal pain improved after vomiting. The patient denies recent fevers, decrease in appetite, chest pain, cough, dysuria, myalgias. The patient denies recent travel or camping. It should be mentioned that the patient was recently admitted due to a perirectal cyst that was operated on by Dr. Mcneil. She was then discharged to a rehab facility for rehab and she has been home from that facility since around 02/28/19. During this time, the patient has also been on a long course of antibiotics, initially for her perirectal abscess and then later for cellulitis. She reports she has been on antibiotics for approximately 15 days. She reports her last dose was probably 02/20/19 or 02/21/19. While in the emergency department, the patient was noted to have leukocytosis at 16.4, but otherwise her labs were unremarkable. The patient's vital signs have been fairly stable with a slightly low blood pressure of 100/65. The patient's emergency room workup included a CT of her abdomen and pelvis, which revealed no abnormal dilatation of the small bowel, no free air or obstruction, no abnormal masses or fluid collection. She also had an EKG which revealed sinus rhythm and a chest x-ray that showed no cardiopulmonary disease. Given the patient's presentation and leukocytosis, the hospitalists were asked to evaluate for admission. PAST MEDICAL HISTORY: 1. History of pulmonary embolism x2 that were unprovoked. 2. Hypertension. 3. Hyperlipidemia. 4. OA. 5. Perirectal abscess. PAST SURGICAL HISTORY: 1. Cholecystectomy. 2. Tonsillectomy. 3. Hysterectomy. 4. Appendectomy. 5. Adrenal tumor removal. 6. I and D of perirectal abscess. HOME MEDICATIONS: 1. Lasix 80 mg p.o. daily. 2. OxyContin 20 mg p.o. b.i.d. 3. Oxycodone 10 mg p.o. q.4 hours p.r.n. 4. [place]-3 one cap p.o. b.i.d. 5. Zocor 20 mg p.o. at bedtime. 6. MiraLAX 17 g p.o. at bedtime. 7. Garlic 1 cap p.o. daily. 8. Coumadin 1.5 mg p.o. at bedtime. 9. Calcium carbonate/vitamin D 2 tabs p.o. b.i.d. 10. Aspirin 81 mg p.o. daily. 11. Acetaminophen 975 mg p.o. t.i.d. p.r.n. ALLERGIES: CLINDAMYCIN, CRAB. FAMILY HISTORY: Father of old age. Mother of bone cancer. The patient had a brother, who of congestive heart failure and had a history of diabetes and cirrhosis. The patient has a sister and a brother, who are alive and healthy. SOCIAL HISTORY: The patient is a former smoker. She reports she smoked from age 19 to approximately 29. The patient denies illicit drug use. The patient denies alcohol abuse. The patient is retired. The patient lives alone. The patient uses a cane for ambulation. The patient's surrogate decision maker will be her daughter, Lucía Gunn, in the event she cannot make decisions for herself. REVIEW OF SYSTEMS: A 14-point review of systems was completed and is negative except for above in the HPI. PHYSICAL EXAMINATION GENERAL: Ms. Tipton is a 73-year-old obese female, who is lying in bed, appears to be in no acute distress, appears stated age. VITAL SIGNS: Temp 97.1, HR 89, RR 22, O2 saturation 93% on room air, BP 129/80. HEENT: EOMs intact. PERRLA. Oral mucosa is moist without lesions. Posterior pharynx is clear. NECK: Supple. No lymphadenopathy. RESPIRATORY: Lungs are clear to auscultation. Good aeration. No wheezes, rhonchi, or rales. CARDIAC: S1, S2 present. Regular rate and rhythm. No murmurs, rubs, or gallops. ABDOMEN: Soft, nontender. Bowel sounds normoactive. EXTREMITIES: No edema. No clubbing or cyanosis. Pedal pulses 2+ bilaterally. MUSCULOSKELETAL: No pain or deformities. NEURO: Neuro exam is grossly intact. No focal deficits or weakness. SKIN: Skin is grossly intact. The patient does have a small open area with possibly granulated tissue to the left side of her cristel cleft, which is where her perirectal abscess was previously. LABORATORY DATA: WBC 16.4, hemoglobin 13.1, hematocrit 41, platelets 331. Sodium 136, potassium 3.9, chloride 100, carbon dioxide 30, BUN 16, creatinine 0.86, glucose 134, lactic acid 1.5. Urine is positive for blood and squamous epithelials. ASSESSMENT AND PLAN: Ms. Tipton is a 73-year-old female with a past medical history significant for pulmonary embolism x2, hypertension, hyperlipidemia, osteoarthritis, perirectal cyst; who presented to the emergency department today with complaints of nausea, vomiting, diarrhea. The patient will be admitted OBV. 1. Nausea, vomiting, diarrhea. The patient has vomited while here in the emergency department, but has being given Zofran. I will continue Zofran p.r.n. I will continue the patient on gentle hydration. I will also continue her on a clear liquid diet. Given her reports of diarrhea and abdominal pain and recent antibiotics, I think it is prudent to send a stool for culture and C. diff. Those results are pending. 2. History of pulmonary embolism x2. The patient has a history of pulmonary embolisms that were unprovoked. The patient is currently on Coumadin. The patient's INR is 2.[address] an order for the patient's Coumadin to be dosed per pharmacy protocol. 3. Hypertension. The patient is currently normo to hypotensive. The only blood pressure med that I see on her med rec is possibly Lasix. Given her nausea, vomiting and diarrhea and her leukocytosis, I am going to hold the Lasix at this time and monitor the patient closely with daily weights and strict I's and O's. I would recommend restarting this as soon as possible. 4. Hyperlipidemia. I will continue the patient's statin. 5. Osteoarthritis. I will continue the patient's home medications of oxycodone and OxyContin. I would recommend holding these for oversedation. 6. Perirectal cyst. The patient reports she is supposed to have a followup with Dr. Mcneil and she is wondering if he can see her here in the hospital. I discussed that he is not on-call this weekend, that it might not happen until Wednesday and if she is already discharged, she will need to follow up with him as an outpatient. She states understanding. The patient's site of her perirectal cyst appears benign with no signs or symptoms of infection. There is no drainage. There is also granulated tissue which represents healing. We will continue to monitor. 7. FEN: The patient will be given a clear liquid diet. 8. Code status: The patient is a full code. 9. DVT prophylaxis: Based on the DVT Risk Assessment, the patient is highest risk. I will continue the patient's Coumadin per pharmacy protocol. TIME SPENT: Approximately 65 minutes was spent on this admission, greater than half the time was spent with the patient and caregiver obtaining my history, performing physical exam, and reviewing my plan of care. This case has been reviewed with my attending, Dr. Matos, who is in agreement with my plan of care. ISHMAEL HERRERA, [employer] [id number]/[facility] #: [id number] SAVANNAH
[2019-03-11] MEDS: NS 0.9% 1000 ML** 1,000 ML IV SCH (18:27)
[2019-03-11] MEDS ORDERED: Atorvastatin* 10 MG TAB PO SCH (21:00)
[2019-03-11] MEDS ORDERED: Warfarin TAB(*) 1 MG PO SCH (21:00)
[2019-03-11] MEDS: oxyCODONE SR TAB(*) 20 MG TAB.SR PO SCH (21:14)
[2019-03-11] MEDS: Calcium/Vitamin D TAB 250/125* TAB PO SCH (21:15)
[2019-03-12 05:05] LABS: INR 2.38 (0.82-1.09)
[2019-03-12 05:11] LABS: ABS Eosinophils 0.1 10^3/ul (0-0.6); ABS Lymphocytes 1.1 10^3/ul (1.0-4.8); ABS Monocytes 0.4 10^3/ul (0-0.8); ABS Neutrophils 4.9 10^3/ul (1.5-7.7); Hematocrit 34 % (35-47); Hemoglobin 10.9 g/dL (12.0-16.0); Lymphocyte % 17.2 %; Mean Corpuscular HGB Conc 32 g/dL (31-36); Mean Corpuscular Hemoglobin 26 pg (27-31); Mean Corpuscular Volume 81 fL (80-97); Mean Platelet Volume 6.8 fL (7.4-10.4); Platelet Count 251 10^3/uL (150-450); Red Blood Count 4.22 10^6 /uL (3.70-4.87); Red Cell Distribution Width 17 % (10-15); White Blood Count 6.6 10^3/uL (3.5-10.8)
[2019-03-12 05:15] LABS: BUN/Creatinine Ratio 14.7 (8-20); Calcium 8.8 mg/dL (8.6-10.3); EGFR African American 102.9 (>60); EGFR Non-African American 85.1 (>60); Potassium 4.1 mmol/L (3.5-5.0)
[2019-03-12] MEDS: NS 0.9% 1000 ML** 1,000 ML IV SCH (08:08)
[2019-03-12] MEDS: Calcium/Vitamin D TAB 250/125* TAB PO SCH (08:09)
[2019-03-12] MEDS: oxyCODONE SR TAB(*) 20 MG TAB.SR PO SCH (08:09)
[2019-03-12] MEDS ORDERED: Aspirin EC TAB* 81 MG TAB.EC PO SCH (09:00)
[2019-03-12 14:39] VITALS: BP 116/58
--- NOTE | 2019-03-12 20:37 | DS ---
CC: Dr. Saenz * DISCHARGE SUMMARY: DATE OF ADMISSION: 03/11/19 DATE OF DISCHARGE: 03/12/19 PRIMARY CARE PROVIDER: Dr. Saenz. ATTENDING PHYSICIAN: Dr. Armando * (dictated by DERECK Tenorio). PRIMARY DIAGNOSIS: Nausea, vomiting, diarrhea, likely due to gastroenteritis. SECONDARY DIAGNOSES: 1. Hypertension. 2. Hyperlipidemia. 3. Perirectal abscess. 4. Osteoarthritis. 5. History of unprovoked pulmonary embolism x2. STUDIES WHILE IN THE HOSPITAL: Abdomen/pelvis CT, 03/11/19, impression: No abnormal dilation of small bowel is noted. No free air or obstruction is noted. No abnormal masses or fluid collection is noted. ECG, 03/11/19: Normal sinus rhythm, rate of 82. There are no ST changes. Chest x-ray, 03/11/19, impression: No active cardiopulmonary disease is noted. DISCHARGE MEDICATIONS: Home medications: 1. Acetaminophen 975 mg p.o. t.i.d. p.r.n. pain. 2. Aspirin 81 mg p.o. daily. 3. Calcium carbonate/vitamin D3 two tabs p.o. b.i.d. 4. Furosemide 80 mg p.o. daily. 5. Garlic 1 cap p.o. daily. 6. [place]-3 fatty acids/fish oil 1 cap p.o. b.i.d. 7. Oxycodone IR 10 mg p.o. q.4 hours p.r.n. pain. 8. Oxycodone SR 20 mg p.o. b.i.d. 9. Polyethylene glycol 3350 17 g p.o. at bedtime. 10. Simvastatin 20 mg p.o. at bedtime. 11. Warfarin 1.5 mg p.o. at bedtime. New home medications: None. HISTORY OF PRESENT ILLNESS/HOSPITAL COURSE: Ms. Tipton is a 73-year-old female with a past medical history significant for hypertension, hyperlipidemia and perirectal abscess, who presented to the emergency department yesterday with complaints of nausea, vomiting, diarrhea that started that morning around 0600. The patient notes that she woke at 6 a.m. and states that her abdomen felt "hard and painful." She notes that the pain was in the epigastric area. She had a formed bowel movement in the morning. Shortly after that, she started to have nausea and vomiting. She noted that she had associated diaphoresis and sweats. She then began to have loose stools approximately x4. She felt lightheaded, dizzy, and faint. She had her daughter call EMS as she felt that she was unable to stand from the toilet seat due to weakness and dizziness. Upon arrival to the ER, the patient had nausea and vomiting x1. The patient was admitted observation for these symptoms. The following day, the patient states that her symptoms are resolved. Again noted, she had nausea with vomiting x1 in the ER, but has had no vomiting since admission to the floor. She has also had no diarrhea. In fact, she has had no bowel movements at all today. Her abdominal pain has been resolved. She tolerated clear liquid diet this morning. Her diet was advanced to full liquids plus low-residue diet, both of which she was able to tolerate without any difficulty. She has not required any Zofran since admission. The patient is noted to have a perirectal abscess. She was on approximately 15 days of antibiotics for this. She finished her antibiotics at the beginning of this month. There was concern that the patient may be having a bout of C. diff colitis, so a stool test has been ordered. The patient has been unable to provide a sample since admission, so we were unable to perform the test. Suspicion for C. diff is fairly low as the patient has had no diarrhea for greater than 24 hours and feels she is back to baseline. There is no evidence of colitis on CT scan. At the time of discharge, the patient denies nausea, vomiting, diarrhea. She denies dizziness and lightheadedness and notes that she has been walking well without any difficulty. She feels she is back to baseline. She has no abdominal pain. She is tolerating solid foods and liquids at this time. She denies chest pain, shortness of breath, dizziness, lightheadedness, abdominal pain, nausea, vomiting, diarrhea, constipation, or pain in the extremities. Blood cultures are negative to date. Ms. Tipton is stable for discharge to home. REVIEW OF SYSTEMS: A 10-point review of systems was performed and all the pertinent positives and negatives are in the HPI. All other systems are negative. PHYSICAL EXAMINATION: Vital signs are temperature 97.0 oral, heart rate 75, respiratory rate 18, oxygen saturation 95%, blood pressure 116/58. General: Ms. Tipton is a well-developed, well-nourished, morbidly obese 73-year-old female , who is sitting in her recliner with her lower extremities elevated. She is pleasant, cooperative, and social. She is in no acute distress. HEENT: Normocephalic, atraumatic. PERRL. EOMI. Nonicteric sclerae. Hearing grossly intact. Oral mucous membranes are moist. There are no lesions. Cardiovascular : Regular rate and rhythm with S1, S2 present without murmurs, rubs, clicks, or gallops. There is no JVD. Pulmonary: Symmetrical chest expansion without use of accessory muscles. Lungs clear to auscultation bilaterally without rhonchi, wheezes, or rales. Abdomen: Obese. Bowel sounds noted in all quadrants. The abdomen is soft and without tenderness to palpation. Musculoskeletal: Able to move all extremities. Extremities: Skin is warm and smooth bilaterally without clubbing or cyanosis. There is trace edema to bilateral lower extremities. Rectum: There is a perirectal abscess noted that is chronic. There is a small opening without surrounding erythema or discharge from the wound. Neuro: The patient is awake. She is alert and oriented x3 without focal neurological deficits. She has a slow, but steady gait. There is no impairment. She uses a cane to walk. DISCHARGE PLAN: Ms. Tipton will be discharged to home. CONDITION: Good. ACTIVITY: As tolerated. DIET: [place]/low-residue with advance to heart-healthy as tolerated. Increase fluid intake. MEDICATIONS: No changes. EDUCATION: 1. Follow up with Dr. Mcneil, [facility], as scheduled for perirectal abscess. 2. Follow up with primary care provider in 4 to 7 days. 3. Return to the ER or nearest hospital if symptoms of nausea, vomiting or diarrhea return. Return for fever, chills, night sweats, worsening of perirectal abscess or skin changes surrounding the wound site. Return for chest pain, shortness of breath, dizziness, lightheadedness, loss of consciousness, or any other worrisome signs or symptoms. This is a summarized report of a complex medical history and hospital stay. For further details, please see the entire medical record. TIME SPENT: Approximately 40 minutes was spent on this discharge, greater than half that time was spent [id number] with the patient and her daughter discussing discharge plans and instructions. DERECK VALVERDE [id number]/[facility] #: [id number] M[facility]ASSETT HOSPITALFreida
[2019-03-12] MEDS ORDERED: Warfarin TAB(*) 1 MG PO ONE (21:00)
== END 2019-03-12 15:55 | disposition home or self-care (01) ==
LOC: ED 09:49 → MED 15:48
PROVIDERS: ADMIT Internal Medicine; ATTEND Internal Medicine
DX: R11.2 Nausea with vomiting, unspecified (principal); R19.7 Diarrhea, unspecified; I10 Essential (primary) hypertension; E78.5 Hyperlipidemia, unspecified; K61.1 Rectal abscess; M19.90 Unspecified osteoarthritis, unspecified site; Z86.711 Personal history of pulmonary embolism; Z79.82 Long term (current) use of aspirin; Z79.01 Long term (current) use of anticoagulants; Z79.899 Other long term (current) drug therapy; Z87.891 Personal history of nicotine dependence
CPT/HCPCS: 36415; 71045; 74177; 80048; 80053; 81003; 81015; 83605; 83690; 83735; 84484; 85025; 85610; 85730; 86140; 87040; 93005; 96361; 96374; 96375; 99285; A9270-GY; G0378; J2270; J2405; Q9967

== ENCOUNTER 2020-05-08 11:00 | Inpatient (IN) ==
[~2020-05-08 11:00] MED LIST: Buffered Lidocaine 1% SYRIN 1 ml INTRADERM ONE; Lactated Ringers 1000 ml BAG 1,000 ML IV SCH
[2020-05-31] MEDS ORDERED: Famotidine IV 10 MG/ML 2 ml VIAL (20 mg) IV ONE (06:00)
[2020-05-31] MEDS ORDERED: Sodium Citrate/Citric Acid LIQ 15 ML UDC PO ONE (06:00)
[2020-05-31] MEDS ORDERED: Buffered Lidocaine 1% SYRIN 1 ml INTRADERM ONE (06:00)
[2020-05-31] MEDS ORDERED: Lactated Ringers 1000 ml BAG 1,000 ML IV SCH (06:00)
[2020-05-31] MEDS ORDERED: ceFAZolin 2 GM PREMIX 2 GM/50 ML BAG ONE (08:58)
[2020-05-31] MEDS ORDERED: Heparin 5000 UNITS/ML 1 mL VIAL ONE (08:58)
[2020-05-31] MEDS ORDERED: ceFAZolin 1 GM ADVAN 1 GM ADDV.VIAL IVPB ONE (08:58)
[2020-05-31] MEDS ORDERED: fentaNYL 250 mcg/5 ml 50 MCG/ML 5 ml VIAL (250 MCG) ONE (09:26)
[2020-05-31] MEDS ORDERED: Propofol 10 MG/ML 20 ML BTL ONE (09:26)
[2020-05-31] MEDS ORDERED: Rocuronium 50 mg VIAL 10 mg/ml 5 ml VIAL (50 mg) ONE ×2 (09:26→14:36)
[2020-05-31] MEDS ORDERED: Dexamethasone IV 4 MG/ML VIAL 1 ml VIAL ONE (09:26)
[2020-05-31] MEDS ORDERED: EPHEDrine (Pressors) 50 MG/ML VIAL ONE (09:26)
[2020-05-31] MEDS ORDERED: Midazolam 2 mg/2 ml VIAL 1 mg/ml 2 ml VIAL (2 mg) ONE (09:26)
[2020-05-31] MEDS ORDERED: Sterile Water for Inj 10 ML ONE (09:26)
[2020-05-31] MEDS ORDERED: Phenylephrine 40 mcg/mL 10mL (400mcg) SYRINGE ONE (09:33)
[2020-05-31] MEDS ORDERED: Lidocaine 2% PF 5 ML VIAL ONE (09:33)
[2020-05-31] MEDS ORDERED: Sodium Citrate/Citric Acid LIQ 15 ML UDC ONE (09:57)
[2020-05-31] MEDS ORDERED: Famotidine IV 10 MG/ML 2 ml VIAL (20 mg) ONE (09:57)
[2020-05-31] MEDS ORDERED: Bupivacaine 0.25% SDV 30 ML ONE (12:23)
[2020-05-31] MEDS ORDERED: Iohexol 180 (CONTRAST) 10 ML SDV IV ONE (12:45)
[2020-05-31] MEDS ORDERED: Heparin 2 UNITS/ML 1000 mls 0 ML IV ONE (12:55)
[2020-05-31] MEDS ORDERED: Iohexol 300 (CONTRAST) 10 ML SDV ONE (12:57)
[2020-05-31] MEDS ORDERED: Remifentanil 2 MG VIAL ONE (13:48)
[2020-05-31] MEDS ORDERED: Phenylephrine IV 10 MG/ML 1 ml VIAL ONE (14:43)
[2020-05-31] MEDS ORDERED: Acetaminophen IV 1 GM/100ML 100 ML ONE (14:55)
[2020-05-31] MEDS ORDERED: fentaNYL 100 mcg/2 ml 50 MCG/ML VIAL IV PRN (15:01)
[2020-05-31] MEDS ORDERED: Naloxone 0.4 mg VIAL 0.4 mg/ml 1 ml VIAL IV PRN (15:01)
[2020-05-31] MEDS ORDERED: HYDROmorphone 1 MG/1 ML SYRINGE IV PRN (15:01)
[2020-05-31] MEDS ORDERED: Ondansetron 4 mg VIAL 2 MG/ML 2 ml VIAL IV PRN (15:01)
[2020-05-31 16:03] VITALS: BP 133/70
== END 2020-05-31 17:21 | disposition home or self-care (01) | DRG 983 ==
LOC: AA 05-31 08:55
PROVIDERS: ADMIT Surgery; ATTEND Surgery